=== PATIENT | male | born 1960 | race Caucasian/White ===

== ENCOUNTER → 2023-08-11 10:42 | Outpatient (REF) | payer MEDICARE, OTHER, SELFPAY | LOC: RAD 10:42 | PROVIDERS: ATTENDING PHYSICIAN Surgery Vascular Surgery; FAMILY PHYSICIAN Internal Medicine | DX: I73.9 Peripheral vascular disease, unspecified (principal) | CPT/HCPCS: 93922; 93925 ==

== ENCOUNTER 2024-07-06 02:20 | Emergency (ER) | payer MEDICARE, OTHER, SELFPAY ==
[2024-07-06 02:31] VITALS: BMI 29.2
[2024-07-06 02:32] VITALS: BP 117/64
--- NOTE | 2024-07-06 02:40 | ED.GENMED ---
History of Present Illness
General
Chief Complaint: Fall
Source: patient
Exam Limitations: none
Time Seen by Provider: 07/06/24 02:38
Nursing documentation reviewed up to this point in time: agreed with
History of Present Illness
History of Present Illness:
This is a 63-year-old male with past medical history of CHF, peripheral artery disease, bipolar disorder, depression presents to emergency department today with concerns of nasal pain and mild headache following a fall a bed tonight. Patient
reports that he was going to bed and woke up in the middle of the night to grab something off of his nightstand when he was reaching for something and slipped out of bed,, hitting his head on the ground and injuring his nose and hitting his head.
He not lose consciousness. He states that he called for staff right away. He denies any neck pain. He denies any chest pain, shortness of breath, dizziness. Staff then found him and called 911. He was not on the floor for a long period of time.
Past History
Past History
ED Past Medical History: Arrthythmia (Paroxysmal atrial fibrillation), CHF, HTN, Renal failure, Other (Bipolar, schizophrenia, heart failure, peripheral arterial disease, degenerative joint disease, type 2 diabetes, cardiomyopathy, ischemic lower
extremity disease) and Other (Anemia, GI bleed, bilateral lower extremity dry gangrene)
Social History
Tobacco: Former smoker
Living: assisted
Employment: Disabled
Family History
Family History: Unable to obtain
Review of Systems
Review of Systems
All Other Systems: ROS reviewed and negative except as documented in HPI and ROS
Phy Exam
Physical Exam
Physical Exam:
General: Patient is well appearing and in no acute distress; non-toxic
Skin: 2 cm laceration noted to the bridge of the nose with active bleeding
Head: No palpable hematomas of the scalp no tenderness to palpation of the facial bones, TMJ joints intact bilaterally
Eyes: Sclera non-icteric. EOMs intact.
Neck: No tenderness palpation of the cervical spine
Cardiac: Regular rate and rhythm, no murmurs, no tenderness palpation of the chest wall
Peripheral Vascular: No lower extremity swelling or edema
Pulm: Normal respiratory effort, no wheezes, rales, or rhonchi
Musculoskeletal: No tenderness palpation of the bilateral upper and lower extremities
Neuro: CN II-XII intact, no focal neurologic deficits.
Psychiatric: Appropriate mood and affect.
Course
Orders/Labs/Results
Orders:
Orders
07/06/24 02:29
CT Cervical Spine W/o Iv Contr Urgent
Comment: incorrect order placed by Rn
Reason For Exam: fall, thinners
CT Head W/o Iv Contrast Urgent
Comment:
Reason For Exam: fall, thinners
07/06/24 03:13
Tetanus/Diphth/Acelpertussis [Adacel] 0.5 ml IM .ONCE ONE
07/06/24 04:25
Amoxicillin 875 mg/Clav 125 mg [Augmentin 875 mg/125 mg] 1 tablet PO NOW STA
Vital Signs
Initial and Last Documented VS:
Initial Vital Signs
Temp Pulse Ox
97.6 F 97
07/06/24 02:26 07/06/24 02:26
Last Documented Vital Signs
Temp Pulse Resp BP Pulse Ox
97.6 F 59 18 148/64 98
07/06/24 02:26 07/06/24 05:28 07/06/24 05:28 07/06/24 06:05 07/06/24 05:30
Procedures
Laceration Closure
nose:
Status of Wound: clean
Size of Wound in cm: 2
Description of Wound Edges: sharp
Preparation: cleaned with saline
Revision/Debridement: routine- no revision
Type of Closure: Dermabond-skin glue
MDM/Problems Addressed
Differential Diagnosis Includes:
Differentials include nasal fracture, anterior epistaxis, subdural hematoma, epidural hematoma, cervical sprain
MDM/Problems Addressed:
63-year-old male presents emergency department today after falling out of bed. Physical exam is well-appearing in no acute distress. He not was consciousness. He is a laceration to the bridge of his nose which was part of Dermabond. CT scan
reveals fracture of the nasal bone. He was started on antibiotics. Referral given for ENT. Patient is presenting. Directions provided discharge. CT shows no evidence of acute intracranial bleeding. He has no evidence of fracture within the
cervical spine no tenderness palpation of the cervical spine. Patient stable for discharge.
*Pulse Oximetry
Patient hypoxic: no
*Critical Care Note
Total Time (30-74mins, 75-104mins- exclusive of procedures): Not Applicable
Data Reviewed
Review of Other/Old Records Reveals: Records (Reviewed ER physician mentation 05/20/2020 patient seen for anterior episodic)
Source: patient and records
ED Attending Note
-
Portions of this chart may have been created with voice recognition software.� Occasional wrong word or��sound alike� substitutions may have occurred due to the inherent limitations of voice recognition software.
Discharge Plan
Departure
Patient Disposition: Home (Routine Discharge)
Date of Disposition: 07/06/24
Time of Disposition: 05:19
Patient with high blood pressure during this ER visit?: Yes
Condition: Good
Discharge Problem:
Fracture of nasal bone, Fall
Instructions: Nose fracture, Laceration Repair With Glue (DC), Preventing falls in adults
Prescriptions:
New
amoxicillin-pot clavulanate 875-125 mg tablet
1 tab PO BID 5 Days Qty: 10 0RF
No Action
ammonium lactate 1 APPLIC lotion
1 applic topical DAILY
Patient Comments:
04/30/19: b/l lower extremities - dry skin
amiodarone [Pacerone] 200 MG tablet
200 mg PO DAILY
cholecalciferol (vitamin D3) 1,000 UNITS tablet
1,000 units PO DAILY
sennosides [senna] 1 TABLET tablet
2 tab PO DAILYPRN PRN (Reason: constipation)
acetaminophen 325 MG tablet
650 mg PO Q4HPRN PRN (Reason: mild pain, temp>100.4)
atorvastatin 20 MG tablet
20 mg PO DAILY
aspirin 81 MG tablet,delayed release (DR/EC)
81 mg PO DAILY
Patient Comments:
on hold 05/20-05/21/20
bisacodyl [OneLAX Bisacodyl] 10 MG suppository
10 mg OR DAILYPRN PRN (Reason: constip. if sorbitol ineffect.)
divalproex 500 MG tablet extended release 24 hr
1,000 mg PO DAILY
benztropine 1 MG tablet
1 mg PO DAILY
sodium phosphates [Enema] 135 ML enema
135 ml OR DAILYPRN PRN (Reason: if suppository ineffective)
folic acid 1 MG tablet
1 mg PO DAILY
sorbitol 30 ML solution
30 ml PO DAILYPRN PRN (Reason: constipation)
sertraline 50 MG tablet
50 mg PO DAILY
olanzapine 20 MG tablet
20 mg PO DAILY
thiamine HCl (vitamin B1) [Vitamin B-1] 50 MG tablet
50 mg PO DAILY
chlorhexidine gluconate 1 ML mouthwash
1 dose dental DAILY
clopidogrel 75 MG tablet
75 mg PO DAILY 0RF
furosemide 20 MG tablet
20 mg PO DAILY 0RF
sodium chloride [Saline Nasal Mist] 126 ML mist
2 spray NS TID Qty: 1 0RF
Rx Instructions:
To start 05/24/20
multivitamin 1 EACH tablet
1 ea PO DAILY
metoprolol succinate [Toprol XL] 50 MG tablet extended release 24 hr
50 mg PO DAILY
clopidogrel 75 MG tablet
75 mg PO DAILY
ferrous sulfate [FeroSul] 325 MG tablet
325 mg PO DAILY
docusate sodium 100 MG capsule
100 mg PO BID
hydrocortisone 1 APPLIC cream
1 applic topical PRN PRN (Reason: .rectal irritation)
metoprolol succinate [Toprol XL] 25 MG tablet extended release 24 hr
25 mg PO DAILY
divalproex 250 MG tablet extended release 24 hr
250 mg PO DAILY
chlorhexidine gluconate 15 ML mouthwash
15 ml PO DAILY
Referrals:
Rebel López MD [Active] - Call in 1-3 days for appt
UNKNOWN - PT DOES,NOT KNOW [Family Provider] -
Activity Restrictions/Additional Instructions:
Your CT scans of your head reveals an anterior nasal bone fracture with no evidence of bleeding in the brain or fracture in the spine.
An antibiotic called Augmentin has been sent to your pharmacy. Please take 1 tablet twice daily for 5 days.
You can take Tylenol as needed for your pain. The glue will peel off on its own as the wound heals. Please keep the wound dry for 24 hours. After 24 hours, you can clean it with mild soap and water. Please do not use hydrogen peroxide or alcohol
in the wound as this will dissolve the glue.
The nasal fracture should heal on its own. Please call the attached number to schedule appointment with ENT for follow-up regarding this.
PLEASE RETURN EMERGENCY DEPARTMENT TO DEVELOP CHEST PAIN, SHORTNESS OF BREATH, PERSISTENT PAIN, HEADACHE, INTRACTABLE NAUSEA OR VOMITING, FAINTING SPELLS, DIZZINESS, OR ANY OTHER SIGNS OR SYMPTOMS WORRISOME TO YOU.
Interventions
Interventions:
*Risk Screen - Suicide Last Done: 07/06/24 02:26
*General Assessment Last Done: 07/06/24 02:26
*Neglect/Abuse Screening Last Done: 07/06/24 02:26
*ED- Fall Risk Assessment Last Done: 07/06/24 02:26
*ED COVID-19 Vaccine History Last Done: 07/06/24 02:26
*Nursing Disposition Last Done: 07/06/24 06:36
ED-Musculoskeletal Assessment Last Done: 07/06/24 02:26
ED- Neurological Assessment Last Done: 07/06/24 02:26
ED-Skin Assessment Last Done: 07/06/24 02:26
Discharge Date and Time
Print Language: PASHTO
[2024-07-06] MEDS: ADACEL 0.5 ML IM (03:46)
[2024-07-06 03:48] VITALS: BP 145/59
[2024-07-06] MEDS: AUGMENTIN 875 MG/125 MG 1 TABLET PO (05:23)
[2024-07-06 05:25] VITALS: BP 164/73
[2024-07-06 06:05] VITALS: BP 148/64
== END 2024-07-06 06:36 | disposition home or self-care (01) ==
LOC: EMR 02:20
PROVIDERS: EMERGENCY PHYSICIAN Emergency Medicine
DX: S02.2XXA Fracture of nasal bones, initial encounter for closed fracture (principal); S01.21XA Laceration without foreign body of nose, initial encounter; R51.9 Headache, unspecified; W06.XXXA Fall from bed, initial encounter; Z23 Encounter for immunization; I13.0 Hypertensive heart and chronic kidney disease with heart failure and stage 1 through stage 4 chronic kidney disease, or unspecified chronic kidney disease; E11.22 Type 2 diabetes mellitus with diabetic chronic kidney disease; N18.9 Chronic kidney disease, unspecified; I50.9 Heart failure, unspecified; I25.5 Ischemic cardiomyopathy; I73.9 Peripheral vascular disease, unspecified; F31.9 Bipolar disorder, unspecified; F32.A Depression, unspecified; F20.9 Schizophrenia, unspecified; M19.90 Unspecified osteoarthritis, unspecified site; D64.9 Anemia, unspecified; I48.0 Paroxysmal atrial fibrillation; E11.51 Type 2 diabetes mellitus with diabetic peripheral angiopathy without gangrene; Z87.891 Personal history of nicotine dependence; Z79.02 Long term (current) use of antithrombotics/antiplatelets; Z88.8 Allergy status to other drugs, medicaments and biological substances
CPT/HCPCS: 99284; 12011; 90471; 70450; 72125; 90715

== ENCOUNTER 2024-07-12 19:21 | Inpatient (IN) | payer MEDICARE, OTHER, SELFPAY ==
[2024-07-12] VITALS (15 sets, daily range): BP systolic 76–134; BP diastolic 40–87; BMI 30.3; BMI 28.3
--- NOTE | 2024-07-12 14:48 | ED.GENMED ---
History of Present Illness
General
Chief Complaint: Change in Mental Status
Source: records
Exam Limitations: clinical condition
Time Seen by Provider: 07/12/24 14:33
History of Present Illness
History of Present Illness:
63-year-old male sent for lethargy. Time course unknown. He did have a fall last week. I am trying to contact the facility to see when there was a change. At this time we have no information.
Past History
Past History
ED Past Medical History: Arrthythmia (Paroxysmal atrial fibrillation), CHF, HTN, Renal failure, Other (Bipolar, schizophrenia, heart failure, peripheral arterial disease, degenerative joint disease, type 2 diabetes, cardiomyopathy, ischemic lower
extremity disease) and Other (Anemia, GI bleed, bilateral lower extremity dry gangrene)
Social History
Tobacco: Former smoker
Living: [facility]
Employment: Disabled
Family History
Family History: Unable to obtain
Review of Systems
Review of Systems
Unable to obtain full review of systems at this time due to: due to acuity
All Other Systems: Not applicable
Phy Exam
Physical Exam
Physical Exam:
GENERAL: Lethargic. Chronically ill-appearing.
EYE: Orbits normal.
NECK: Supple, no significant adenopathy.
ENT: Pharynx without erythema. Poor dentition
CARDIAC: Regular rate and rhythm without any obvious murmurs.
LUNGS: Clear breath sounds,normal
ABDOMEN: Soft, without focal tenderness or distention
NEUROLOGICAL: Lethargic. Will at times attempt to follow very simple commands. However does not really withdraw to pain. Eyes deviated out really bilateral. Pupils relatively small but reactive
SKIN: Warm and dry
MUSCULOSKELETAL: Chronic edema
Course
Orders/Labs/Results
Orders:
Orders
07/12/24 14:30
EKG [Electrocardiogram (*1)] Urgent
Reason for Study: Fatigue / Weakness
EKG- Treatment ONCE
07/12/24 14:32
Complete Blood Count/With Diff Urgent
Comprehensive Metabolic Panel Urgent
Lactic Acid Urgent
Pro-BNP [NT-proBNP] Urgent
Troponin I Urgent
Urinalysis Reflex To Culture Urgent
Date Specimen was Collected: 07/12/24
Time Specimen was Collected: 14:29
Urine Drug Abuse Screen Urgent
Date Specimen was Collected: 07/12/24
Time Specimen was Collected: 14:29
Urine Microscopic Reflex Cult Urgent
07/12/24 14:39
CT Head W/o Iv Contrast Urgent
Comment:
Reason For Exam: lethargy. recent trauma
Bedside Glucose- Treatment ONCE
Cardiac Monitoring- Treatment ONCE
O2 Therapy [RESP] Stat
Titrate/Wean O2 to maintain O2 sat greater than (%): 93
Pulse Ox/cont/shift [RESP] Stat
Quantity: 1
07/12/24 14:40
Electrocardiogram (*1) Stat
Reason for Study: Other
Other Reason for Exam: neuro symptoms
EKG- Treatment ONCE
Ammonia Urgent
Venous Blood Gas Urgent
%Oxygen/Room Air: 94% on 6L NC
07/12/24 15:21
CT Abd/pel Without Iv Or Oral Urgent
Comment:
Reason For Exam: Unresponsive/poor p.o. intake/leukocytosis
07/12/24 15:22
Add On- LAB Urgent
Tests Added?: depakote level
07/12/24 15:27
Add On- LAB Urgent
Tests Added?: Depakane
07/12/24 16:22
CXR Port [CR Chest Portable - 1 View] Urgent
Comment:
Reason For Exam: Lethargy/hypoxia
Reason Study Needs to be Portable: Patient Unstable
07/12/24 16:49
CefTRIAXone [Rocephin] 1,000 mg IV NOW STA
07/12/24 16:53
ABG [Arterial Blood Gas] Urgent
%Oxygen/Room Air: 4l
07/12/24 17:11
Depakane Routine
Comment: DRAW ON PLAIN RED, CANNOT ADD ON
Blood Culture Q30M
[facility] Source: Blood/Venous
Specimen Description:
Blood Culture Q30M
[facility] Source: Blood/Venous
Specimen Description:
07/12/24 17:30
0.9% Sodium Chloride 1000 ml [Nss] 1,000 ml IV 500 mls/hr
07/12/24 17:31
Admit/Transfer Patient As Directed
Co-Sign Provider:
Level of Care: Inpatient admission
Assign to:: Telemetry
Physician / Group: khadar floyd
Diagnosis: enceph 2/2 LLL pna poss aspiration, eva/ckd3, transaminitis
Reason for Telemetry: Arrhythmia
Date to Stop Telemetry: 07/15/24
Time to Stop Telemetry: 11:00
Reason for Hospitalization: enceph 2/2 LLL pna poss aspiration, eva/ckd3, transaminitis
Expected length of stay greater than two midnights?: Yes
ELOS- Estimated Length of Stay in days: 5
I certify the patient meets the requirements for IP care: Yes
Code Status As Directed
Resuscitation Status: Full Code
07/12/24 17:32
Doxycycline Hyclate [Vibramycin] 100 mg 0.9% Sodium Chloride 250 ml [Nss] 250 ml IV NOW
07/12/24 17:39
Add On- LAB Urgent
Tests Added?: urine druge abuse
07/12/24 17:47
PRN Pain Medication Management As Directed
May give lesser potent ordered pain med per pt: Yes
preference::
Protocol:: Medication orders for pain may be administered in a
manner that supports deferring to patient preference
when the pt is:
- Requesting an ordered lesser potent pain medication.
Least to most potent pain medications are defined
as: acetaminophen < NSAID < tramadol < opioids
(morphine, oxycodone, hydromorphone).
- Requesting a lesser dose of the same medication IF
ORDERED.
- Requesting a less intrusive route of administration
if both routes are prescribed by the provider (PO <
IV).
07/12/24 18:04
COVID-19 Antigen Urgent
Source: Nasal Swab
Influenza A+B Rapid Molecular Urgent
[facility] Source: Nasal Swab
Specimen Description:
07/15/24 11:00
DC Protocol for Telemetry ONCE
Abnormal Lab Results
07/12/24 07/12/24 07/12/24
14:32 14:40 15:17
WBC 11.1 H 10^3/uL
(4.8-10.8)
RBC 3.13 L 10^6/uL
(4.70-6.10)
Hgb 9.6 L g/dL
(13.0-18.0)
Hct 28.9 L %
(39.0-52.0)
RDW 15.9 H %
(11.5-14.5)
Abs Immat Gran (auto) 0.1 H 10^3/uL
(0-0.05)
Absolute Neuts (auto) 8.8 H 10^3/uL
(1.4-6.5)
Absolute Lymphs (auto) 0.9 L 10^3/uL
(1.2-3.4)
Absolute Monos (auto) 1.3 H 10^3/uL
(0.1-0.6)
Neutrophils % 79.1 H %
(42.2-75.2)
Lymphocytes % 8.0 L %
(20.5-51.1)
Monocytes % 12.0 H %
(1.7-9.3)
pO2
ABG O2 Sat (Measured)
VBG pO2 69 H mmHg
(30-50)
VBG HCO3 27.8 H mmol/L
(22-27)
BUN 42 H mg/dl
(9-20)
Creatinine 2.5 H mg/dL
(0.7-1.3)
Glucose 123 H mg/dl
(70-99)
AST 86 H U/L
(17-59)
ALT 67 H U/L
(0-50)
Ammonia < 9 L umol/L
(9-30)
Total Protein 5.7 L g/dl
(6.3-8.2)
Albumin 2.8 L g/dl
(3.5-5.0)
Ur Occult Blood Reflex 1+ A
(Negative)
Urine RBC 3-6 A /HPF
(0-2)
Urine Albumin (Reflex) 2+ A
(Neg - Trace)
POC Glucose 108 H mg/dl
(70-99)
07/12/24
16:53
WBC
RBC
Hgb
Hct
RDW
Abs Immat Gran (auto)
Absolute Neuts (auto)
Absolute Lymphs (auto)
Absolute Monos (auto)
Neutrophils %
Lymphocytes %
Monocytes %
pO2 38 L* mmHg
(83-108)
ABG O2 Sat (Measured) 58.5 L %
(94-98)
VBG pO2
VBG HCO3
BUN
Creatinine
Glucose
AST
ALT
Ammonia
Total Protein
Albumin
Ur Occult Blood Reflex
Urine RBC
Urine Albumin (Reflex)
POC Glucose
07/12/24 14:32
07/12/24 14:32
Vital Signs
Initial and Last Documented VS:
Initial Vital Signs
Pulse Resp Pulse Ox
53 19 98
07/12/24 14:57 07/12/24 14:57 07/12/24 14:57
Last Documented Vital Signs
Temp Pulse Resp BP Pulse Ox
97.6 F 59 15 108/46 96
07/12/24 14:58 07/12/24 18:52 07/12/24 18:52 07/12/24 18:52 07/12/24 18:52
MDM/Problems Addressed
Differential Diagnosis Includes:
Patient very lethargic. Time course unknown although implied is being relatively recent. We are contacting the facility to get more information. Multiple potential etiologies including delayed bleed or subdural, CVA, encephalopathy, electrolyte
imbalance, medications. Workup in progress. Discussed with patient's guardian. He is full code at this time although she would reconsider. There is been talk of hospice in the past although this was held off. Immediate decision is whether to
intubate. His oxygen levels are low but reasonable. He is moving air at this time. We will hold off if possible until we gather more information
*Radiology
Radiology exam reviewed: radiology read reviewed (Probable pneumonia left lower lobe. No other acute findings. Head CT no acute findings)
*Pulse Oximetry
Patient hypoxic: yes
*EKG
Interpreted by ED Provider?: Yes
Interpretation: abnormal
Comparison EKG: changes noted
Heart Rate: 55
Rate: bradycardiac
Rhythm: sinus
[place]: left axis deviation
Interval: normal interval
QRS Pattern: left vent hypertrophy
Ischemia: non-specific ST changes
*Pressfitter Interpretation
Rate: bradycardiac
Interpretation: abnormal
Heart Rate: 56
Rhythm: sinus
*Critical Care Note
Total Time (30-74mins, 75-104mins- exclusive of procedures): 45
Data Reviewed
Review of Other/Old Records Reveals: Labs, Records and Testing
Update Note
Update Note:
1520... Multiple rechecks. Blood pressure slightly low although oxygen levels doing well. Decreased O2. IV fluids. Stressed need to go to CT [facility]. Prerenal azotemia by labs. Will add abdominal CT scan. Discussed with nursing facility. Was
slightly off this morning but was able to take his medications. Much worse prior to ER arrival.
1625.. Workup relatively unremarkable except for renal insufficiency. Patient rechecked. Still lethargic but responds somewhat better to painful stimuli will wince open his eyes slightly. Possible CVA possible med effect. Discussed with
patient's guardian who still wants full code at this time. Will admit for further care
ED Attending Note
-
Portions of this chart may have been created with voice recognition software.� Occasional wrong word or��sound alike� substitutions may have occurred due to the inherent limitations of voice recognition software.
Discharge Plan
Departure
Patient Disposition: Admit
Date of Disposition: 07/12/24
Time of Disposition: 16:51
Presentation/result/management discussed w/ accepting MD/DO: Hospitalist
Discharge Problem:
Lethargy/change in mental status, Acute renal insufficiency lethargy/jones, Probable left lower lobe pneumonia
Prescriptions:
No Action
amiodarone [Pacerone] 200 MG tablet
300 mg PO BID
cholecalciferol (vitamin D3) 1,000 UNITS tablet
1,000 units PO DAILY
sennosides [senna] 1 TABLET tablet
1 tab PO BID
acetaminophen 325 MG tablet
650 mg PO Q4HPRN PRN (Reason: mild pain, temp>100.4)
atorvastatin 20 MG tablet
60 mg PO HS
aspirin 81 MG tablet,delayed release (DR/EC)
81 mg PO DAILY
bisacodyl [OneLAX Bisacodyl] 10 MG suppository
10 mg AR DAILYPRN PRN (Reason: if no bm aftr sorbitol )
benztropine 1 MG tablet
1 mg PO DAILY
sorbitol 30 ML solution
30 ml PO DAILYPRN PRN (Reason: constipation)
sertraline 50 MG tablet
50 mg PO DAILY
olanzapine 20 MG tablet
20 mg PO DAILY
furosemide 20 MG tablet
20 mg PO DAILY 0RF
metoprolol succinate [Toprol XL] 50 MG tablet extended release 24 hr
75 mg PO DAILY
clopidogrel 75 MG tablet
75 mg PO DAILY
docusate sodium 100 MG capsule
100 mg PO BID
sennosides [senna] 8.6 mg Tablet
17.2 mg PO DAILYPRN PRN (Reason: constipation)
divalproex [Depakote] 250 mg Tablet,Delayed Release (Dr/Ec)
750 mg PO BID
polyethylene glycol 3350 [Miralax] 17 gram Powder In Packet
17 g PO DAILY
calcium carbonate [Calcium 600] 600 mg calcium (1,500 mg) Tablet
1,200 mg PO DAILY
tamsulosin [Flomax] 0.4 mg Capsule
0.8 mg PO HS
lisinopril 10 mg Tablet
15 mg PO DAILY
Fleet Enema 19-7 gram/118 mL Enema
118 ml AR DAILYPRN PRN (Reason: if no bm aftr dulcalax)
guaifenesin 600 mg Tablet Extended Release 12hr
600 mg PO BIDPRN PRN (Reason: cough)
Referrals:
UNKNOWN,NO INTERVIEW [Family Provider] -
Interventions
Interventions:
*Risk Screen - Suicide Last Done: 07/12/24 14:58
*General Assessment Last Done: 07/12/24 14:58
*Neglect/Abuse Screening Last Done: 07/12/24 14:58
*ED- Fall Risk Assessment Last Done: 07/12/24 14:58
*ED COVID-19 Vaccine History Last Done: 07/12/24 14:58
ED- Pulmonary Assessment Last Done: 07/12/24 14:58
ED-Psychological Assessment Last Done: 07/12/24 14:58
ED- Neurological Assessment Last Done: 07/12/24 14:58
ED- Cardiac Assessment Last Done: 07/12/24 14:58
ED Swallowing Screen Last Done: 07/12/24 14:58
Discharge Date and Time
Print Language: SPANISH
[2024-07-12 14:49] LABS: Venous Blood Gas B.E. 2.2 mmol/L (-4 to +4); Venous Blood Gas HCO3 27.8 mmol/L (22-27); Venous Blood Gas O2 Sat % 94.4 %; Venous Blood Gas pCO2 47 mmHg (35-48); Venous Blood Gas pH 7.38 (7.32-7.43); Venous Blood Gas pO2 69 mmHg (30-50)
[2024-07-12 14:50] LABS: Hematocrit 28.9 % (39.0-52.0); Hemoglobin 9.6 g/dL (13.0-18.0); Mean Corp Hgb Conc. 33.2 g/dL (33.0-37.0); Mean Corpuscular Hgb 30.7 pg (27.0-31.0); Mean Corpuscular Volume 92.3 fL (80.0-94.0); Mean Platelet Volume 10.4 fL (7.4-10.4); Platelet Count 155 10^3/uL (130-400); Red Blood Cell Count 3.13 10^6/uL (4.70-6.10); Red Cell Dist. Width 15.9 % (11.5-14.5); White Blood Cell Count 11.1 10^3/uL (4.8-10.8)
[2024-07-12 15:11] LABS: Lactic Acid 1.4 mmol/L (0.7-2.0)
[2024-07-12 15:13] LABS: ALT (SGPT) 67 U/L (0-50); AST (SGOT) 86 U/L (17-59); Albumin 2.8 g/dl (3.5-5.0); Alkaline Phosphatase 70 U/L (38-126); Blood Urea Nitrogen 42 mg/dl (9-20); Calcium 8.4 mg/dl (8.4-10.2); Carbon Dioxide 27 mmol/L (22-30); Chloride 106 mmol/L (98-107); Estimated Creatinine Clearance 38 ml/min; Glucose 123 mg/dl (70-99); Potassium 4.2 mmol/L (3.5-5.1); Sodium 140 mmol/L (135-145); Total Bilirubin 0.9 mg/dl (0.2-1.3); Total Protein 5.7 g/dl (6.3-8.2); Urine Albumin 2+ (Neg - Trace); Urine Bilirubin Negative (Negative); Urine Glucose Negative (Negative); Urine Ketone Negative (Negative); Urine Leukocyte Negative (Negative); Urine Nitrite Negative (Negative); Urine Occult Blood 1+ (Negative); Urine Specific Gravity 1.005 (<1.030); Urine Urobilinogen 1+ (Neg - 1+); eGFR 28.16
[2024-07-12 15:17] LABS: Urine Character Clear (Clear); Urine Color Yellow
[2024-07-12 15:17] LABS: Ammonia < 9 umol/L (9-30)
[2024-07-12 15:20] LABS: Glucose - Point of Care 108 mg/dl (70-99)
[2024-07-12 15:20] LABS: NT-proBNP 4170 pg/ml; Troponin I 0.016 ng/ml
[2024-07-12 15:27] LABS: Urine Mucus Few
[2024-07-12 15:28] LABS: Urine Amorphous Seen; Urine Squamous Cell 0-2 /LPF (Few)
[2024-07-12 15:29] LABS: Urine Granular Cast 0-2 /LPF (0); Urine Waxy Cast 0-2 /LPF
[2024-07-12 15:30] LABS: Urine White Cell 0-2 /HPF (0-5)
[2024-07-12 15:34] LABS: % Basophils 0.3 % (0-2); % Eosinophils 0.1 % (0-6); % Immature Granulocytes 0.5 % (0-0.5); % Neutrophils 79.1 % (42.2-75.2); Absolute Immature Granulocytes 0.1 10^3/uL (0-0.05); Absolute Lymphocytes 0.9 10^3/uL (1.2-3.4); Absolute Monocytes 1.3 10^3/uL (0.1-0.6); Absolute Neutrophils 8.8 10^3/uL (1.4-6.5); Nucleated Red Blood Cells % 0 % (-)
--- NOTE | 2024-07-12 16:43 | HPS.HSE ---
Family Physician
-
Family Physician: NO INTERVIEW UNKNOWN
Chief Complaint
-
Lethergy
History of Present Illness
63 year male sent for lethargy of unknown time. According to the nurse he has increased weakness over the past week, typically pivots to stands in own room feeds self, Fed Self breakfast today but Progressive decline by Lunchtime today was unable
to do anything or eat was extremely lethargic not responding. Per nursing No reported h/a, nausea, vomiting, fever, abd pain, chest pain, palpitations, cough, shortness of breath. The patient had a fall last week fracturing his nose.. According
to the nurse at [facility] he had a creatinine of 1.95 with bun of 26 on 07/08/2024 currently today he is creat is 2.5 with a bun of 42. The patient is obtunded opens eyes briefly to name then falls right back asleep. Patient has a past medical
history of CVA per CT head schizophrenia with flights of ideas talks to self, bipolar disorder, depression, cognitive impairment�slight typically knows name, place of living, paroxysmal A-fib, chronic ambulatory dysfunction pivots to stand uses
wheelchair, CKD stage III?, Chronic CHF, cardiomyopathy, chronic anemia, GI bleed, DM2, HTN, PAD, ischemia lower extremity, bilateral lower extremity dry gangrene toes, DJD, former smoker, former alcoholic, constipation
Medical History
Past Medical History
Past Medical History: Reports Other
Additional Past Medical History:
schizophrenia with flights of ideas talks to self
bipolar disorder
depression
cognitive impairment�slight typically knows name, place of living, feed self, pivots to transfer self minimal assist with bathing
Paroxysmal A-fib
CVA per CT head
chronic ambulatory dysfunction pivots to stand uses wheelchair
CKD stage III?
Chronic CHF
cardiomyopathy
chronic anemia
GI bleed
DM2
HTN
PAD
ischemia lower extremity
bilateral lower extremity dry gangrene toes
DJD
former smoker
former alcoholic
constipation
Past Surgical History: Reports Other (Hernia repair)
Social History
Tobacco: Former Smoker
Alcohol: Former
Personal: Single
Living: Longterm ([facility])
Employment: Disabled
Family History
Family History: Unable to Obtain
Allergies / Home Medications
Allergies reflects when Allergies were last updated in [employer].
Home Medications with original date entered in [employer]
Allergy/Medication List:
Allergies
Allergy/AdvReac Type Severity Reaction Status Date / Time
haloperidol Allergy Unknown Verified 07/06/24 02:26
Home Medications
acetaminophen 325 mg tablet 650 mg PO Q4HPRN PRN mild pain, temp>100.4 04/07/19
amiodarone 200 mg tablet (Pacerone) 300 mg PO BID Heart disease 04/07/19
aspirin 81 mg tablet,delayed release 81 mg PO DAILY Blood clot prevention/tx 04/07/19
atorvastatin 20 mg tablet 60 mg PO HS High cholesterol 04/07/19
benztropine 1 mg tablet 1 mg PO DAILY Neurological Condition 04/07/19
bisacodyl 10 mg rectal suppository (OneLAX Bisacodyl) 10 mg WI DAILYPRN PRN if no bm aftr sorbitol 04/07/19
cholecalciferol (vitamin D3) 25 mcg (1,000 unit) tablet 1,000 units PO DAILY Supplement 04/07/19
olanzapine 20 mg tablet 20 mg PO DAILY Mental Health/Anxiety 04/07/19
sennosides 8.6 mg tablet (senna) 1 tab PO BID 04/07/19
sertraline 50 mg tablet 50 mg PO DAILY Mental Health/Anxiety 04/07/19
sorbitol 70 % solution 30 ml PO DAILYPRN PRN constipation 04/07/19
furosemide 20 mg tablet 20 mg PO DAILY 05/17/19
clopidogrel 75 mg tablet 75 mg PO DAILY 01/16/21
docusate sodium 100 mg capsule 100 mg PO BID 01/16/21
metoprolol succinate 50 mg tablet,extended release 24 hr (Toprol XL) 75 mg PO DAILY 01/16/21
calcium carbonate (Calcium 600) 1,200 mg PO DAILY 07/12/24
divalproex 250 mg tablet,delayed release (Depakote) 750 mg PO BID 07/12/24
guaifenesin 600 mg tablet, extended release 12 hr 600 mg PO BIDPRN PRN cough 07/12/24
lisinopril 10 mg tablet 15 mg PO DAILY 07/12/24
polyethylene glycol 3350 17 gram oral powder packet (Miralax) 17 g PO DAILY 07/12/24
sennosides 8.6 mg tablet (senna) 17.2 mg PO DAILYPRN PRN constipation 07/12/24
sodium phosphates 19 gram-7 gram/118 mL enema (Fleet Enema) 118 ml WI DAILYPRN PRN if no bm aftr dulcalax 07/12/24
tamsulosin 0.4 mg capsule (Flomax) 0.8 mg PO HS 07/12/24
Review of Systems
-
History Source: Longterm ([place] female nurse at [facility])
A 12 point ROS was completed and negative except as noted: Yes
Constitutional: Reports Fatigue (Progressive over the past week); Denies Fever or Chills
EENT: Reports Other (Resolving ecchymosis bilateral lower orbits due to fall 1 week ago with nasal bone fracture); Denies Sore Throat or Runny Nose
Respiratory: Denies Cough or Trouble Breathing
Cardiac: Denies Chest Pain, Diaphoresis, Palpitations or Syncope
Abdomen/GI: Denies Abdominal Pain, Nausea, Vomiting, Diarrhea or Constipated
: Denies Dysuria, Frequency, Flank Pain or Incontinence
Musculoskeletal: Denies Joint Pain or Edema
Skin: Denies Itching or Rash
Neurological: Reports Weakness (Generalized); Denies Dizzy or Headache
Endocrine: Reports Other (Decreased oral intake over the past few days)
Psych: Reports Other (Obtunded opens eyes briefly to name then falls asleep)
Physical Exam
Vital Signs
Vital Signs
Temp Pulse Resp BP Pulse Ox
97.6 F 61 21 127/80 97
07/12/24 14:58 07/12/24 16:04 07/12/24 16:04 07/12/24 16:04 07/12/24 16:04
Physical Exam
General: Poor Appetite (Crease over the past week) and Other (Obtunded opens eyes briefly to name then falls asleep); No Fever or Chills
HEENT: NormoCephalic, Anicteric, PERRLA, Radium Conjunctivae, Oxygen and Other (Healing bruises bilateral orbits from fall 1 week ago)
Respiratory: Rhonchi (Expiratory right upper lung); No Wheezes or Rales
Cardiac: S1/S2 and Regular Rhythm; No Murmur, Rub or Gallop
Breast: Deferred by me
GI: Soft, Non Tender, Non Distended, Normal Bowel Sounds and No Hepatosplenomegaly
Rectal: Deferred by Provider
Genito-urinary: Deferred by me
Musculoskeletal: No Clubbing, No Cyanosis and No Edema
Skin: Warm and Dry; No Rash
Neuro: Other (Obtunded opens eyes briefly to name then falls asleep)
Psych: Other (Obtunded)
Laboratory Results
-
07/12/24 14:32
07/12/24 14:32
Laboratory Results
Lactic Acid 1.4 mmol/L (0.7-2.0) 07/12/24 14:32
Total Bilirubin 0.9 mg/dl (0.2-1.3) 07/12/24 14:32
AST 86 U/L (17-59) H 07/12/24 14:32
ALT 67 U/L (0-50) H 07/12/24 14:32
Alkaline Phosphatase 70 U/L (38-126) 07/12/24 14:32
Troponin I 0.016 ng/ml 07/12/24 14:32
Data Reviewed
-
CT Scan: Report Reviewed by me
Lab Data: Labs Reviewed by me
Impression/Plan
-
Impression/Plan:
Admit To telemetry
# Metabolic encephalopathy likely secondary to LLL PNA concern possible aspiration pneumonia
-97%
-O2 nasal cannula
- Iv Zosyn, doxycyline
- Check Depakote level, blood cultures x 2
- Check COVID, influenza
- Speech swallow eval
Ct abd/pelvis without IV or oral Contrast :
1. Left lower lobe consolidation highly suspicious for pneumonia. Recommend follow-up imaging to rule out underlying mass.
2. No significant acute process in the abdomen or pelvis.
#Debo on CKD 3
Decreased oral intake over the past week per nursing staff at [facility]
creat 2.5 was 1.95 with bun 26 on 07/08/2024
- IV NSS1 L now then IV NSS 60 cc an hour times additional liter
- Follow CMP
-HOLD lisinopril 15 mg daily, Lasix 20 mg daily
#Acute transaminitis likely reactive
ast 86, alt 67
- Follow CMP
- Hold atorvastatin 60 mg at bedtime
#CVA HX
Old bilateral basal ganglia infarcts redemonstrated
Ct head:
The ventricles are normal in size, configuration, and position for age. There is no intra- or extra-axial mass, hemorrhage, or fluid collection.
Old bilateral basal ganglia infarcts redemonstrated
No new suspicious areas of abnormal mass effect or attenuation are noted. Small right maxillary sinus mucus retention cyst redemonstrated.
No depressed calvarial fracture. Minimally depressed right nasal bone fracture.
#Fall last week with nasal fracture
- Healing bruises under bilateral eyes
PT/OT consult
#Bipolar Schizophrenia
#History of depression
-cont Divalproex 750 mg twice daily , cont Olanzapine 20 mg daily, Zoloft 50 mg daily
#Former alcoholic
#Mild cognitive impairment
According to nursing staff knows first and last name, knows location of his room wheels himself throughout the facility feed self transfers self with pivoting and standing is able to wash self with mild assistance
#Parox. Afib
-cont amiodarone 300 mg daily , cont Asa 81 mg daily ,cont metoprolol 25mg Daily
#Chronic Chf
#Cardiomyopathy
Bnp 4170
-Hold Lasix as patient appears dry
#Chronic anemia
hgb 9.6 Prior fluctuating prior 12.6 on 12/2020 prior 8 on 05/17/19
#GI Bleed hx
- Continue calcium carbonate 1200 mg p.o. daily
#DM2
accuchecks Q6h with SSI low, check HgbA1c
#HTN
Bp 127/80
- Hold lisinopril 15 mg daily due to DEBO, continue metoprolol succinate 75 mg daily with hold parameters
#BPH
UA negative
- Continue Flomax 0.8 mg at bedtime with hold parameters
#PAD
#Ischemia lower extremity disease
#Bilat lower extremity dry gangrene
- cont Plavix 75 mg daily
#DJD
#Constipation
- CT abdomen pelvis negative for constipation
MiraLAX 17 g daily, senna 17.2 mg p.o. daily as needed constipation, continue Colace 100 mg p.o. twice daily
#Former smoker
#Chronic ambulatory dysfunction pivots to transfer, uses walker
- PT/OT
Dvt proph
Subcu heparin
Full code per alf record patient also has guardian Yamini Tran [phone]
[2024-07-12 17:00] LABS: B.E. 0.2 mmol/L; O2 Saturation % 58.5 % (94-98); PCO2 46 mmHg (35-48); pH 7.36 (7.35-7.45)
[2024-07-12 17:01] LABS: PO2 38 mmHg (83-108)
[2024-07-12 17:35] LABS: Depakane 72.5 ug/ml (50.0-120.0)
[2024-07-12] MEDS: ROCEPHIN 1000 MG IV (17:45)
[2024-07-12] MEDS: NSS 1000 IV ×2 (17:48→23:00)
[2024-07-12] MEDS: VIBRAMYCIN 260 MG IV (17:48)
--- NOTE | 2024-07-12 18:00 | W.PN.UPDATE ---
Update Note
Progress Note Update
This is an addendum to the H&P written by Chloe Hollins on 07/12/2024. Patient seen and examined independently with SKI PATROL DIRECTOR.
63-year-old male past medical history of paroxysmal atrial fibrillation, chronic CHF, PAD, CKD 3, CVA, bipolar schizophrenia, depression, chronic anemia, GI bleeding, type 2 diabetes, hypertension, BPH, degenerative disease, constipation, former
smoker, chronic ambulatory dysfunction, presenting for weakness, failure to thrive, eating less over the past few days but all of a sudden became obtunded today after breakfast.
Vital signs unremarkable. Patient appears very clinically dry on examination.
Labs show PRESTON with creatinine of 2.5 from 1.6. Mild transaminitis. Ammonia level negative. Cardiac BNP 4100. Leukocytosis. Hemoglobin 9.6 within his normal range. ABG shows PO2 of 38, normal pH of 7.36.
CT head no acute abnormality.
CT abdomen pelvis shows left lower lobe consolidation highly suspicious for pneumonia. Chest x-ray shows bibasilar pneumonia.
Patient with metabolic encephalopathy and obtundation seems to be secondary to pneumonia possible aspiration pneumonia.
Blood cultures are pending. Check COVID and flu. IV fluids. Zosyn/doxycycline. Hold nephrotoxic medications.
[2024-07-12 18:04] LABS: Amphetamines Negative (Negative); Barbiturates Negative (Negative); Benzodiazepines Negative (Negative); Buprenorphine Negative (Negative); Cocaine Negative (Negative); Marijuana Negative (Negative); Methadone Negative (Negative); Methamphetamines Negative (Negative); Opiates Negative (Negative); Phencyclidine Negative (Negative); Tricyclic Antidepressants Negative (Negative)
[2024-07-12 18:26] LABS: COVID-19 Antigen Negative (Negative)
[2024-07-12] MEDS: PACERONE PO (23:01)
[2024-07-12] MEDS: ZOSYN 50 IV (23:02)
[2024-07-12] MEDS: SENOKOT 8.6 MG PO (23:28)
[2024-07-12] MEDS: COLACE PO ×2 (23:29→23:47)
[2024-07-12] MEDS: HEPARIN 5000 UNITS SC (23:29)
[2024-07-12] MEDS: FLOMAX PO (23:29)
[2024-07-12] MEDS: DEPAKOTE (12 HR RELEASE) PO ×2 (23:40→23:46)
[2024-07-13] VITALS (7 sets, daily range): BP systolic 104–162; BP diastolic 58–86; O2SAT 95; BMI 28.0
[2024-07-13 00:13] LABS: Glucose - Point of Care 118 mg/dl (70-99)
[2024-07-13] MEDS: ZOSYN 50 IV ×3 (04:02→16:28)
[2024-07-13] MEDS: VIBRAMYCIN 260 MG IV (05:31)
[2024-07-13 05:57] LABS: Glucose - Point of Care 105 mg/dl (70-99)
--- NOTE | 2024-07-13 08:42 | W.PN.HOSP.TC ---
Addendum entered and electronically signed by Yazan Lindquist MD 07/13/24 13:21:
updated POA today, Wanda. RAMO asked cardio evaluation.
Original Note:
Today's Communication/Plan
-
IV antibiotics.
Assessment / Plan
Assessment / Plan
Physical exam:
General: Acute on chronically ill
HEENT: Poor dentition. Normocephalic, Atraumatic and dry mucous Membranes
Respiratory: Bilateral rhonchi; Negative Wheezes, Rales
Cardiac: Regular Rhythm and S1/S2
GI: Soft, Nontender and Nondistended
Musculoskeletal: No Clubbing, No Cyanosis and No Edema
Neuro: Awake, Alert and Oriented
Psych: Calm
A/P:
Acute metabolic encephalopathy:
Related to PRESTON and pneumonia
Improving
Aspiration pneumonia:
Continue IV antibiotic--> discontinue Rocephin and doxycycline and continue with Zosyn
Monitor clinical course
PRESTON:
Improved with IV hydration
Stop IV fluid
Avoid nephrotoxic
Monitor renal function
Dysphagia:
Speech therapy recommend to start IDDSI level 6
Plan for VSE
Elevated LFTs:
Monitor trend
Continue hold statins
Check ultrasound right upper quadrant
Recent fall with nasal fracture:
Pain control
PT eval
History of schizophrenia/depression/cognitive impairment/former alcoholic:
On Depakote olanzapine and Zoloft
Obtain twelve-lead EKG
Chronic systolic CHF:
Holding diuretics due to PRESTON
On b-blockers
Paroxysmal atrial fibrillation:
Sinus bradycardia on admission EKG
On metoprolol for rate control
On amiodarone for antiarrhythmic-appears to be a high dose
Diabetes mellitus type 2:
Insulin sliding scale
BPH:
Continue
Peripheral vascular disease:
Continue antiplatelets
DVT prophylaxis:
Heparin SQ
CODE STATUS:
Full code
Total time spent on today's encounter was 52 minutes which included time spent in counseling the patient/family regarding diagnosis and treatment plan as listed above, goals of care, and symptom management. Case was discussed with nursing staff,
specialists, and care coordinators/case management. All labs and imaging personally reviewed by me. Remainder the time spent in detailed review of previous records, lab data, imaging, and other medical provider documentation.
Anticipated Discharge: > 48 hours
Subjective/Interval History
-
Date of Service: July 13, 2024
Patient more alert today. Still has some cough. Afebrile
Objective Data
-
Labs:
Laboratory Results
07/13/24
06:28
WBC Pending
Hgb Pending
Hct Pending
Plt Count Pending
Sodium Pending
Potassium Pending
Chloride Pending
Carbon Dioxide Pending
BUN Pending
Creatinine Pending
Glucose Pending
Calcium Pending
Total Bilirubin Pending
AST Pending
ALT Pending
Alkaline Phosphatase Pending
Vital Signs:
Vital Signs
Temp Pulse Resp BP Pulse Ox
99.1 F 56 22 137/59 96
07/13/24 07:00 07/13/24 07:00 07/13/24 07:00 07/13/24 07:00 07/13/24 07:00
[2024-07-13 08:44] LABS: Hematocrit 27.4 % (39.0-52.0); Hemoglobin 8.6 g/dL (13.0-18.0); Mean Corp Hgb Conc. 31.4 g/dL (33.0-37.0); Mean Corpuscular Hgb 30.4 pg (27.0-31.0); Mean Corpuscular Volume 96.8 fL (80.0-94.0); Mean Platelet Volume 10.6 fL (7.4-10.4); Platelet Count 133 10^3/uL (130-400); Red Blood Cell Count 2.83 10^6/uL (4.70-6.10); Red Cell Dist. Width 15.8 % (11.5-14.5); White Blood Cell Count 8.4 10^3/uL (4.8-10.8)
[2024-07-13 08:50] LABS: ALT (SGPT) 61 U/L (0-50); AST (SGOT) 73 U/L (17-59); Alkaline Phosphatase 60 U/L (38-126); Blood Urea Nitrogen 27 mg/dl (9-20); Calcium 6.4 mg/dl (8.4-10.2); Carbon Dioxide 21 mmol/L (22-30); Chloride 115 mmol/L (98-107); Estimated Creatinine Clearance 70 ml/min; Glucose 44 mg/dl (70-99); HDL Cholesterol 13 mg/dl; LDL Cholesterol, Calculated 29.99999 mg/dl; Magnesium 1.5 mg/dl (1.6-2.3); Potassium 3.7 mmol/L (3.5-5.1); Sodium 144 mmol/L (135-145); Total Bilirubin 0.3 mg/dl (0.2-1.3); Total Cholesterol < 50 mg/dl (50-199); Total Protein 4.7 g/dl (6.3-8.2); Triglyceride 37 mg/dl (10-149); Very Low Density Lipoprotein 7 mg/dl (0-30); eGFR > 60.00
[2024-07-13 09:21] LABS: Glycohemoglobin (HgbA1c) 5.2 % (4.0-5.6)
[2024-07-13] MEDS: DEXTROSE 50% SYRINGE 25 GRAMS IV (09:29)
--- NOTE | 2024-07-13 09:32 | PTOTSP ---
Addendum entered and electronically signed by ST Harry 07/14/24 11:50:
Full supervision
If increased signs of dysphagia/aspiration observed - please hold PO until re-evaluation.
Original Note:
Dysphagia Eval
Patient with chronic risk factors for dysphagia and aspiration complications (i.e., PMH of CVA, Schizophrenia, cognitive impairment; many missing teeth in poor condition with poor oral hygiene) and now admitted with concern for aspiration PNA.
Recommend:
1. IDDSI Level 6 Soft/Bite Sized, Thin Liquids
2. Supervision and assist as needed
3. Aspiration precautions: upright to 90 degrees, single sips/bites, slow rate, reduce distractions
4. Oral care 3x daily
5. Consider video swallow to objectively assess swallow
[2024-07-13] MEDS: CALCIUM GLUCONATE 100 IV (09:38)
--- NOTE | 2024-07-13 10:00 | PTCARENOTE ---
RN received critical lab value at 0905 today that glucose was 44. RN checked on glucometer and got BS 70. results did not appear in miscellaneous results. notified on lab value and glucometer reading. ordered received
[2024-07-13 10:08] LABS: % Basophils 0.2 % (0-2); % Eosinophils 0.7 % (0-6); % Immature Granulocytes 0.8 % (0-0.5); % Lymphocytes 9.1 % (20.5-51.1); % Monocytes 12.2 % (1.7-9.3); Absolute Eosinophils 0.1 10^3/uL (0-0.7); Absolute Immature Granulocytes 0.1 10^3/uL (0-0.05); Absolute Lymphocytes 0.8 10^3/uL (1.2-3.4); Absolute Neutrophils 6.4 10^3/uL (1.4-6.5); Nucleated Red Blood Cells % 0 % (-)
[2024-07-13] MEDS: HEPARIN 5000 UNITS SC ×2 (10:58→20:29)
[2024-07-13] MEDS: ZYPREXA 20 MG PO (10:59)
[2024-07-13] MEDS: MIRALAX 17 GRAMS PO (10:59)
[2024-07-13] MEDS: SENOKOT 8.6 MG PO ×2 (11:00→20:30)
[2024-07-13] MEDS: ASPIR LOW (ENTERIC COATED) 81 MG PO (11:00)
[2024-07-13] MEDS: DEPAKOTE (12 HR RELEASE) 750 MG PO ×2 (11:00→20:30)
[2024-07-13] MEDS: PACERONE 300 MG PO (11:01)
[2024-07-13] MEDS: PLAVIX 75 MG PO (11:01)
[2024-07-13] MEDS: OSCAL CAL 500 1000 MG PO (11:01)
[2024-07-13] MEDS: COLACE 100 MG PO ×2 (11:01→20:30)
[2024-07-13] MEDS: COGENTIN 1 MG PO (11:04)
[2024-07-13] MEDS: TOPROL XL PO (11:04)
[2024-07-13] MEDS: VITAMIN D3 (cholecalciferol) 25 MCG PO (11:04)
[2024-07-13] MEDS: ZOLOFT 50 MG PO (11:04)
[2024-07-13 11:37] LABS: Glucose - Point of Care 103 mg/dl (70-99)
[2024-07-13] MEDS: MAGNESIUM SULFATE 50 IV (13:04)
--- NOTE | 2024-07-13 14:25 | CON.CAR ---
Addendum entered and electronically signed by Chepe Lord MD 07/13/24 17:04:
I saw and examined the patient.
The Fibre Technologist's note was reviewed and I agree with the note.
Comment:
GEN: No distress, awake
HEENT: supple, anicteric, mmm
LUNGS: bilat rhonchi
CV: Reg, S1/S2, 1/6 syst LSB, no gallop
ABD: soft, BS+, NT/ND
EXT: No edema
NEURO: Gross non-focal
SKIN: No rash
Plan:
63-year-old male with past medical history of schizophrenia, bipolar disorder, paroxysmal atrial fibrillation, cardiomyopathy, chronic heart failure with mildly reduced ejection fraction, peripheral vascular disease presents with confusion, and
shortness of breath with acute on chronic renal failure. CT scan revealed bilateral pneumonia, and proBNP was mildly elevated. We are asked to evaluate him for possible acute heart failure. It is unclear whether he follows with cardiology.
By exam he is not markedly volume overloaded. I suspect he has more chronic heart failure with mildly reduced ejection fraction. I would hold on IV diuresis for now.
Check echocardiogram. Would restart Lasix in a.m. would start 40 mg p.o. daily.
Creatinine is overall improved back down to 1.3.
He currently is on high dose amiodarone. We should decrease this to 200 mg once daily and check a TSH.
Continue Toprol 75 mg daily. He remains in sinus rhythm. It remains unclear why he is not fully anticoagulated. He remains on aspirin and Plavix. We will review his records. We reasonable to consider aspirin and Eliquis if he does not have a
significant bleeding risk.
With his mental status I would continue conservative therapy for him. Would hold off on Farxiga/Jardiance for now.
Would hold on MAGDALENO/ARB/Aldactone for now with recent acute renal failure.
Will follow
Original Note:
Consultation
Consultation Request
Date/Time Consultation Performed: 07/13/24
Requesting Provider: Dr. Lindquist
Performing Provider: Emiliana Monahan PA-C for Dr. Lord
Reason for Consultation: concern for CHF
Medical History
-
Chief Complaint: lethargy
History of Present Illness:
Patient is a 63-year-old male with past medical history of schizophrenia/bipolar disorder who is a long-term resident of [facility] with past medical history of cardiogenic shock with EF of 20% in the setting of prior atrial
fibrillation with rapid ventricular response, with subsequent recovery to EF of 40%, history of stroke, chronic heart failure with reduced EF, history of PRESTON, severe PAD, who presents to [facility] due to lethargy. He was obtunded on arrival, now
somewhat improved. Noted to have evidence of bilateral pneumonia by chest x-ray/CTAP. proBNP 4170. He was noted on arrival to have PRESTON on CKD stage III. Was given a bag of normal saline with improvement in creatinine from 2.5->1.3. He is
chronically on po lasix 20mg daily. Cardiology consulted for assistance with volume mgmt.
PMH:
Chronic HFrEF
Paroxysmal atrial fibrillation/flutter
Cardiomyopathy, ischemic versus nonischemic, possibly tachycardia mediated
Severe peripheral arterial disease
Dry gangrene of toes bilaterally/leg wounds
History of right upper extremity DVT 2018 - was on Eliquis
CKD
CVA
Schizophrenia
Hyponatremia
Anemia
History of ETOH and tobacco abuse
Past Medical History
Past Medical History: Other (in HPI)
Social History
Tobacco: Former Smoker
Alcohol: Former
Living: Long-Term
Employment: Not Employed
Family History
Family History: Unable to Obtain
Allergies / Home Medications
Allergy/AdvReac Type Severity Reaction Status Date / Time
haloperidol Allergy Unknown Verified 07/06/24 02:26
�Medication �Instructions �Recorded �Confirmed �Type
acetaminophen 325 mg tablet 650 mg PO Q4HPRN PRN mild pain, 04/07/19 07/12/24 History
temp>100.4
amiodarone 200 mg tablet (Pacerone) 300 mg PO BID Heart disease 04/07/19 07/12/24 History
aspirin 81 mg tablet,delayed 81 mg PO DAILY Blood clot 04/07/19 07/12/24 History
release prevention/tx
atorvastatin 20 mg tablet 60 mg PO HS High cholesterol 04/07/19 07/12/24 History
benztropine 1 mg tablet 1 mg PO DAILY Neurological 04/07/19 07/12/24 History
Condition
bisacodyl 10 mg rectal suppository 10 mg LA DAILYPRN PRN if no bm 04/07/19 07/12/24 History
(OneLAX Bisacodyl) aftr sorbitol
cholecalciferol (vitamin D3) 25 1,000 units PO DAILY Supplement 04/07/19 07/12/24 History
mcg (1,000 unit) tablet
olanzapine 20 mg tablet 20 mg PO DAILY Mental 04/07/19 07/12/24 History
Health/Anxiety
sennosides 8.6 mg tablet (senna) 1 tab PO BID Constipation 04/07/19 07/12/24 History
sertraline 50 mg tablet 50 mg PO DAILY Mental 04/07/19 07/12/24 History
Health/Anxiety
sorbitol 70 % solution 30 ml PO DAILYPRN PRN constipation 04/07/19 07/12/24 History
furosemide 20 mg tablet 20 mg PO DAILY 05/17/19 07/12/24 Rx
clopidogrel 75 mg tablet 75 mg PO DAILY Blood Clot 01/16/21 07/12/24 History
Prevention/Tx
docusate sodium 100 mg capsule 100 mg PO BID Constipation 01/16/21 07/12/24 History
metoprolol succinate 50 mg 75 mg PO DAILY Heart 01/16/21 07/12/24 History
tablet,extended release 24 hr Disease/Condition
(Toprol XL)
calcium carbonate (Calcium 600) 1,200 mg PO DAILY Supplement 07/12/24 07/12/24 History
divalproex 250 mg tablet,delayed 750 mg PO BID Neurological 07/12/24 07/12/24 History
release (Depakote) Condition
guaifenesin 600 mg tablet, 600 mg PO BIDPRN PRN cough 07/12/24 07/12/24 History
extended release 12 hr
lisinopril 10 mg tablet 15 mg PO DAILY Blood Pressure 07/12/24 07/12/24 History
polyethylene glycol 3350 17 gram 17 g PO DAILY Constipation 07/12/24 07/12/24 History
oral powder packet (Miralax)
sennosides 8.6 mg tablet (senna) 17.2 mg PO DAILYPRN PRN 07/12/24 07/12/24 History
constipation
sodium phosphates 19 gram-7 118 ml LA DAILYPRN PRN if no bm 07/12/24 07/12/24 History
gram/118 mL enema (Fleet Enema) aftr dulcalax
tamsulosin 0.4 mg capsule (Flomax) 0.8 mg PO HS Urinary Issue 07/12/24 07/12/24 History
Review of Systems
-
History Source: Patient
All other systems: Negative unless noted
Physical Exam
Vital Signs
Temp Pulse Resp BP Pulse Ox
98.1 F 56 22 108/86 95
07/13/24 11:00 07/13/24 11:04 07/13/24 11:00 07/13/24 11:01 07/13/24 11:00
Lab Results
07/13/24 06:28
07/13/24 06:28
Troponin I 0.016 ng/ml 07/12/24 14:32
Ogd-Q-Xcodzwdebyj Pept 4170 pg/ml 07/12/24 14:32
Physical Exam
General: No Apparent Distress and Other (disheveled, on supp O2)
HEENT: Normocephalic, Anicteric and Moist Mucous Membranes
Respiratory: Other (decreased BS at bases); Negative Wheezes
Cardiac: S1/S2 and Regular Rhythm
GI: Soft, Non Tender, Non Distended and Normal Bowel Sounds
Musculoskeletal: Clubbing (of B/L toes), No Cyanosis and Edema (trace of B/L LE)
Skin: Warm and Dry
Neuro: Awake, Alert and Oriented (to self. confused)
Impression / Plan
-
Primary Infrastructure Tech: none
Assessment:
Presentation with lethargy
B/L PNA, suspected aspiration
Dysphagia
PRESTON, improving
Elevated LFTs
Recent fall with nasal fracture
Chronic HFrEF
Paroxysmal atrial fibrillation/flutter
Chronic amiodarone therapy
Cardiomyopathy, ischemic versus nonischemic, possibly tachycardia mediated
Severe peripheral arterial disease
Dry gangrene of toes bilaterally/leg wounds
History of right upper extremity DVT 2018 - was on Eliquis
CKD
CVA
Schizophrenia
Hyponatremia
Anemia
History of ETOH and tobacco abuse
ECHO 04/16/19: EF 40%, mildly dilated LV, multiple segmental wall motion abnormalities, MAC, trace MR, aortic sclerosis, normal right heart
ECHO 07/13/24: pending
Plan:
-Patient presented with lethargy and is being treated for B/L PNA noted by CXR and CTAP. Cardiology consulted as there was concern from POA that CHF could be contributing to patient's symptoms. proBNP 4170.
-he is chronically on po lasix 20mg daily as OP. he presented with PRESTON and with IVF administration, Cr improved from 2.5 to 1.3 overnight. does not appear to be grossly volume overloaded and weights trending down from admission if accurate. would
continue to hold lasix/lisinopril and likely resume in AM pending labs, daily weights
-wean supp O2 as able
-given prior CM, check echo, ordered by me. last EF was 40% in 2020 however has been as low as 20% in past.
-has history of PAF. in SB/SR on review of tele/EKG. continue amiodarone, however would consider decreasing dose to 200mg daily. listed as being on 300mg BID. continue OP toprol
-continue asa, plavix for PAD. [id number] score is 4 for CHF, PAD, history of CVA. would consider transition to OAC however is also not ideal candidate with present cognitive impairment, recent fall, anemia. would need to discuss with POA first. was
previously on eliquis for DVT.
Data Reviewed
-
EKG: Tracing Personally Visualized and interpreted
Radiology: Report Reviewed by me
CT Scan: Report Reviewed by me
Medical Tests (Nuc Med, Echo etc): Report Reviewed by me
Labs: Labs Reviewed by me
Old Records: Reviewed
--- NOTE | 2024-07-13 15:32 | CM ---
CM spoke w/ nursing staff at [facility] for PLOF. Initial assessment completed. Patient is a LTC resident at [facility]. Patient is a 63 year male sent for lethargy of unknown time. Patient has a guardian, Yamini Tran.
Per nursing staff, patient primarily mobilizes w/ wheelchair, he is able to self propel. Patient is able to ambulate w/ RW. Patient is assisted w/ showers, requires a lot of cueing and supervision as he is forgetful. Per nursing staff, patient is
not skilled often, maybe 1-2 times a year.
Therapy assessed patient and is recommending skilled rehab at d/c. Referral placed to [facility] in [facility].
PCP: Arnoldo Man
Pharmacy: [facility], [place]
Plan: Return to [facility] w/ skilled rehab
[2024-07-13 16:28] LABS: Glucose - Point of Care 111 mg/dl (70-99)
[2024-07-13] MEDS: FLOMAX PO (20:31)
[2024-07-13 21:45] LABS: Glucose - Point of Care 101 mg/dl (70-99)
[2024-07-14] MEDS: ZOSYN 50 IV ×5 (01:01→23:14)
[2024-07-14 02:58] VITALS: BP 152/68
[2024-07-14 05:51] VITALS: BMI 28.7
[2024-07-14 07:39] LABS: Glucose - Point of Care 74 mg/dl (70-99)
[2024-07-14 08:11] LABS: % Basophils 0.4 % (0-2); % Eosinophils 2.8 % (0-6); % Immature Granulocytes 0.4 % (0-0.5); % Lymphocytes 11.5 % (20.5-51.1); % Monocytes 10.1 % (1.7-9.3); % Neutrophils 74.8 % (42.2-75.2); Absolute Eosinophils 0.2 10^3/uL (0-0.7); Absolute Lymphocytes 0.8 10^3/uL (1.2-3.4); Absolute Monocytes 0.7 10^3/uL (0.1-0.6); Absolute Neutrophils 5.3 10^3/uL (1.4-6.5); Hematocrit 29.5 % (39.0-52.0); Hemoglobin 9.8 g/dL (13.0-18.0); Mean Corp Hgb Conc. 33.2 g/dL (33.0-37.0); Mean Corpuscular Hgb 30.8 pg (27.0-31.0); Mean Corpuscular Volume 92.8 fL (80.0-94.0); Mean Platelet Volume 10.6 fL (7.4-10.4); Nucleated Red Blood Cells % 0 % (-); Platelet Count 152 10^3/uL (130-400); Red Blood Cell Count 3.18 10^6/uL (4.70-6.10); Red Cell Dist. Width 15.5 % (11.5-14.5); White Blood Cell Count 7.1 10^3/uL (4.8-10.8)
[2024-07-14 09:15] LABS: ALT (SGPT) 77 U/L (0-50); AST (SGOT) 75 U/L (17-59); Albumin 2.4 g/dl (3.5-5.0); Alkaline Phosphatase 73 U/L (38-126); Blood Urea Nitrogen 29 mg/dl (9-20); Calcium 8.5 mg/dl (8.4-10.2); Carbon Dioxide 26 mmol/L (22-30); Chloride 109 mmol/L (98-107); Estimated Creatinine Clearance 60 ml/min; Glucose 81 mg/dl (70-99); Magnesium 2.2 mg/dl (1.6-2.3); Sodium 140 mmol/L (135-145); Total Bilirubin 0.6 mg/dl (0.2-1.3); Total Protein 5.3 g/dl (6.3-8.2); eGFR 51.99
--- NOTE | 2024-07-14 09:36 | W.PN.HOSP.TC ---
Today's Communication/Plan
-
Antibiotics. Cardiac adjustments.
Assessment / Plan
Assessment / Plan
Physical exam:
General: Acute on chronically ill
HEENT: Poor dentition. Normocephalic, Atraumatic and dry mucous Membranes
Respiratory: Bilateral rhonchi; Negative Wheezes, Rales
Cardiac: Regular Rhythm and S1/S2
GI: Soft, Nontender and Nondistended
Musculoskeletal: No Clubbing, No Cyanosis and No Edema
Neuro: Awake, Alert and Oriented
Psych: Calm
A/P:
Acute metabolic encephalopathy:
Related to PRESTON and pneumonia
Improving
Discussed with power of finance attorney yesterday
Aspiration pneumonia:
Continue IV antibiotic--> discontinue Rocephin and doxycycline and continue with Zosyn
Monitor clinical course
PRESTON:
Improved with IV hydration
Stopped IV fluid
Avoid nephrotoxic
Monitor renal function
Dysphagia:
Speech therapy recommend to start IDDSI level 6
Unable to do VSE
Elevated LFTs:
Monitor trend
Continue hold statins
Check ultrasound right upper quadrant and unremarkable for acute finding
Recent fall with nasal fracture:
Pain control
PT eval
History of schizophrenia/depression/cognitive impairment/former alcoholic:
On Depakote olanzapine and Zoloft
Obtained twelve-lead EKG
Chronic systolic CHF:
Holding diuretics due to PRESTON and plan to restart tomorrow
On b-blockers
Paroxysmal atrial fibrillation:
Sinus bradycardia on admission EKG
On metoprolol for rate control
On amiodarone for antiarrhythmic-appears to be a high dose and cardiology consulted and decreased doses.
Diabetes mellitus type 2:
Insulin sliding scale
BPH:
Continue
Peripheral vascular disease:
Cardiology recommended anticoagulation and discontinue antiplatelet once they discussed with vascular
DVT prophylaxis:
Heparin SQ for now but might transition to Eliquis as above
CODE STATUS:
Full code
Total time spent on today's encounter was 52 minutes which included time spent in counseling the patient/family regarding diagnosis and treatment plan as listed above, goals of care, and symptom management. Case was discussed with nursing staff,
specialists, and care coordinators/case management. All labs and imaging personally reviewed by me. Remainder the time spent in detailed review of previous records, lab data, imaging, and other medical provider documentation.
Anticipated Discharge: 24 - 48 hours
Subjective/Interval History
-
Date of Service: July 14, 2024
Patient alert but disoriented. Some shortness of breath cough. Afebrile
Objective Data
-
Labs:
Laboratory Results
07/14/24
07:06
WBC 7.1
Hgb 9.8 L
Hct 29.5 L
Plt Count 152
Sodium 140
Potassium 4.0
Chloride 109 H
Carbon Dioxide 26
BUN 29 H
Creatinine 1.5 H
Glucose 81
Calcium 8.5 D
Total Bilirubin 0.6
AST 75 H
ALT 77 H
Alkaline Phosphatase 73
Vital Signs:
Vital Signs
Temp Pulse Resp BP Pulse Ox
98.2 F 59 18 152/68 99
07/14/24 02:58 07/14/24 02:58 07/14/24 02:58 07/14/24 02:58 07/14/24 02:58
I&O
07/13/24 07/14/24 07/15/24
06:59 06:59 06:59
Intake Total 690 / 690
Balance 690 / 690
[2024-07-14 10:22] VITALS: BP 114/57
[2024-07-14] MEDS: DEPAKOTE (12 HR RELEASE) 750 MG PO ×2 (10:25→20:10)
[2024-07-14] MEDS: TOPROL XL 75 MG PO (10:25)
[2024-07-14] MEDS: VITAMIN D3 (cholecalciferol) 25 MCG PO (10:28)
[2024-07-14] MEDS: OSCAL CAL 500 1000 MG PO (10:28)
[2024-07-14] MEDS: SENOKOT 8.6 MG PO ×2 (10:28→20:10)
[2024-07-14] MEDS: COGENTIN 1 MG PO (10:28)
[2024-07-14] MEDS: ZOLOFT 50 MG PO (10:28)
[2024-07-14] MEDS: ZYPREXA 20 MG PO (10:28)
[2024-07-14] MEDS: ASPIR LOW (ENTERIC COATED) 81 MG PO (10:29)
[2024-07-14] MEDS: COLACE 100 MG PO ×2 (10:29→20:10)
[2024-07-14] MEDS: HEPARIN 5000 UNITS SC (10:29)
[2024-07-14] MEDS: MIRALAX 17 GRAMS PO (10:29)
[2024-07-14] MEDS: PLAVIX 75 MG PO (10:29)
[2024-07-14] MEDS: PACERONE 200 MG PO (10:30)
--- NOTE | 2024-07-14 11:30 | W.PN.CARDCBS ---
Addendum entered and electronically signed by Lars Gaxiola MD 07/14/24 13:27:
I saw and examined the patient.
The TRAVEL DIRECTOR or PA's note was reviewed and I agree with the note.
Comment: General: Well developed, well nourished in NAD.
Neck: Supple, no JVD, HJR, carotids +2 B/L, no bruits bilaterally.
Heart: Non displaced PMI, RRR, no murmurs, No S3, S4, no rubs.
Lungs: Scattered rhonchi with poor effort
Extremities: No clubbing, cyanosis or edema bilaterally.
Neuro: Grossly nonfocal, awake, alert and oriented x3.
[place] to be more pneumonia than CHF. Resume p.o. Lasix on 07/15. Plan is to stop Plavix and start Eliquis if okay with vascular surgery and also continue aspirin. Discussed with power of commercial real estate attorney in detail.
Original Note:
Today's Communication / Plan
-
transition to OAC + antiplatelet once discussed with vascular
resume po lasix within 24 hours
will arrange OP cardiac follow up
d/w POA
Impression / Plan
-
Primary Automotive Assembler: none
Assessment:
Presentation with lethargy
B/L PNA, suspected aspiration
Dysphagia
PRESTON, improving
Elevated LFTs
Recent fall with nasal fracture
Chronic HFrEF
Paroxysmal atrial fibrillation/flutter
Chronic amiodarone therapy
Cardiomyopathy, ischemic versus nonischemic, possibly tachycardia mediated
Severe peripheral arterial disease
Dry gangrene of toes bilaterally/leg wounds
History of right upper extremity DVT 2018 - was on Eliquis
CKD
CVA
Schizophrenia
Hyponatremia
Anemia
History of ETOH and tobacco abuse
ECHO 04/16/19: EF 40%, mildly dilated LV, multiple segmental wall motion abnormalities, MAC, trace MR, aortic sclerosis, normal right heart
ECHO 07/13/24: EF 68%, MAC, mild MR, mild with mean gradient 10 mmHg, limited Doppler prevents accurate determination of degree of , mildly dilated aortic root 4.1 cm
Plan:
-Patient presented with lethargy and is being treated for B/L PNA noted by CXR and CTAP. Cardiology consulted as there was concern from POA that CHF could be contributing to patient's symptoms. proBNP 4170.
-he is chronically on po lasix 20mg daily as OP. he presented with PRESTON and with IVF administration, Cr improved from 2.5 to 1.3 overnight. Cr 1.5 on 07/14. will plan to resume po lasix 20mg daily (outpatient dose) within next 24 hours
-wean supp O2 as able
-echo this admission with recovered CM, previously as low as 20% in past, 40% by echo in 2020, now 68%.
-has history of PAF. in SB/SR on review of tele. continue amiodarone at decreased dose of 200mg daily. continue OP toprol
-continue asa, plavix for PAD. [id number] score is 4 for CHF, PAD, history of CVA.
-called and updated POA Wanda via telephone for 6:58. we discussed results of echo as above. she is agreeable to transition patient to OAC. denies significant fall or bleeding history. will discuss regimen with vascular given DAPT is for PAD. he
previously tolerated eliquis in past for DVT, will have CM assess cost to patient.
-d/w nursing
Progress Note - Automotive Assembler
Subjective
Date of Service: July 14, 2024
no complaints. confused but pleasant
Objective
Labs:
07/14/24 07:06
07/14/24 07:06
Labs
Hgb 9.8 g/dL (13.0-18.0) L 07/14/24 07:06
Hct 29.5 % (39.0-52.0) L 07/14/24 07:06
Plt Count 152 10^3/uL (130-400) 07/14/24 07:06
Sodium 140 mmol/L (135-145) 07/14/24 07:06
Potassium 4.0 mmol/L (3.5-5.1) 07/14/24 07:06
BUN 29 mg/dl (9-20) H 07/14/24 07:06
Creatinine 1.5 mg/dL (0.7-1.3) H 07/14/24 07:06
Glucose 81 mg/dl (70-99) 07/14/24 07:06
Troponins
07/12/24
14:32
Troponin I 0.016
Vital Signs and I&O:
Vital Signs
Temp Pulse Resp BP Pulse Ox
98.2 F 58 20 114/57 98
07/14/24 10:22 07/14/24 10:25 07/14/24 10:22 07/14/24 10:25 07/14/24 10:22
Vital Signs
Temp Pulse Resp BP Pulse Ox
98.2 F 58 20 114/57 98
07/14/24 10:22 07/14/24 10:25 07/14/24 10:22 07/14/24 10:25 07/14/24 10:22
Intake & Output
07/12/24 07/13/24 07/14/24 07/15/24
07:59 07:59 07:59 07:59
Intake Total 690 / 690
Balance 690 / 690
Physical Exam
Physical Exam
GEN: No distress, awake, alert, but confused. oriented to self. on supp O2
HEENT: supple, anicteric, mmm, eomi
LUNGS: CTA B/L anterolaterally, no wheezes
CV: Reg, S1/S2, no murmur
ABD: soft, BS+, NT/ND
EXT: No cyanosis, clubbing. trace edema of B/L LE
NEURO: Gross non-focal
SKIN: Warm, pink, dry. No rash
[2024-07-14 12:28] LABS: TSH Reflex To Free T4 1.11 uIU/ml (0.47-4.68)
[2024-07-14 12:39] LABS: Glucose - Point of Care 90 mg/dl (70-99)
[2024-07-14 14:48] VITALS: BP 145/90
--- NOTE | 2024-07-14 15:50 | CM ---
sugar plantation manager reviewed patient's chart and plan is for patient to return to [facility], patient has a guardian, Yamini Tran who should be notified of discharge plans.
Plan; Patient to return to [facility], by ambulance when stable.
Report [phone]
[2024-07-14 17:09] LABS: Glucose - Point of Care 138 mg/dl (70-99)
[2024-07-14 20:03] VITALS: BP 130/65
[2024-07-14] MEDS: ELIQUIS 5 MG PO (20:10)
[2024-07-14] MEDS: FLOMAX PO (20:11)
[2024-07-14 22:01] LABS: Glucose - Point of Care 98 mg/dl (70-99)
[2024-07-14 23:10] VITALS: BP 131/65
[2024-07-15 03:23] VITALS: BP 164/81
[2024-07-15] MEDS: ZOSYN 50 IV ×4 (05:21→23:05)
[2024-07-15 05:46] VITALS: BMI 28.8
[2024-07-15 07:30] VITALS: BP 106/66
[2024-07-15 07:36] LABS: Glucose - Point of Care 118 mg/dl (70-99)
[2024-07-15 08:29] LABS: Hematocrit 29.6 % (39.0-52.0); Hemoglobin 9.8 g/dL (13.0-18.0); Mean Corp Hgb Conc. 33.1 g/dL (33.0-37.0); Mean Corpuscular Hgb 30.7 pg (27.0-31.0); Mean Corpuscular Volume 92.8 fL (80.0-94.0); Mean Platelet Volume 10.4 fL (7.4-10.4); Platelet Count 170 10^3/uL (130-400); Red Blood Cell Count 3.19 10^6/uL (4.70-6.10); Red Cell Dist. Width 15.4 % (11.5-14.5); White Blood Cell Count 7.4 10^3/uL (4.8-10.8)
--- NOTE | 2024-07-15 08:46 | W.PN.HOSP.TC ---
Today's Communication/Plan
-
Antibiotics. Oxygen. Neurology eval
Assessment / Plan
Assessment / Plan
Physical exam:
General: Acute on chronically ill
HEENT: Poor dentition. Normocephalic, Atraumatic and dry mucous Membranes
Respiratory: Bilateral rhonchi; Negative Wheezes, Rales
Cardiac: Regular Rhythm and S1/S2
GI: Soft, Nontender and Nondistended
Musculoskeletal: No Clubbing, No Cyanosis and No Edema
Neuro: Lethargic, generalized weakness, no focality on exam
Psych: Calm
A/P:
Acute metabolic encephalopathy:
Related to PRESTON and pneumonia
He was improving but today mild setback. Will get neurology involvement.
Discussed with power of gluing machine offbearer prior
Aspiration pneumonia:
Continue IV antibiotic--> discontinue Rocephin and doxycycline and continue with Zosyn
Monitor clinical course
Hypoxia:
Continue 4 L of oxygen
Titrate oxygen as able
If not able to titrate by tomorrow will repeat chest x-ray in a.m.
PRESTON:
Improved with IV hydration
Stopped IV fluid
Avoid nephrotoxic
Monitor renal function
Dysphagia:
Speech therapy recommend to start IDDSI level 6
Unable to do VSE
Elevated LFTs:
Monitor trend
Continue hold statins
Check ultrasound right upper quadrant and unremarkable for acute finding
Recent fall with nasal fracture:
Pain control
PT eval
History of schizophrenia/depression/cognitive impairment/former alcoholic:
On Depakote olanzapine and Zoloft
Obtained twelve-lead EKG
Chronic systolic CHF:
Holding diuretics due to PRESTON and plan to restart tomorrow
On b-blockers
Paroxysmal atrial fibrillation:
Sinus bradycardia on admission EKG
On metoprolol for rate control
On amiodarone for antiarrhythmic-appears to be a high dose and cardiology consulted and decreased doses.
Diabetes mellitus type 2:
Insulin sliding scale
BPH:
Continue
Peripheral vascular disease:
Cardiology recommended anticoagulation and discontinue antiplatelet once they discussed with vascular
DVT prophylaxis:
Heparin SQ for now but might transition to Eliquis as above
CODE STATUS:
Full code
Total time spent on today's encounter was 52 minutes which included time spent in counseling the patient/family regarding diagnosis and treatment plan as listed above, goals of care, and symptom management. Case was discussed with nursing staff,
specialists, and care coordinators/case management. All labs and imaging personally reviewed by me. Remainder the time spent in detailed review of previous records, lab data, imaging, and other medical provider documentation.
Anticipated Discharge: > 48 hours
Subjective/Interval History
-
Date of Service: July 15, 2024
Mildly lethargic today. Still on supplemental oxygen. Cough and shortness of breath.
Objective Data
-
Labs:
Laboratory Results
07/15/24
07:36
WBC 7.4
Hgb 9.8 L
Hct 29.6 L
Plt Count 170
Sodium Pending
Potassium Pending
Chloride Pending
Carbon Dioxide Pending
BUN Pending
Creatinine Pending
Glucose Pending
Calcium Pending
Total Bilirubin Pending
AST Pending
ALT Pending
Alkaline Phosphatase Pending
Vital Signs:
Vital Signs
Temp Pulse Resp BP Pulse Ox
98.1 F 56 18 164/81 99
07/15/24 03:23 07/15/24 03:23 07/15/24 03:23 07/15/24 03:23 07/15/24 03:23
I&O
07/14/24 07/15/24 07/16/24
06:59 06:59 06:59
Intake Total 690 / 690 580 / 580
Balance 690 / 690 580 / 580
[2024-07-15 09:01] LABS: % Basophils 0.8 % (0-2); % Eosinophils 3.5 % (0-6); % Immature Granulocytes 0.8 % (0-0.5); % Monocytes 13.7 % (1.7-9.3); % Neutrophils 67.2 % (42.2-75.2); Absolute Basophils 0.1 10^3/uL (0-0.2); Absolute Eosinophils 0.3 10^3/uL (0-0.7); Absolute Immature Granulocytes 0.1 10^3/uL (0-0.05); Nucleated Red Blood Cells % 0 % (-)
[2024-07-15 09:33] LABS: ALT (SGPT) 79 U/L (0-50); AST (SGOT) 83 U/L (17-59); Albumin 2.3 g/dl (3.5-5.0); Alkaline Phosphatase 75 U/L (38-126); Blood Urea Nitrogen 24 mg/dl (9-20); Calcium 8.2 mg/dl (8.4-10.2); Carbon Dioxide 27 mmol/L (22-30); Chloride 106 mmol/L (98-107); Estimated Creatinine Clearance 70 ml/min; Glucose 83 mg/dl (70-99); Potassium 4.1 mmol/L (3.5-5.1); Sodium 139 mmol/L (135-145); Total Bilirubin 0.6 mg/dl (0.2-1.3); Total Protein 5.4 g/dl (6.3-8.2); eGFR > 60.00
[2024-07-15] MEDS: ZYPREXA 20 MG PO (09:41)
[2024-07-15] MEDS: ASPIR LOW (ENTERIC COATED) 81 MG PO (09:41)
[2024-07-15] MEDS: TOPROL XL PO (09:42)
[2024-07-15] MEDS: DEPAKOTE (12 HR RELEASE) 750 MG PO ×2 (09:43→20:19)
[2024-07-15] MEDS: COGENTIN 1 MG PO (09:43)
[2024-07-15] MEDS: MIRALAX 17 GRAMS PO (09:43)
[2024-07-15] MEDS: OSCAL CAL 500 1000 MG PO (09:43)
[2024-07-15] MEDS: ELIQUIS 5 MG PO ×2 (09:43→20:20)
[2024-07-15] MEDS: COLACE 100 MG PO ×2 (09:43→20:20)
[2024-07-15] MEDS: VITAMIN D3 (cholecalciferol) 25 MCG PO (09:44)
[2024-07-15] MEDS: SENOKOT 8.6 MG PO ×2 (09:44→20:20)
[2024-07-15] MEDS: PACERONE 200 MG PO (09:44)
[2024-07-15] MEDS: ZOLOFT 50 MG PO (09:45)
--- NOTE | 2024-07-15 11:21 | CM ---
Patient seen bedside sleeping.
PT recommending skilled rehab
Plan: Patient to return to [facility], by ambulance when stable.
Ambulance transport forms on chart.
[facility]
Report [phone]
[2024-07-15 11:45] VITALS: BP 142/66
[2024-07-15 12:25] LABS: Glucose - Point of Care 98 mg/dl (70-99)
--- NOTE | 2024-07-15 13:11 | CON.NEURO ---
Consultation
Order
Date of Consultation: 07/15/24
Requesting Provider: Yazan Lindquist MD
Reason for Consult: encephalopathy.
Neurology Consultation Note.
HPI: This is a 63-year-old man who presented to [facility] on July 12, 2024 with lethargy and hypoxia.
Mr. Luu was started on Zosyn for bibasilar pneumonia
The patient recently sustained a fall with resultant R nasal bone fracture
EMS VS: 71/50, 61, 91%, FS 113
ER VS: 106/49-76/44, 53, afebrile, 96% on 6 L
EKG: sinus bradycardia, QTc Int : 472 ms
PDMP: none
Labs: Creatinine 2.5/1.3, WBCs 11.1�7.4, SARS-CoV-2�negative, UA�negative, valproic acid�72.5, glucose�123�44, normal ammonia, sodium, TSH.
CT head wo contrast-chronic bilateral basal ganglia infarcts, right nasal bone fracture, moderate atrophy.
MAR: started on Eliquis on 07/14/2024
PMH:PA A-Fib, bipolar disorder, PAD, COPD, DLP, HTN, DM, CKD, h/o DVT, CHF, anemia, BMI 28, vitamin D deficiency, EtOH addiction in remission, nicotine addiction
PSH: Left femoral endarterectomy
SH: Resident at [facility] and [facility] at [place], former smoker,
FH: Not contributory to current presentation.
All: Haloperidol
ROS: unable due to encephalopathy
General: In no acute distress.
Cardio: Regular rate and rhythm without murmur. Extremities are without cyanosis or edema.
Neuro:
Mental status: Lethargic, requires constant tactile stimulation to stay awake. Oriented to name, not location or age. Does not follow requests.
Cranial Nerves: Orthophoric primary gaze. Pupils are equally round and reactive to light. No nystagmus. No facial weakness. Mild dysarthria.
Motor: Drifts both arms to bed plane symmetrically. Lower extremity�withdraws to noxious stimuli within bed plane
Reflexes: 3+ throughout. Negative Antonietta's bilaterally.
Sensory: Does not localize noxious stimuli
Coordination: No tremors myoclonic movements but
Gait: deferred
Assessment and Plan:
I. Multifactorial encephalopathy (infectious, vascular, metabolic, hypoxic)
II. TBI
III.Chronic BL basal ganglia infarcts
IV. PA A-Fib
- Aspiration precautions.
- Avoid hypoxia and cerebral hypoperfusion
- Please check CK
- Start IV thiamine
- Brain MRI without kin
- Will follow
I personally reviewed all radiology and labs along with past medical records pertinent to current medical problems. Total time spent in patient care is 60 minutes.
Thank you for allowing us to participate in the care of this patient. We will continue to follow. Please do not hesitate to contact us with any questions or concerns.
Subjective/Objective
Subjective Data
Date of Service: July 15, 2024
Objective Data
Vital Signs
Temp Pulse Resp BP Pulse Ox
36.4 C 76 18 142/66 96
07/15/24 11:45 07/15/24 11:45 07/15/24 11:45 07/15/24 11:45 07/15/24 11:45
Lab Results
07/15/24 07:36
07/15/24 07:36
Sodium 139 mmol/L (135-145) 07/15/24 07:36
Potassium 4.1 mmol/L (3.5-5.1) 07/15/24 07:36
BUN 24 mg/dl (9-20) H 07/15/24 07:36
Glucose 83 mg/dl (70-99) 07/15/24 07:36
Calcium 8.2 mg/dl (8.4-10.2) L 07/15/24 07:36
Zui-V-Hgrtvqzodht Pept 4170 pg/ml 07/12/24 14:32
LDL Cholesterol, Calc 29.00907 mg/dl 07/13/24 06:28
Ur Buprenorphine Negative (Negative) 07/12/24 14:32
Patient Allergies
haloperidol Allergy (Verified 07/06/24 02:26)
Unknown
Medications
-
Active Medications
Generic Name Dose Route Start Last Admin
Trade Name Freq PRN Reason Stop Dose Admin
Acetaminophen 650 mg 07/12/24 20:50
Acetaminophen 325 Mg Tablet PO 08/09/24 20:49
Q4HPRN PRN
mild pain/[place]/temp> 100.4F
Amiodarone HCl 200 mg 07/14/24 08:00 07/15/24 09:44
Amiodarone 200 Mg Tablet PO 08/11/24 07:59 200 mg
DAILY MILLICENT Administration
Apixaban 5 mg 07/14/24 20:00 07/15/24 09:43
Apixaban (Eliquis) 5 Mg Tablet PO 08/11/24 19:59 5 mg
BID MILLICENT Administration
Aspirin 81 mg 07/13/24 08:00 07/15/24 09:41
Aspirin 81 Mg (Enteric Coated) Tablet PO 08/10/24 07:59 81 mg
DAILY MILLICENT Administration
Benztropine Mesylate 1 mg 07/13/24 08:00 07/15/24 09:43
Benztropine 1 Mg Tablet PO 08/10/24 07:59 1 mg
DAILY MILLICENT Administration
Calcium Carbonate 1,000 mg 07/13/24 08:00 07/15/24 09:43
Calcium Carbonate 500 Mg Tablet PO 08/10/24 07:59 1,000 mg
DAILY MILLICENT Administration
Cholecalciferol 25 mcg 07/13/24 08:00 07/15/24 09:44
Cholecalciferol (Vitamin D3) 25 Mcg Tablet (1,000 Units) PO 08/10/24 07:59 25 mcg
DAILY MILLICENT Administration
Dextrose 12.5 grams 07/12/24 20:50
Dextrose 50% (0.5 Grams/Ml) 50 Ml Syringe IV 08/09/24 20:49
[id number] PRN
hypoglycemia
Protocol
Divalproex Sodium 750 mg 07/12/24 20:50 07/15/24 09:43
Divalproex 250 Mg Delayed Release (12 Hr) Tablet PO 08/09/24 20:49 750 mg
BID MILLICENT Administration
Docusate Sodium 100 mg 07/12/24 20:50 07/15/24 09:43
Docusate Sodium 100 Mg Capsule PO 08/09/24 20:49 100 mg
BID MILLICENT Administration
Glucagon 1 mg 07/12/24 20:50
Glucagon 1 Mg Vial IM 08/09/24 20:49
PRN PRN
hypoglycemia
Protocol
Piperacillin Sod/Tazobactam Sod 3.375 gram in 50 mls @ 100 mls/hr 07/13/24 16:00 07/15/24 12:41
Zosyn IV 50 mls
Q6 MILLICENT Administration
Insulin Aspart 0 units 07/13/24 07:30 07/15/24 12:38
Insulin Aspart Low Resistance 300 Units/3 Ml Pen.Injctr SC 08/10/24 07:29 Not Given
AC MILLICENT
Protocol
Metoprolol Succinate 75 mg 07/13/24 08:00 07/15/24 09:42
Metoprolol 50 Mg Extended Release Tablet PO 08/10/24 07:59 Not Given
DAILY MILLICENT
Olanzapine 20 mg 07/13/24 08:00 07/15/24 09:41
Olanzapine 10 Mg Tablet PO 08/10/24 07:59 20 mg
DAILY MILLICENT Administration
Polyethylene Glycol 17 grams 07/13/24 08:00 07/15/24 09:43
Polyethylene Glycol Powder 17 Grams Packet PO 08/10/24 07:59 17 grams
DAILY MILLICENT Administration
Sennosides 17.2 mg 07/12/24 20:50
Sennosides (Senokot) 8.6 Mg Tablet PO 08/09/24 20:49
DAILYPRN PRN
constipation
Sennosides 8.6 mg 07/12/24 20:50 07/15/24 09:44
Sennosides (Senokot) 8.6 Mg Tablet PO 08/09/24 20:49 8.6 mg
BID MILLICENT Administration
Sertraline HCl 50 mg 07/13/24 08:00 07/15/24 09:45
Sertraline 50 Mg Tablet PO 08/10/24 07:59 50 mg
DAILY MILLICENT Administration
Sodium Chloride 0 flush 07/12/24 21:00
Sodium Chloride 0.9% (Flush) Syringe IV 08/09/24 20:59
PER PROTOCOL MILLICENT
Tamsulosin HCl 0.8 mg 07/12/24 22:00 07/14/24 20:11
Tamsulosin 0.4 Mg Capsule PO 08/09/24 21:59 Not Given
HS MILLICENT
Home Medications
�Medication �Instructions �Recorded
acetaminophen 325 mg tablet 650 mg PO Q4HPRN PRN mild pain, 04/07/19
temp>100.4
amiodarone 200 mg tablet (Pacerone) 300 mg PO BID Heart disease 04/07/19
aspirin 81 mg tablet,delayed 81 mg PO DAILY Blood clot 04/07/19
release prevention/tx
atorvastatin 20 mg tablet 60 mg PO HS High cholesterol 04/07/19
benztropine 1 mg tablet 1 mg PO DAILY Neurological 04/07/19
Condition
bisacodyl 10 mg rectal suppository 10 mg DC DAILYPRN PRN if no bm 04/07/19
(OneLAX Bisacodyl) aftr sorbitol
cholecalciferol (vitamin D3) 25 1,000 units PO DAILY Supplement 04/07/19
mcg (1,000 unit) tablet
olanzapine 20 mg tablet 20 mg PO DAILY Mental 04/07/19
Health/Anxiety
sennosides 8.6 mg tablet (senna) 1 tab PO BID Constipation 04/07/19
sertraline 50 mg tablet 50 mg PO DAILY Mental 04/07/19
Health/Anxiety
sorbitol 70 % solution 30 ml PO DAILYPRN PRN constipation 04/07/19
furosemide 20 mg tablet 20 mg PO DAILY 05/17/19
clopidogrel 75 mg tablet 75 mg PO DAILY Blood Clot 01/16/21
Prevention/Tx
docusate sodium 100 mg capsule 100 mg PO BID Constipation 01/16/21
metoprolol succinate 50 mg 75 mg PO DAILY Heart 01/16/21
tablet,extended release 24 hr Disease/Condition
(Toprol XL)
calcium carbonate (Calcium 600) 1,200 mg PO DAILY Supplement 07/12/24
divalproex 250 mg tablet,delayed 750 mg PO BID Neurological 07/12/24
release (Depakote) Condition
guaifenesin 600 mg tablet, 600 mg PO BIDPRN PRN cough 07/12/24
extended release 12 hr
lisinopril 10 mg tablet 15 mg PO DAILY Blood Pressure 07/12/24
polyethylene glycol 3350 17 gram 17 g PO DAILY Constipation 07/12/24
oral powder packet (Miralax)
sennosides 8.6 mg tablet (senna) 17.2 mg PO DAILYPRN PRN 07/12/24
constipation
sodium phosphates 19 gram-7 118 ml DC DAILYPRN PRN if no bm 07/12/24
gram/118 mL enema (Fleet Enema) aftr dulcalax
tamsulosin 0.4 mg capsule (Flomax) 0.8 mg PO HS Urinary Issue 07/12/24
Vital Signs and Labs
-
Vital Signs and Labs:
Vital Signs
Temp Pulse Resp BP Pulse Ox
36.8 C 54 18 143/69 95
07/15/24 15:24 07/15/24 15:27 07/15/24 15:24 07/15/24 15:27 07/15/24 15:24
Lab Results
07/15/24 07:36
07/15/24 07:36
Sodium 139 mmol/L (135-145) 07/15/24 07:36
Potassium 4.1 mmol/L (3.5-5.1) 07/15/24 07:36
BUN 24 mg/dl (9-20) H 07/15/24 07:36
Glucose 83 mg/dl (70-99) 07/15/24 07:36
Calcium 8.2 mg/dl (8.4-10.2) L 07/15/24 07:36
Dmr-C-Mdqjmipqtwz Pept 4170 pg/ml 07/12/24 14:32
LDL Cholesterol, Calc 29.86434 mg/dl 07/13/24 06:28
Ur Buprenorphine Negative (Negative) 07/12/24 14:32
Medications
-
Medications:
Generic Name Dose Route Start Last Admin
Trade Name Freq PRN Reason Stop Dose Admin
Acetaminophen 650 mg 07/12/24 20:50
Acetaminophen 325 Mg Tablet PO 08/09/24 20:49
Q4HPRN PRN
mild pain/[place]/temp> 100.4F
Amiodarone HCl 200 mg 07/14/24 08:00 07/15/24 09:44
Amiodarone 200 Mg Tablet PO 08/11/24 07:59 200 mg
DAILY MILLIECNT Administration
Apixaban 5 mg 07/14/24 20:00 07/15/24 09:43
Apixaban (Eliquis) 5 Mg Tablet PO 08/11/24 19:59 5 mg
BID MILLICENT Administration
Aspirin 81 mg 07/13/24 08:00 07/15/24 09:41
Aspirin 81 Mg (Enteric Coated) Tablet PO 08/10/24 07:59 81 mg
DAILY MILLICENT Administration
Benztropine Mesylate 1 mg 07/13/24 08:00 07/15/24 09:43
Benztropine 1 Mg Tablet PO 08/10/24 07:59 1 mg
DAILY MILLICENT Administration
Calcium Carbonate 1,000 mg 07/13/24 08:00 07/15/24 09:43
Calcium Carbonate 500 Mg Tablet PO 08/10/24 07:59 1,000 mg
DAILY MILLICENT Administration
Cholecalciferol 25 mcg 07/13/24 08:00 07/15/24 09:44
Cholecalciferol (Vitamin D3) 25 Mcg Tablet (1,000 Units) PO 08/10/24 07:59 25 mcg
DAILY MILLICENT Administration
Dextrose 12.5 grams 07/12/24 20:50
Dextrose 50% (0.5 Grams/Ml) 50 Ml Syringe IV 08/09/24 20:49
[id number] PRN
hypoglycemia
Protocol
Divalproex Sodium 750 mg 07/12/24 20:50 07/15/24 09:43
Divalproex 250 Mg Delayed Release (12 Hr) Tablet PO 08/09/24 20:49 750 mg
BID MILLICENT Administration
Docusate Sodium 100 mg 07/12/24 20:50 07/15/24 09:43
Docusate Sodium 100 Mg Capsule PO 08/09/24 20:49 100 mg
BID MILLICENT Administration
Furosemide 20 mg 07/15/24 15:00 07/15/24 15:27
Furosemide 20 Mg Tablet PO 08/12/24 14:59 20 mg
DAILY MILLICENT Administration
Glucagon 1 mg 07/12/24 20:50
Glucagon 1 Mg Vial IM 08/09/24 20:49
PRN PRN
hypoglycemia
Protocol
Piperacillin Sod/Tazobactam Sod 3.375 gram in 50 mls @ 100 mls/hr 07/13/24 16:00 07/15/24 12:41
Zosyn IV 50 mls
Q6 MILLICENT Administration
Insulin Aspart 0 units 07/13/24 07:30 07/15/24 12:38
Insulin Aspart Low Resistance 300 Units/3 Ml Pen.Injctr SC 08/10/24 07:29 Not Given
AC MILLICENT
Protocol
Metoprolol Succinate 75 mg 07/13/24 08:00 07/15/24 09:42
Metoprolol 50 Mg Extended Release Tablet PO 08/10/24 07:59 Not Given
DAILY MILLICENT
Olanzapine 20 mg 07/13/24 08:00 07/15/24 09:41
Olanzapine 10 Mg Tablet PO 08/10/24 07:59 20 mg
DAILY MILLICENT Administration
Polyethylene Glycol 17 grams 07/13/24 08:00 07/15/24 09:43
Polyethylene Glycol Powder 17 Grams Packet PO 08/10/24 07:59 17 grams
DAILY MILLICENT Administration
Sennosides 17.2 mg 07/12/24 20:50
Sennosides (Senokot) 8.6 Mg Tablet PO 08/09/24 20:49
DAILYPRN PRN
constipation
Sennosides 8.6 mg 07/12/24 20:50 07/15/24 09:44
Sennosides (Senokot) 8.6 Mg Tablet PO 08/09/24 20:49 8.6 mg
BID MILLICENT Administration
Sertraline HCl 50 mg 07/13/24 08:00 07/15/24 09:45
Sertraline 50 Mg Tablet PO 08/10/24 07:59 50 mg
DAILY MILLICENT Administration
Sodium Chloride 0 flush 07/12/24 21:00
Sodium Chloride 0.9% (Flush) Syringe IV 08/09/24 20:59
PER PROTOCOL MILLICENT
Tamsulosin HCl 0.8 mg 07/12/24 22:00 07/14/24 20:11
Tamsulosin 0.4 Mg Capsule PO 08/09/24 21:59 Not Given
HS MILLICENT
Home Medications
-
Home Medications
acetaminophen 325 mg tablet 650 mg PO Q4HPRN PRN mild pain, temp>100.4 04/07/19
amiodarone 200 mg tablet (Pacerone) 300 mg PO BID Heart disease 04/07/19
aspirin 81 mg tablet,delayed release 81 mg PO DAILY Blood clot prevention/tx 04/07/19
atorvastatin 20 mg tablet 60 mg PO HS High cholesterol 04/07/19
benztropine 1 mg tablet 1 mg PO DAILY Neurological Condition 04/07/19
bisacodyl 10 mg rectal suppository (OneLAX Bisacodyl) 10 mg DC DAILYPRN PRN if no bm aftr sorbitol 04/07/19
cholecalciferol (vitamin D3) 25 mcg (1,000 unit) tablet 1,000 units PO DAILY Supplement 04/07/19
olanzapine 20 mg tablet 20 mg PO DAILY Mental Health/Anxiety 04/07/19
sennosides 8.6 mg tablet (senna) 1 tab PO BID Constipation 04/07/19
sertraline 50 mg tablet 50 mg PO DAILY Mental Health/Anxiety 04/07/19
sorbitol 70 % solution 30 ml PO DAILYPRN PRN constipation 04/07/19
furosemide 20 mg tablet 20 mg PO DAILY 05/17/19
clopidogrel 75 mg tablet 75 mg PO DAILY Blood Clot Prevention/Tx 01/16/21
docusate sodium 100 mg capsule 100 mg PO BID Constipation 01/16/21
metoprolol succinate 50 mg tablet,extended release 24 hr (Toprol XL) 75 mg PO DAILY Heart Disease/Condition 01/16/21
calcium carbonate (Calcium 600) 1,200 mg PO DAILY Supplement 07/12/24
divalproex 250 mg tablet,delayed release (Depakote) 750 mg PO BID Neurological Condition 07/12/24
guaifenesin 600 mg tablet, extended release 12 hr 600 mg PO BIDPRN PRN cough 07/12/24
lisinopril 10 mg tablet 15 mg PO DAILY Blood Pressure 07/12/24
polyethylene glycol 3350 17 gram oral powder packet (Miralax) 17 g PO DAILY Constipation 07/12/24
sennosides 8.6 mg tablet (senna) 17.2 mg PO DAILYPRN PRN constipation 07/12/24
sodium phosphates 19 gram-7 gram/118 mL enema (Fleet Enema) 118 ml DC DAILYPRN PRN if no bm aftr dulcalax 07/12/24
tamsulosin 0.4 mg capsule (Flomax) 0.8 mg PO HS Urinary Issue 07/12/24
--- NOTE | 2024-07-15 14:04 | W.PN.CARDCBS ---
Addendum entered and electronically signed by Deja Patel PA-C 07/15/24 17:04:
Correction, the plan is for Eliquis and ASPIRIN.
Addendum entered and electronically signed by Israel Craig MD 07/15/24 16:28:
I saw and examined the patient.
The Medical Office Worker's note was reviewed and I agree with the note.
Comment: Briefly, 63-year-old man past medical history of schizophrenia presenting with lethargy and suspected aspiration pneumonia
Cardiology is consulted for history of heart failure with reduced ejection fraction and atrial fibrillation
Had been receiving IV diuretics here and appears euvolemic on exam
Would transition to oral Lasix
In regards to his atrial fibrillation would continue amiodarone 200 mg daily
Tentative plan for anticoagulation with Eliquis and Plavix as antiplatelet given history of peripheral vascular disease
Stable cardiac status, we will sign off, please recall as needed
Original Note:
Today's Communication / Plan
-
Now on Eliquis and Plavix
Cont amiodarone 200 mg daily, check ECG to eval QTc in AM
Lasix 20 mg PO daily restarted today by me
Impression / Plan
-
Primary Radiation Oncologist: none
Assessment:
Presentation with lethargy
B/L PNA, suspected aspiration
Dysphagia
PRESTON, improving
Elevated LFTs
Recent fall with nasal fracture
Chronic HFrEF
Paroxysmal atrial fibrillation/flutter
Chronic amiodarone therapy
Cardiomyopathy, ischemic versus nonischemic, possibly tachycardia mediated
Severe peripheral arterial disease
Dry gangrene of toes bilaterally/leg wounds
History of right upper extremity DVT 2019 - was on Eliquis
CKD
CVA
Schizophrenia
Hyponatremia
Anemia
History of ETOH and tobacco abuse
ECHO 04/16/19: EF 40%, mildly dilated LV, multiple segmental wall motion abnormalities, MAC, trace MR, aortic sclerosis, normal right heart
ECHO 07/13/24: EF 68%, MAC, mild MR, mild with mean gradient 10 mmHg, limited Doppler prevents accurate determination of degree of , mildly dilated aortic root 4.1 cm
Plan:
-Patient presented with lethargy and is being treated for B/L PNA noted by CXR and CTAP. Cardiology consulted as there was concern from POA that CHF could be contributing to patient's symptoms.
-proBNP 4170 on 07/12/24. Patient was not diuresed this admission due to PRESTON on admission.
-Cre as high as 2.5 on admission and improved to 1.3 on 07/15/24, labs reviewed by me. Patient received 3 L IVFs this admission.
-Outpatient dose of Lasix 20 mg PO daily has been on hold since admission, will resume 07/15/24, orders placed by me.
-he is chronically on po lasix 20mg daily as OP. he presented with PRESTON and with IVF administration, Cr improved from 2.5 to 1.3 overnight. Cr 1.5 on 07/14. will plan to resume po lasix 20mg daily (outpatient dose) within next 24 hours
-Oxygen weaned and now on RA, VS reviewed by me 07/15/24.
-EF 68% by echo 07/13/24. EF previously as low as 20% in past, 40% by echo in 2020.
-Outpatient dose of Toprol XL 75 mg daily has been continued
-Outpatient dose of lisinopril 15 mg daily remains on hold due to PRESTON on admission
-Patient with known paroxysmal Afib. Tele reviewed by me 07/15/24 and remains in SR.
-Outpatient dose of amiodarone 200 mg daily has been continued. QTc 472 ms on ECG 07/12/24, recheck ECG in AM, ordered by me.
-Case reviewed with vascular surgery 07/14/24 and plan made to stop aspirin, but continue Plavix and to add Eliquis 5 mg BID (age 63, Cre 1.3)
-[id number] score is 4 for CHF, PAD, history of CVA.
-Patient has a court-appointed POA named Wanda who was updated re:OAC on 07/14/24.
Progress Note - Radiation Oncologist
Subjective
Date of Service: July 15, 2024
No pain
Objective
Labs:
07/15/24 07:36
07/15/24 07:36
Labs
Hgb 9.8 g/dL (13.0-18.0) L 07/15/24 07:36
Hct 29.6 % (39.0-52.0) L 07/15/24 07:36
Plt Count 170 10^3/uL (130-400) 07/15/24 07:36
Sodium 139 mmol/L (135-145) 07/15/24 07:36
Potassium 4.1 mmol/L (3.5-5.1) 07/15/24 07:36
BUN 24 mg/dl (9-20) H 07/15/24 07:36
Creatinine 1.3 mg/dL (0.7-1.3) 07/15/24 07:36
Glucose 83 mg/dl (70-99) 07/15/24 07:36
Troponins
07/12/24
14:32
Troponin I 0.016
Vital Signs and I&O:
Vital Signs
Temp Pulse Resp BP Pulse Ox
97.6 F 76 18 142/66 96
07/15/24 11:45 07/15/24 11:45 07/15/24 11:45 07/15/24 11:45 07/15/24 11:45
Vital Signs
Temp Pulse Resp BP Pulse Ox
97.6 F 76 18 142/66 96
07/15/24 11:45 07/15/24 11:45 07/15/24 11:45 07/15/24 11:45 07/15/24 11:45
Intake & Output
07/13/24 07/14/24 07/15/24 07/16/24
06:59 06:59 06:59 06:59
Intake Total 690 / 690 580 / 580
Balance 690 / 690 580 / 580
Physical Exam
Physical Exam
GEN: NAD
HEENT: EOMI
LUNGS: RA
CV: SR on tele
ABD: ND
EXT: No edema B/L LE
NEURO: Gross non-focal
SKIN: No rash
[2024-07-15 15:24] VITALS: BP 143/69
[2024-07-15] MEDS: LASIX 20 MG PO (15:27)
--- NOTE | 2024-07-15 16:09 | PTOTSP ---
Dysphagia Therapy
Impression: Suspect acute on chronic oral/pharyngeal dysphagia exacerbated by lethargy and AMS. Concern for aspiration though this cannot be definitively ruled out at the bedside. Video swallow study was unable to be completed this admission due
to patient confusion/agitation.
Given worsened clinical picture today with increased lethargy, consider temporary NPO.
Recommend:
1. NPO
2. Medications via non-oral means if able
3. Oral care 3x daily
4. HOB elevation to at least 30 degrees
5. Dysphagia tx f/u at the acute level to determine if/when appropriate for instrumental swallowing testing and/or diet resumption
[2024-07-15 16:22] LABS: Glucose - Point of Care 72 mg/dl (70-99)
[2024-07-15 16:48] LABS: B.E. 2.9 mmol/L; HCO3 27.1 mmol/L (21-28); O2 Saturation % 99.9 % (94-98); PCO2 39 mmHg (35-48); PO2 134 mmHg (83-108); pH 7.45 (7.35-7.45)
[2024-07-15] MEDS: THIAMINE INJECTION 100 MG IV (17:40)
[2024-07-15 18:42] VITALS: BP 110/60
[2024-07-15] MEDS: FLOMAX PO (20:21)
[2024-07-15 23:31] LABS: Glucose - Point of Care 94 mg/dl (70-99)
[2024-07-15 23:47] VITALS: BP 113/46
[2024-07-16] VITALS (7 sets, daily range): BP systolic 91–163; BP diastolic 55–79; PULSE 54; O2SAT 94; BMI 28.2
[2024-07-16] MEDS: ZOSYN 50 IV ×4 (05:26→23:15)
[2024-07-16 05:44] LABS: Glucose - Point of Care 88 mg/dl (70-99)
[2024-07-16 07:57] LABS: Glucose - Point of Care 63 mg/dl (70-99)
[2024-07-16] MEDS: ZOLOFT 50 MG PO (08:21)
[2024-07-16] MEDS: SENOKOT 8.6 MG PO ×2 (08:21→21:03)
[2024-07-16] MEDS: ASPIR LOW (ENTERIC COATED) 81 MG PO (08:21)
[2024-07-16] MEDS: OSCAL CAL 500 1000 MG PO (08:21)
[2024-07-16] MEDS: DEPAKOTE (12 HR RELEASE) 750 MG PO ×2 (08:21→21:03)
[2024-07-16] MEDS: COLACE 100 MG PO ×2 (08:22→21:04)
[2024-07-16] MEDS: COGENTIN 1 MG PO (08:22)
[2024-07-16] MEDS: ZYPREXA 20 MG PO (08:29)
[2024-07-16] MEDS: PACERONE 200 MG PO (08:32)
[2024-07-16] MEDS: LASIX PO (08:33)
[2024-07-16] MEDS: MIRALAX PO (08:33)
[2024-07-16] MEDS: ELIQUIS 5 MG PO ×2 (08:34→21:03)
[2024-07-16] MEDS: TOPROL XL PO (08:34)
[2024-07-16] MEDS: VITAMIN D3 (cholecalciferol) 25 MCG PO (08:34)
[2024-07-16 08:39] LABS: % Basophils 0.9 % (0-2); % Eosinophils 4.2 % (0-6); % Immature Granulocytes 0.9 % (0-0.5); % Lymphocytes 18.7 % (20.5-51.1); % Monocytes 10.5 % (1.7-9.3); % Neutrophils 64.8 % (42.2-75.2); Absolute Basophils 0.1 10^3/uL (0-0.2); Absolute Eosinophils 0.3 10^3/uL (0-0.7); Absolute Immature Granulocytes 0.1 10^3/uL (0-0.05); Absolute Lymphocytes 1.2 10^3/uL (1.2-3.4); Absolute Monocytes 0.7 10^3/uL (0.1-0.6); Absolute Neutrophils 4.1 10^3/uL (1.4-6.5); Hematocrit 30.1 % (39.0-52.0); Hemoglobin 10.2 g/dL (13.0-18.0); Mean Corp Hgb Conc. 33.9 g/dL (33.0-37.0); Mean Corpuscular Volume 91.5 fL (80.0-94.0); Mean Platelet Volume 10.1 fL (7.4-10.4); Nucleated Red Blood Cells % 0 % (-); Platelet Count 170 10^3/uL (130-400); Red Blood Cell Count 3.29 10^6/uL (4.70-6.10); Red Cell Dist. Width 15.5 % (11.5-14.5); White Blood Cell Count 6.4 10^3/uL (4.8-10.8)
[2024-07-16 08:48] LABS: PT 18.4 Sec (11.4-14.6)
[2024-07-16 08:50] LABS: Ammonia < 9 umol/L (9-30)
[2024-07-16 09:13] LABS: ALT (SGPT) 110 U/L (0-50); AST (SGOT) 131 U/L (17-59); Albumin 2.3 g/dl (3.5-5.0); Alkaline Phosphatase 70 U/L (38-126); Blood Urea Nitrogen 28 mg/dl (9-20); Calcium 8.2 mg/dl (8.4-10.2); Carbon Dioxide 29 mmol/L (22-30); Chloride 106 mmol/L (98-107); Estimated Creatinine Clearance 65 ml/min; Glucose 70 mg/dl (70-99); Potassium 4.3 mmol/L (3.5-5.1); Sodium 141 mmol/L (135-145); Total Bilirubin 0.7 mg/dl (0.2-1.3); Total Protein 5.7 g/dl (6.3-8.2); eGFR 56.48
--- NOTE | 2024-07-16 09:16 | W.PN.HOSP.TC ---
Addendum entered and electronically signed by Yazan Lindquist MD 07/16/24 13:27:
Will get psychiatry on board as well to see if we can adjust psychotropic medications and further evaluation.
Original Note:
Today's Communication/Plan
-
MRI of the brain. Antibiotics. Repeat chest x-ray.
Assessment / Plan
Assessment / Plan
Physical exam:
General: Acute on chronically ill
HEENT: Poor dentition. Normocephalic, Atraumatic and dry mucous Membranes
Respiratory: Bilateral rhonchi; Negative Wheezes, Rales
Cardiac: Regular Rhythm and S1/S2
GI: Soft, Nontender and Nondistended
Musculoskeletal: No Clubbing, No Cyanosis and No Edema
Neuro: Lethargic, generalized weakness, no focality on exam
Psych: Calm
A/P:
Acute metabolic encephalopathy:
[place] to be related to PRESTON and pneumonia but neurology consulted and further workup in progress
Plan for MRI of the brain
Discussed with power of sports attorney prior
Aspiration pneumonia:
Continue IV antibiotic--> IV Zosyn
Monitor clinical course
Repeat chest x-ray today
Hypoxia:
Continue 4 L of oxygen
Titrate oxygen as able
Repeat chest x-ray today
Hypotension:
Blood pressure borderline low but has not been eating and drinking since n.p.o.
Might need to start IV fluids but concerns due to underlying heart failure.
Will also check a cortisol level
PRESTON:
Improved with IV hydration
Stopped IV fluid
Avoid nephrotoxic
Monitor renal function
Dysphagia:
Speech therapy recommend to keep him n.p.o.
Might need to consider NG tube if prolonged n.p.o. status
Unable to do VSE
Elevated LFTs:
Monitor trend
Continue hold statins
Check ultrasound right upper quadrant and unremarkable for acute finding
Recent fall with nasal fracture:
Pain control
PT eval
History of schizophrenia/depression/cognitive impairment/former alcoholic:
On Depakote olanzapine and Zoloft
Obtained twelve-lead EKG
Chronic systolic CHF:
On IV diuresis per cardiology but requires holding due to low blood pressure
On b-blockers
Paroxysmal atrial fibrillation:
Sinus bradycardia on admission EKG
On metoprolol for rate control
On amiodarone for antiarrhythmic-appears to be a high dose and cardiology consulted and decreased doses to 200 mg daily now.
Diabetes mellitus type 2:
Insulin sliding scale
BPH:
Continue
Peripheral vascular disease:
Cardiology recommended anticoagulation and discontinue antiplatelet after discussion with vascular
DVT prophylaxis:
Eliquis
CODE STATUS:
Full code
Total time spent on today's encounter was 52 minutes which included time spent in counseling the patient/family regarding diagnosis and treatment plan as listed above, goals of care, and symptom management. Case was discussed with nursing staff,
specialists, and care coordinators/case management. All labs and imaging personally reviewed by me. Remainder the time spent in detailed review of previous records, lab data, imaging, and other medical provider documentation.
Anticipated Discharge: > 48 hours
Subjective/Interval History
-
Date of Service: July 16, 2024
Patient with cough and shortness of breath. Encephalopathic although appears slightly better today. Afebrile. On supplemental oxygen
Objective Data
-
Labs:
Laboratory Results
07/16/24 07/16/24
08:16 08:17
WBC 6.4
Hgb 10.2 L
Hct 30.1 L
Plt Count 170
PT 18.4 H
INR 1.50
Sodium 141
Potassium 4.3
Chloride 106
Carbon Dioxide 29
BUN 28 H
Creatinine 1.4 H
Glucose 70 Cancelled
Calcium 8.2 L
Total Bilirubin 0.7
AST 131 H
ALT 110 H
Alkaline Phosphatase 70
Vital Signs:
Vital Signs
Temp Pulse Resp BP Pulse Ox
97.7 F 52 18 97/61 94
07/16/24 07:50 07/16/24 08:32 07/16/24 07:50 07/16/24 08:32 07/16/24 07:50
I&O
07/15/24 07/16/24 07/17/24
06:59 06:59 06:59
Intake Total 580 / 580 120 / 120
Balance 580 / 580 120 / 120
[2024-07-16 11:25] LABS: Glucose - Point of Care 88 mg/dl (70-99)
--- NOTE | 2024-07-16 14:24 | CON.MD ---
Consultation - Medical
-
patient seen chart reviewed. discussed with nursing. the patient is a 59 year old male who was seen for many many years at [facility] in the ACT program. this is the highest level of psych support that is offered. he has not been seen there since
march of 2020. he had been living at [facility] and is referred today bc inc lethargy weakness. he fell last week sustaining a fx of his nose. he has many medical issues see med hx below. he was dx with schizoaffective disorder.
current psych meds include zyprexa 20 mg daily cogentin one mg daily depakote 750 mg bid level 72 and zoloft 50 mg daily. the patient is a poor historian. it was hard to understand his speech and he kept nodding off . this consult was ordered to
consider whether some of his psych meds are contributing to lethargy and dx of tme.
past psych hx patient has been admitted to psych in the past but his hx after 2020 is not known. as stated above he had been rx in the ACT program at [facility]. nurse i spoke to is not aware of any recent psych hospitalizations. the patient told me
he was last hosp many years ago.
medical hx patient was a life long smoker as noted by dr chavira in her psych eval recorded in this chart. he was still smoking in the [place] see below recommendations section.. he has hx severe pad. he has hx chf anemia (hgb is 9.6 hx paf on
amiodarone dosage may be in the process of decrease ecg w qtc 472 hx adrenal nodule obesity htn djd dm hx gi bleed constipation bph creatinine had been elevated now improving transaminitis
fh non contributory
substance abuse none
social hx resides at [facility].
mse lethargic speech very garbled. i could not understand him for the most part. unable to assess thought process as he did not say enough. he denied thoughts of self harm. he denied hallucinations. cognition impaired insight judgment lacking.
dx tme secondary to medical illness schizoaffective d/o by history
recommendations the patient has hx of schizoaffective disorder. we do not have a great handle on his recent psych hx. i called his brother at both numbers listed in the chart. the first was disconnected. the second went to a type of busy signal.
i called [facility] and asked to speak to his nurse. they transferred me to his nurse but it was the wrong floor. i did finally talk to someone who knew him. they said he is usually alert and oriented. he has a very good appetite. he wheels himself
around the floor. he does interact. the nurse said he does talk to himself and to ' people' . most of his family are . he used to go out of the bldg and smoke. 'in order to go out and smoke you have to take yourself out down the ramp.'
his smoking privileges were taken away recently bc he couldn't hold a cig safely. she has noted he has recently been more lethargic. in trying to answer the question as to whether his psych meds are contributing to his tme, zyprexa can be sedating.
it is very anticholinergic. cogentin is very anticholinergic. anticholinergic side effects can contribute to cognitive issues dry mouth blurry vision urinary issues constipation. on the other hand cutting back on these meds could lead to
reemergence of psychosis. i think it is more likely that what we are seeing is due to medical illness as he has been taking these medications for some time. we can gingerly try to cut back on them. would cut zyprexa to 15 mg to start. no
cogwheeling. will dc cogentin. i doubt zoloft is causing sedation. re depakote this is an acceptable blood level but sometimes depakote can be very sedating will cut to 500/750 make sure b12 folate tsh vit d have all been measured. will follow
--- NOTE | 2024-07-16 14:33 | W.PN.NEURO.1 ---
Today's Communication / Plan
-
.
Subjective/Objective
Subjective Data
Date of Service: July 16, 2024
Neurology Follow up Note.
Mr. Luu reports no complaints.
PMH:PA A-Fib, bipolar disorder, PAD, COPD, DLP, HTN, DM, CKD, h/o DVT, CHF, anemia, BMI 28, vitamin D deficiency, EtOH addiction in remission, nicotine addiction
PSH: Left femoral endarterectomy
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
FH: Not contributory to current presentation.
All: Haloperidol
ROS: Negative for headache, change in vision strength.
General: In no acute distress.
Cardio: Regular rate and rhythm without murmur. Extremities are without cyanosis or edema.
Neuro:
Mental status: Awake, oriented to self, location, month, year. Impaired attention and preserved comprehension follows simple requests
Cranial Nerves: Orthophoric primary gaze. Pupils are equally round and reactive to light. No nystagmus. No facial weakness. Mild dysarthria.
Motor: All limbs are antigravity symmetrically purposefully.
Reflexes: 3+ throughout. Negative Antonietta's bilaterally.
Coordination: No dysmetria.
Gait: deferred
Assessment and Plan:
I. Multifactorial encephalopathy (infectious, vascular, metabolic, hypoxic), significantly improved
II. TBI
III.Chronic BL basal ganglia infarcts
IV. PA A-Fib
- Aspiration precautions.
- Avoid hypoxia and cerebral hypoperfusion
- Continue thiamine
- Brain MRI without kin
- Will follow
I personally reviewed all radiology and labs along with past medical records pertinent to current medical problems. Total time spent in patient care is 35 minutes.
Thank you for allowing us to participate in the care of this patient. We will continue to follow. Please do not hesitate to contact us with any questions or concerns
Objective Data
Vital Signs
Temp Pulse Resp BP Pulse Ox
36.8 C 50 20 91/69 94
07/16/24 11:28 07/16/24 11:28 07/16/24 11:28 07/16/24 11:28 07/16/24 07:50
Lab Results
07/16/24 08:16
07/16/24 08:17
PT 18.4 Sec (11.4-14.6) H 07/16/24 08:16
INR 1.50 07/16/24 08:16
Sodium 141 mmol/L (135-145) 07/16/24 08:16
Potassium 4.3 mmol/L (3.5-5.1) 07/16/24 08:16
BUN 28 mg/dl (9-20) H 07/16/24 08:16
Glucose Cancelled 07/16/24 08:17
Calcium 8.2 mg/dl (8.4-10.2) L 07/16/24 08:16
Ugw-W-Nrirgphhedi Pept 4170 pg/ml 07/12/24 14:32
LDL Cholesterol, Calc 29.13087 mg/dl 07/13/24 06:28
Ur Buprenorphine Negative (Negative) 07/12/24 14:32
Patient Allergies
haloperidol Allergy (Verified 07/06/24 02:26)
Unknown
--- NOTE | 2024-07-16 16:14 | CM ---
Patient to return to [facility] when stable.
Plan; Patient to return to [facility], by ambulance when stable.
Report [phone]
[2024-07-16 17:11] LABS: Glucose - Point of Care 77 mg/dl (70-99)
[2024-07-16] MEDS: D5/0.9% SODIUM CHLORIDE 1000 IV (18:05)
[2024-07-16] MEDS: FLOMAX 0.8 MG PO (21:03)
[2024-07-16 21:46] LABS: Glucose - Point of Care 74 mg/dl (70-99)
[2024-07-17] VITALS (7 sets, daily range): BP systolic 115–168; BP diastolic 54–83; BMI 27.6
[2024-07-17] MEDS: ZOSYN 50 IV ×2 (05:36→13:27)
[2024-07-17 06:07] LABS: Glucose - Point of Care 77 mg/dl (70-99)
[2024-07-17 07:18] LABS: Glucose - Point of Care 91 mg/dl (70-99)
[2024-07-17] MEDS: MIRALAX 17 GRAMS PO (09:05)
[2024-07-17] MEDS: COLACE 100 MG PO ×2 (09:06→21:00)
[2024-07-17] MEDS: DEPAKOTE (12 HR RELEASE) 750 MG PO (09:06)
[2024-07-17] MEDS: COGENTIN 1 MG PO (09:06)
[2024-07-17] MEDS: ASPIR LOW (ENTERIC COATED) 81 MG PO (09:06)
[2024-07-17] MEDS: SENOKOT 8.6 MG PO ×2 (09:07→21:00)
[2024-07-17] MEDS: ELIQUIS 5 MG PO ×2 (09:07→21:00)
[2024-07-17] MEDS: OSCAL CAL 500 1000 MG PO (09:07)
[2024-07-17] MEDS: PACERONE 200 MG PO (09:07)
[2024-07-17] MEDS: LASIX 20 MG PO (09:07)
[2024-07-17 09:08] LABS: % Basophils 0.9 % (0-2); % Eosinophils 6.3 % (0-6); % Immature Granulocytes 1.5 % (0-0.5); % Lymphocytes 12.6 % (20.5-51.1); % Monocytes 14.7 % (1.7-9.3); Absolute Basophils 0.1 10^3/uL (0-0.2); Absolute Eosinophils 0.4 10^3/uL (0-0.7); Absolute Immature Granulocytes 0.1 10^3/uL (0-0.05); Absolute Lymphocytes 0.7 10^3/uL (1.2-3.4); Absolute Monocytes 0.9 10^3/uL (0.1-0.6); Absolute Neutrophils 3.8 10^3/uL (1.4-6.5); Hematocrit 29.5 % (39.0-52.0); Hemoglobin 10.1 g/dL (13.0-18.0); Mean Corp Hgb Conc. 34.2 g/dL (33.0-37.0); Mean Corpuscular Hgb 31.5 pg (27.0-31.0); Mean Corpuscular Volume 91.9 fL (80.0-94.0); Mean Platelet Volume 10.6 fL (7.4-10.4); Nucleated Red Blood Cells % 0 % (-); Platelet Count 163 10^3/uL (130-400); Red Blood Cell Count 3.21 10^6/uL (4.70-6.10); Red Cell Dist. Width 15.4 % (11.5-14.5); White Blood Cell Count 5.9 10^3/uL (4.8-10.8)
[2024-07-17] MEDS: ZYPREXA 20 MG PO (09:08)
[2024-07-17] MEDS: VITAMIN D3 (cholecalciferol) 25 MCG PO (09:08)
[2024-07-17] MEDS: ZOLOFT 50 MG PO (09:08)
[2024-07-17] MEDS: TOPROL XL 75 MG PO (09:08)
[2024-07-17 09:32] LABS: ALT (SGPT) 126 U/L (0-50); AST (SGOT) 152 U/L (17-59); Albumin 2.2 g/dl (3.5-5.0); Alkaline Phosphatase 63 U/L (38-126); Blood Urea Nitrogen 26 mg/dl (9-20); Calcium 8.1 mg/dl (8.4-10.2); Carbon Dioxide 29 mmol/L (22-30); Chloride 107 mmol/L (98-107); Estimated Creatinine Clearance 70 ml/min; Glucose 73 mg/dl (70-99); Potassium 4.2 mmol/L (3.5-5.1); Sodium 140 mmol/L (135-145); Total Bilirubin 0.7 mg/dl (0.2-1.3); Total Protein 5.4 g/dl (6.3-8.2); eGFR > 60.00
[2024-07-17 09:51] LABS: Vitamin D, 25-OH*** 49.6 ng/mL (30-80)
[2024-07-17 10:04] LABS: Cortisol, Random 13.8 ug/dl; TSH Reflex To Free T4 0.61 uIU/ml (0.47-4.68)
[2024-07-17 11:44] LABS: Folate 7.2 ng/ml (2.76-20)
[2024-07-17 11:50] LABS: Vitamin B12 841 pg/ml (239-931)
--- NOTE | 2024-07-17 12:18 | PTOTSP ---
SPEECH THERAPY FOLLOW UP NOTE:
Patient continues to exhibit clinical signs of oropharyngeal dysphagia, likely ranny-sk-woastew 2/2 encephalopathy, TBI, CVA, cognitive impairment. Patient continues to exhibit signs concerning for aspiration with thin liquids. Given improvement in
mental status (less lethargic per chart review), recommend completion of VSE that was unable to be completed earlier this week for Wednesday 07/19 (given weekend schedule). Given that patient has been NPO for several days and will continue to have to
wait until VSE, would recommend either (1) Safest option for temporary non-oral means for nutrition/hydration vs. (2) trialing cautious modified diet of IDDSI Level 4 Puree, Mildly-thick liquids with strict aspiration precautions and careful
monitoring of respiratory/mental status, until VSE. Discussed with Dr. Lindquist via TT. Defer to MD for decision regarding diet recommendation prior to VSE. ST to continue to follow with additional recommendations following VSE.
RECOMMEND:
1) VSE for Wednesday 07/19 (given weekend schedule)
2) (1) Safest option for NPO/temporary non-oral means for nutrition/hydration vs. (2) trialing cautious modified diet of IDDSI Level 4 Puree, Mildly-thick liquids with strict aspiration precautions and careful monitoring of respiratory/mental
status, until VSE
3) Meds crushed in puree
4) Aggressive oral care QID
5) ST to follow pending VSE results
--- NOTE | 2024-07-17 12:21 | W.PN.UPDATE ---
Addendum entered and electronically signed by Cherie Paul MD 07/17/24 13:09:
b12 folate random cortisol vit d all nl
Original Note:
Update Note
Progress Note Update
patient seen chart reviewed. patient appears a little more alert today. he is hard to understand but still confused. even after talking to nursing at the [facility] i am still not exactly clear as to his baseline. have cut back on depakote and olanzapine
for today. depakote to be 750/500 and will change tomorrow to once daily dosing at hs 1000 mg depakote er which i could not do today as he already had am dose and olanzapine to 15 mg . have dc'ed carolyn bc no cogwheeling. will follow... noted
blood sugar down this am as he was npo bc aspiration and swallowing test to come...it is coming back up at this point as he is receiving iv's
[2024-07-17 12:30] LABS: Glucose - Point of Care 81 mg/dl (70-99)
[2024-07-17] MEDS: D5/0.9% SODIUM CHLORIDE 1000 IV (13:29)
--- NOTE | 2024-07-17 14:45 | W.PN.HOSP.TC ---
Today's Communication/Plan
-
Antibiotics. MRI of the brain.
Assessment / Plan
Assessment / Plan
Physical exam:
General: Acute on chronically ill
HEENT: Poor dentition. Normocephalic, Atraumatic and dry mucous Membranes
Respiratory: Bilateral rhonchi; Negative Wheezes, Rales
Cardiac: Regular Rhythm and S1/S2
GI: Soft, Nontender and Nondistended
Musculoskeletal: No Clubbing, No Cyanosis. Trace Edema
Neuro: Alert, disoriented, generalized weakness, no focality on exam
Psych: Calm
A/P:
Acute metabolic encephalopathy:
[place] to be related to PRESTON and pneumonia but neurology and psychiatry consulted given persistence and further workup in progress
Plan for MRI of the brain
Discussed with power of state's attorney prior
Aspiration pneumonia:
Continue IV antibiotic--> IV Zosyn changed to IV Unasyn
Monitor clinical course
Repeated chest x-ray stable
Hypoxia:
Wean oxygen as able
Hypotension:
Improved
Continue gentle hydration
Cortisol decent levels
PRESTON:
Improved with IV hydration
Stopped IV fluid
Avoid nephrotoxic
Monitor renal function
Dysphagia:
Speech therapy recommend to keep him n.p.o.
Might need to consider NG tube if prolonged n.p.o. status
Plan for VSE on Friday
Elevated LFTs:
Monitor trend
Continue hold statins
Check ultrasound right upper quadrant and unremarkable for acute finding
Recent fall with nasal fracture:
Pain control
PT eval
History of schizophrenia/depression/cognitive impairment/former alcoholic:
On Depakote olanzapine and Zoloft--> psychiatry consulted and adjusting his medications accordingly.
Chronic systolic CHF:
On diuresis but holding due to n.p.o. and hypotension. Will need to use IV Lasix every so often as indicated.
On b-blockers
Paroxysmal atrial fibrillation:
Sinus bradycardia on admission EKG
On metoprolol for rate control
On amiodarone for antiarrhythmic-appears to be a high dose and cardiology consulted and decreased doses to 200 mg daily now.
Diabetes mellitus type 2:
Insulin sliding scale
BPH:
Continue
Peripheral vascular disease:
Cardiology recommended anticoagulation and discontinue antiplatelet after discussion with vascular
DVT prophylaxis:
Eliquis
CODE STATUS:
Full code
Total time spent on today's encounter was 52 minutes which included time spent in counseling the patient/family regarding diagnosis and treatment plan as listed above, goals of care, and symptom management. Case was discussed with nursing staff,
specialists, and care coordinators/case management. All labs and imaging personally reviewed by me. Remainder the time spent in detailed review of previous records, lab data, imaging, and other medical provider documentation.
Anticipated Discharge: > 48 hours
Subjective/Interval History
-
Date of Service: July 17, 2024
Patient still encephalopathic but appears to be more alert today. Also follows some simple commands. Afebrile
Objective Data
-
Labs:
Laboratory Results
07/17/24
08:01
WBC 5.9
Hgb 10.1 L
Hct 29.5 L
Plt Count 163
Sodium 140
Potassium 4.2
Chloride 107
Carbon Dioxide 29
BUN 26 H
Creatinine 1.3
Glucose 73
Calcium 8.1 L
Total Bilirubin 0.7
AST 152 H
ALT 126 H
Alkaline Phosphatase 63
Vital Signs:
Vital Signs
Temp Pulse Resp BP Pulse Ox
97.4 F 78 22 138/60 94
07/17/24 11:30 07/17/24 11:30 07/17/24 11:30 07/17/24 11:30 07/17/24 11:30
I&O
07/16/24 07/17/24 07/18/24
06:59 06:59 06:59
Intake Total 120 / 120
Output Total 280 / 280
Balance 120 / 120 -280 / -280
--- NOTE | 2024-07-17 15:09 | PTCARENOTE ---
Pt unable to tolerate MRI yesterday. IV ativan ordered to be given prior to MRI. Spoke with MRI dept. He will get done tomorrow.
[2024-07-17 17:08] LABS: Glucose - Point of Care 91 mg/dl (70-99)
[2024-07-17] MEDS: DEPAKOTE (12 HR RELEASE) 500 MG PO (21:00)
[2024-07-17] MEDS: FLOMAX 0.8 MG PO (21:00)
[2024-07-17] MEDS: UNASYN IV (21:00)
[2024-07-17 22:00] LABS: Glucose - Point of Care 69 mg/dl (70-99)
[2024-07-18 00:34] LABS: Glucose - Point of Care 79 mg/dl (70-99)
[2024-07-18] MEDS: UNASYN IV ×4 (01:57→20:00)
[2024-07-18] MEDS: D5/0.9% SODIUM CHLORIDE 1000 IV ×2 (01:59→21:34)
[2024-07-18 03:34] VITALS: BP 94/74
[2024-07-18 06:00] VITALS: BMI 27.4
[2024-07-18 07:23] LABS: % Basophils 0.7 % (0-2); % Eosinophils 5.5 % (0-6); % Immature Granulocytes 1.8 % (0-0.5); % Lymphocytes 13.1 % (20.5-51.1); % Monocytes 14.6 % (1.7-9.3); % Neutrophils 64.3 % (42.2-75.2); Absolute Eosinophils 0.3 10^3/uL (0-0.7); Absolute Immature Granulocytes 0.1 10^3/uL (0-0.05); Absolute Lymphocytes 0.8 10^3/uL (1.2-3.4); Absolute Monocytes 0.9 10^3/uL (0.1-0.6); Absolute Neutrophils 3.9 10^3/uL (1.4-6.5); Hematocrit 29.7 % (39.0-52.0); Mean Corp Hgb Conc. 33.7 g/dL (33.0-37.0); Mean Corpuscular Hgb 31.3 pg (27.0-31.0); Mean Corpuscular Volume 92.8 fL (80.0-94.0); Mean Platelet Volume 10.4 fL (7.4-10.4); Nucleated Red Blood Cells % 0 % (-); Platelet Count 160 10^3/uL (130-400); Red Cell Dist. Width 15.4 % (11.5-14.5)
[2024-07-18 07:29] LABS: Glucose - Point of Care 66 mg/dl (70-99)
[2024-07-18 07:30] VITALS: BP 145/86
[2024-07-18] MEDS: MIRALAX PO (07:30)
[2024-07-18 07:47] LABS: Glucose - Point of Care 69 mg/dl (70-99)
[2024-07-18 07:47] LABS: ALT (SGPT) 183 U/L (0-50); AST (SGOT) 253 U/L (17-59); Albumin 2.2 g/dl (3.5-5.0); Alkaline Phosphatase 72 U/L (38-126); Blood Urea Nitrogen 22 mg/dl (9-20); Calcium 8.4 mg/dl (8.4-10.2); Carbon Dioxide 33 mmol/L (22-30); Chloride 106 mmol/L (98-107); Estimated Creatinine Clearance 70 ml/min; Glucose 84 mg/dl (70-99); Potassium 4.1 mmol/L (3.5-5.1); Sodium 141 mmol/L (135-145); Total Bilirubin 0.5 mg/dl (0.2-1.3); Total Protein 5.7 g/dl (6.3-8.2); eGFR > 60.00
[2024-07-18] MEDS: DEXTROSE 50% SYRINGE 12.5 GRAMS IV ×3 (07:50→20:01)
[2024-07-18 08:22] LABS: Glucose - Point of Care 120 mg/dl (70-99)
[2024-07-18] MEDS: ELIQUIS 5 MG PO (08:48)
[2024-07-18] MEDS: PACERONE 200 MG PO (08:48)
[2024-07-18] MEDS: ZYPREXA 15 MG PO (08:48)
[2024-07-18] MEDS: ASPIR LOW (ENTERIC COATED) 81 MG PO (08:48)
[2024-07-18] MEDS: VITAMIN D3 (cholecalciferol) 25 MCG PO (08:49)
[2024-07-18] MEDS: TOPROL XL PO (08:49)
[2024-07-18] MEDS: SENOKOT 8.6 MG PO ×2 (08:49→20:00)
[2024-07-18] MEDS: COLACE 100 MG PO ×2 (08:49→19:59)
[2024-07-18] MEDS: LASIX 20 MG PO (08:49)
[2024-07-18] MEDS: ZOLOFT 50 MG PO (08:49)
--- NOTE | 2024-07-18 09:13 | W.PN.HOSP.TC ---
Today's Communication/Plan
-
Brain MRI. VSE. Antibiotics
Assessment / Plan
Assessment / Plan
Physical exam:
General: Acute on chronically ill
HEENT: Poor dentition. Normocephalic, Atraumatic and dry mucous Membranes
Respiratory: Bilateral rhonchi; Negative Wheezes, Rales
Cardiac: Regular Rhythm and S1/S2
GI: Soft, Nontender and Nondistended
Musculoskeletal: No Clubbing, No Cyanosis. Trace Edema
Neuro: Alert, disoriented, generalized weakness, no focality on exam
Psych: Calm
A/P:
Acute metabolic encephalopathy:
[place] to be related to PRESTON and pneumonia but neurology and psychiatry consulted given persistence and further workup in progress
Plan for MRI of the brain
Discussed with power of erisa attorney prior
Aspiration pneumonia:
Continue IV antibiotic--> IV Zosyn changed to IV Unasyn
Monitor clinical course
Repeated chest x-ray stable
Hypoxia:
Wean oxygen as able
Hypotension:
Improved
Continue gentle hydration
Cortisol decent levels
PRESTON:
Improved with IV hydration
Stopped IV fluid
Avoid nephrotoxic
Monitor renal function
Dysphagia:
Speech therapy recommend to keep him n.p.o.
Might need to consider NG tube if prolonged n.p.o. status
Plan for VSE on Friday
Elevated LFTs:
Monitor trend
Continue hold statins
Check ultrasound right upper quadrant and unremarkable for acute finding
Recent fall with nasal fracture:
Pain control
PT eval
History of schizophrenia/depression/cognitive impairment/former alcoholic:
On Depakote olanzapine and Zoloft--> psychiatry consulted and adjusting his medications accordingly.
Chronic systolic CHF:
On diuresis but holding due to n.p.o. and hypotension. Will need to use IV Lasix every so often as indicated.
On b-blockers
Paroxysmal atrial fibrillation:
Sinus bradycardia on admission EKG
On metoprolol for rate control
On amiodarone for antiarrhythmic-appears to be a high dose and cardiology consulted and decreased doses to 200 mg daily now.
Diabetes mellitus type 2:
Insulin sliding scale
BPH:
Continue
Peripheral vascular disease:
Cardiology recommended anticoagulation and discontinue antiplatelet after discussion with vascular
DVT prophylaxis:
Eliquis
CODE STATUS:
Full code
Total time spent on today's encounter was 52 minutes which included time spent in counseling the patient/family regarding diagnosis and treatment plan as listed above, goals of care, and symptom management. Case was discussed with nursing staff,
specialists, and care coordinators/case management. All labs and imaging personally reviewed by me. Remainder the time spent in detailed review of previous records, lab data, imaging, and other medical provider documentation.
Anticipated Discharge: 24 - 48 hours
Subjective/Interval History
-
Date of Service: July 18, 2024
Patient more alert today but still disoriented. Denies shortness of breath. On room air today as well. Afebrile
Objective Data
-
Labs:
Laboratory Results
07/18/24
06:34
WBC 6.0
Hgb 10.0 L
Hct 29.7 L
Plt Count 160
Sodium 141
Potassium 4.1
Chloride 106
Carbon Dioxide 33 H
BUN 22 H
Creatinine 1.3
Glucose 84
Calcium 8.4
Total Bilirubin 0.5
AST 253 H
ALT 183 H
Alkaline Phosphatase 72
Vital Signs:
Vital Signs
Temp Pulse Resp BP Pulse Ox
97.8 F 53 20 94/74 96
07/18/24 03:34 07/18/24 08:49 07/18/24 03:34 07/18/24 03:34 07/18/24 03:34
I&O
07/17/24 07/18/24 07/19/24
06:59 06:59 06:59
Intake Total 2450 / 2450
Output Total 280 / 280 400 / 400
Balance -280 / -280 2049
[2024-07-18 10:35] LABS: Glucose - Point of Care 76 mg/dl (70-99)
[2024-07-18] MEDS: OSCAL CAL 500 1000 MG PO (11:16)
[2024-07-18 11:54] LABS: Glucose - Point of Care 77 mg/dl (70-99)
--- NOTE | 2024-07-18 11:56 | W.PN.UPDATE ---
Update Note
Progress Note Update
patient seen chart reviewed. discussed with nursing and with dr tello via tiger text. the patient is more alert today. his speech is also more intelligible . he would like to go home. reassured him that we would like to be able to dc him as soon
as possible but we also want him to be truly medically cleared. there are still issues with swallowing and hopefully swallowing studies will be done soon. he also is to have an mri of the brain. patient seems a bit better with the decrease in his
psych meds which i explained to him again. will follow
[2024-07-18 12:56] VITALS: BP 142/76
[2024-07-18 15:00] VITALS: BP 148/80
--- NOTE | 2024-07-18 16:41 | W.PN.NEURO.1 ---
Today's Communication / Plan
-
.
Subjective/Objective
Subjective Data
Date of Service: July 18, 2024
Neurology Follow up Note.
24-hour events: Transiently hypotensive down to 94/72, afebrile, saturating well on room air.
Olanzapine was reduced to 15 from 20. Switched from Zosyn to Unasyn.
PMH:BEATRIZ Levy, bipolar disorder, PAD, COPD, DLP, HTN, DM, CKD, h/o DVT, CHF, anemia, BMI 28, vitamin D deficiency, EtOH addiction in remission, nicotine addiction
PSH: Left femoral endarterectomy
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
FH: Not contributory to current presentation.
All: Haloperidol
ROS: Negative for headache, change in vision strength.
General: In no acute distress.
Cardio: Regular rate and rhythm without murmur. Extremities are without cyanosis or edema.
Neuro:
Mental status: Lethargic, requires verbal and tactile stimulation to stay awake. Follows simple requests.
Cranial Nerves: Orthophoric primary gaze. Pupils are equally round and reactive to light. No nystagmus. No facial weakness.
Motor: All limbs are antigravity symmetrically purposefully.
Reflexes: 3+ throughout. Negative Antonietta's bilaterally.
Coordination: No dysmetria.
Gait: deferred
Assessment and Plan:
I. Multifactorial encephalopathy (infectious, vascular, metabolic, hypoxic).
II. TBI
III.Chronic BL basal ganglia infarcts
IV. BEATRIZ Levy
- Aspiration precautions.
- Avoid cerebral hypoperfusion
- Continue thiamine
- Hold Eliquis until brain MRI is done
- Brain MRI without kin
- Will follow
I personally reviewed all radiology and labs along with past medical records pertinent to current medical problems. Total time spent in patient care is 35 minutes.
Thank you for allowing us to participate in the care of this patient. We will continue to follow. Please do not hesitate to contact us with any questions or concerns
Objective Data
Vital Signs
Temp Pulse Resp BP Pulse Ox
36.5 C 68 18 142/76 96
07/18/24 12:56 07/18/24 12:56 07/18/24 12:56 07/18/24 12:56 07/18/24 12:56
Lab Results
07/18/24 06:34
07/18/24 06:34
PT 18.4 Sec (11.4-14.6) H 07/16/24 08:16
INR 1.50 07/16/24 08:16
Sodium 141 mmol/L (135-145) 07/18/24 06:34
Potassium 4.1 mmol/L (3.5-5.1) 07/18/24 06:34
BUN 22 mg/dl (9-20) H 07/18/24 06:34
Glucose 84 mg/dl (70-99) 07/18/24 06:34
Calcium 8.4 mg/dl (8.4-10.2) 07/18/24 06:34
Lun-N-Cjpbludjcdg Pept 4170 pg/ml 07/12/24 14:32
LDL Cholesterol, Calc 29.22728 mg/dl 07/13/24 06:28
Vitamin B12 841 pg/ml (239-931) 07/17/24 08:01
Ur Buprenorphine Negative (Negative) 07/12/24 14:32
Patient Allergies
haloperidol Allergy (Verified 07/06/24 02:26)
Unknown
Vital Signs and Labs
-
Vital Signs and Labs:
Vital Signs
Temp Pulse Resp BP Pulse Ox
36.5 C 68 18 142/76 96
07/18/24 12:56 07/18/24 12:56 07/18/24 12:56 07/18/24 12:56 07/18/24 12:56
Lab Results
07/18/24 06:34
07/18/24 06:34
PT 18.4 Sec (11.4-14.6) H 07/16/24 08:16
INR 1.50 07/16/24 08:16
Sodium 141 mmol/L (135-145) 07/18/24 06:34
Potassium 4.1 mmol/L (3.5-5.1) 07/18/24 06:34
BUN 22 mg/dl (9-20) H 07/18/24 06:34
Glucose 84 mg/dl (70-99) 07/18/24 06:34
Calcium 8.4 mg/dl (8.4-10.2) 07/18/24 06:34
Llq-F-Xzyktjodwtw Pept 4170 pg/ml 07/12/24 14:32
LDL Cholesterol, Calc 29.49790 mg/dl 07/13/24 06:28
Vitamin B12 841 pg/ml (239-931) 07/17/24 08:01
Ur Buprenorphine Negative (Negative) 07/12/24 14:32
Medications
-
Medications:
Generic Name Dose Route Start Last Admin
Trade Name Freq PRN Reason Stop Dose Admin
Acetaminophen 650 mg 07/12/24 20:50
Acetaminophen 325 Mg Tablet PO 08/09/24 20:49
Q4HPRN PRN
mild pain/[place]/temp> 100.4F
Amiodarone HCl 200 mg 07/14/24 08:00 07/18/24 08:48
Amiodarone 200 Mg Tablet PO 08/11/24 07:59 200 mg
DAILY MILLICENT Administration
Apixaban 5 mg 07/14/24 20:00 07/18/24 08:48
Apixaban (Eliquis) 5 Mg Tablet PO 08/11/24 19:59 5 mg
BID MILLICENT Administration
Aspirin 81 mg 07/13/24 08:00 07/18/24 08:48
Aspirin 81 Mg (Enteric Coated) Tablet PO 08/10/24 07:59 81 mg
DAILY MILLICENT Administration
Calcium Carbonate 1,000 mg 07/13/24 08:00 07/18/24 11:16
Calcium Carbonate 500 Mg Tablet PO 08/10/24 07:59 1,000 mg
DAILY MILLICENT Administration
Cholecalciferol 25 mcg 07/13/24 08:00 07/18/24 08:49
Cholecalciferol (Vitamin D3) 25 Mcg Tablet (1,000 Units) PO 08/10/24 07:59 25 mcg
DAILY MILLICENT Administration
Dextrose 12.5 grams 07/12/24 20:50 07/18/24 07:50
Dextrose 50% (0.5 Grams/Ml) 50 Ml Syringe IV 08/09/24 20:49 12.5 grams
[id number] PRN Administration
hypoglycemia
Protocol
Divalproex Sodium 500 mg 07/17/24 22:00 07/17/24 21:00
Divalproex 500 Mg Delayed Release (12 Hr) Tablet PO 08/14/24 21:59 500 mg
HS MILLICENT Administration
Divalproex Sodium 1,000 mg 07/18/24 22:00
Divalproex 500 Mg Extended Release (24 Hr) Tablet PO 08/15/24 21:59
HS MILLICENT
Docusate Sodium 100 mg 07/12/24 20:50 07/18/24 08:49
Docusate Sodium 100 Mg Capsule PO 08/09/24 20:49 100 mg
BID MILLICENT Administration
Furosemide 20 mg 07/15/24 15:00 07/18/24 08:49
Furosemide 20 Mg Tablet PO 08/12/24 14:59 20 mg
DAILY MILLICENT Administration
Glucagon 1 mg 07/12/24 20:50
Glucagon 1 Mg Vial IM 08/09/24 20:49
PRN PRN
hypoglycemia
Protocol
Dextrose/Sodium Chloride 1,000 mls @ 65 mls/hr 07/16/24 16:00 07/18/24 01:59
D5/0.9% Sodium Chloride IV 1,000 mls
[id number] MILLICENT Administration
Ampicillin Sodium/Sulbactam 120 mls @ 240 mls/hr 07/17/24 20:00 07/18/24 13:25
Sodium 3 gm/ Sodium Chloride IV 120 mls
Q6H MILLICENT Administration
Insulin Aspart 0 units 07/16/24 00:00 07/18/24 11:19
Insulin Aspart Low Resistance 300 Units/3 Ml Pen.Injctr SC 08/13/24 00:00 Not Given
Q6 MILLICENT
Protocol
Metoprolol Succinate 75 mg 07/13/24 08:00 07/18/24 08:49
Metoprolol 50 Mg Extended Release Tablet PO 08/10/24 07:59 Not Given
DAILY MILLICENT
Olanzapine 15 mg 07/18/24 08:00 07/18/24 08:48
Olanzapine 5 Mg Tablet PO 08/15/24 07:59 15 mg
DAILY MILLICENT Administration
Polyethylene Glycol 17 grams 07/13/24 08:00 07/18/24 07:30
Polyethylene Glycol Powder 17 Grams Packet PO 08/10/24 07:59 Not Given
DAILY MILLICENT
Sennosides 17.2 mg 07/12/24 20:50
Sennosides (Senokot) 8.6 Mg Tablet PO 08/09/24 20:49
DAILYPRN PRN
constipation
Sennosides 8.6 mg 07/12/24 20:50 07/18/24 08:49
Sennosides (Senokot) 8.6 Mg Tablet PO 08/09/24 20:49 8.6 mg
BID MILLICENT Administration
Sertraline HCl 50 mg 07/13/24 08:00 07/18/24 08:49
Sertraline 50 Mg Tablet PO 08/10/24 07:59 50 mg
DAILY MILLICENT Administration
Sodium Chloride 0 flush 07/12/24 21:00
Sodium Chloride 0.9% (Flush) Syringe IV 08/09/24 20:59
PER PROTOCOL MILLICENT
Tamsulosin HCl 0.8 mg 07/12/24 22:00 07/17/24 21:00
Tamsulosin 0.4 Mg Capsule PO 08/09/24 21:59 0.8 mg
HS MILLICENT Administration
Home Medications
-
Home Medications
acetaminophen 325 mg tablet 650 mg PO Q4HPRN PRN mild pain, temp>100.4 04/07/19
amiodarone 200 mg tablet (Pacerone) 300 mg PO BID Heart disease 04/07/19
aspirin 81 mg tablet,delayed release 81 mg PO DAILY Blood clot prevention/tx 04/07/19
atorvastatin 20 mg tablet 60 mg PO HS High cholesterol 04/07/19
benztropine 1 mg tablet 1 mg PO DAILY Neurological Condition 04/07/19
bisacodyl 10 mg rectal suppository (OneLAX Bisacodyl) 10 mg NC DAILYPRN PRN if no bm aftr sorbitol 04/07/19
cholecalciferol (vitamin D3) 25 mcg (1,000 unit) tablet 1,000 units PO DAILY Supplement 04/07/19
olanzapine 20 mg tablet 20 mg PO DAILY Mental Health/Anxiety 04/07/19
sennosides 8.6 mg tablet (senna) 1 tab PO BID Constipation 04/07/19
sertraline 50 mg tablet 50 mg PO DAILY Mental Health/Anxiety 04/07/19
sorbitol 70 % solution 30 ml PO DAILYPRN PRN constipation 04/07/19
furosemide 20 mg tablet 20 mg PO DAILY 05/17/19
clopidogrel 75 mg tablet 75 mg PO DAILY Blood Clot Prevention/Tx 01/16/21
docusate sodium 100 mg capsule 100 mg PO BID Constipation 01/16/21
metoprolol succinate 50 mg tablet,extended release 24 hr (Toprol XL) 75 mg PO DAILY Heart Disease/Condition 01/16/21
calcium carbonate (Calcium 600) 1,200 mg PO DAILY Supplement 07/12/24
divalproex 250 mg tablet,delayed release (Depakote) 750 mg PO BID Neurological Condition 07/12/24
guaifenesin 600 mg tablet, extended release 12 hr 600 mg PO BIDPRN PRN cough 07/12/24
lisinopril 10 mg tablet 15 mg PO DAILY Blood Pressure 07/12/24
polyethylene glycol 3350 17 gram oral powder packet (Miralax) 17 g PO DAILY Constipation 07/12/24
sennosides 8.6 mg tablet (senna) 17.2 mg PO DAILYPRN PRN constipation 07/12/24
sodium phosphates 19 gram-7 gram/118 mL enema (Fleet Enema) 118 ml NC DAILYPRN PRN if no bm aftr dulcalax 07/12/24
tamsulosin 0.4 mg capsule (Flomax) 0.8 mg PO HS Urinary Issue 07/12/24
[2024-07-18 17:19] LABS: Glucose - Point of Care 59 mg/dl (70-99)
[2024-07-18 17:46] LABS: Glucose - Point of Care 131 mg/dl (70-99)
[2024-07-18 19:37] VITALS: BP 117/98
[2024-07-18 19:47] LABS: Glucose - Point of Care 67 mg/dl (70-99)
[2024-07-18 20:29] LABS: Glucose - Point of Care 121 mg/dl (70-99)
[2024-07-18] MEDS: FLOMAX 0.8 MG PO (21:35)
[2024-07-18 21:45] LABS: Glucose - Point of Care 86 mg/dl (70-99)
[2024-07-18] MEDS: DEPAKOTE (12 HR RELEASE) 500 MG PO (22:06)
[2024-07-18] MEDS: DEPAKOTE (12 HR RELEASE) 1000 MG PO (22:06)
[2024-07-18 23:10] VITALS: BP 111/89
[2024-07-19] MEDS: UNASYN IV ×4 (01:44→20:04)
[2024-07-19 03:33] LABS: Glucose - Point of Care 87 mg/dl (70-99)
[2024-07-19 03:38] VITALS: BP 112/68
[2024-07-19 05:42] LABS: Glucose - Point of Care 92 mg/dl (70-99)
[2024-07-19 06:00] VITALS: BMI 27.7
[2024-07-19 07:39] VITALS: BP 149/71
[2024-07-19] MEDS: COLACE 100 MG PO ×2 (08:10→20:03)
[2024-07-19] MEDS: VITAMIN D3 (cholecalciferol) 25 MCG PO (08:10)
[2024-07-19] MEDS: LASIX 20 MG PO (08:10)
[2024-07-19] MEDS: SENOKOT 8.6 MG PO ×2 (08:10→20:03)
[2024-07-19] MEDS: ASPIR LOW (ENTERIC COATED) 81 MG PO (08:10)
[2024-07-19] MEDS: ZOLOFT 50 MG PO (08:10)
[2024-07-19] MEDS: PACERONE 200 MG PO (08:10)
[2024-07-19] MEDS: ZYPREXA 15 MG PO (08:10)
[2024-07-19] MEDS: OSCAL CAL 500 1000 MG PO (08:10)
[2024-07-19] MEDS: TOPROL XL PO (08:10)
[2024-07-19] MEDS: MIRALAX PO (08:11)
--- NOTE | 2024-07-19 09:24 | W.PN.NEURO.1 ---
Documented by User: Cara Castillo NP 07/19/24 11:04
Today's Communication / Plan
-
.
Neuro Assessment/Plan
Assessment
63-year-old male with a PMH of paroxysmal Afib, bipolar disorder, schizophrenia, former alcohol, PAD, COPD, HTN, HLD, DM, CKD, h/o DVT presented to on 07/12/24 with report of a one week history of increasing weakness, lethargy, and a fall with
nose fracture.
CT Head 07/18/24: Moderate diffuse cerebral and cerebellar volume loss. 2.1 cm chronic infarct in the right basal ganglia and right caudate nucleus. Mild white matter leukoaraiosis in both cerebral hemispheres. Severe calcific atherosclerotic plaque
in the anterior intracranial circulation. 2.1 cm crescent-shaped region of high attenuation in the subcutaneous fat of the scalp posterior to the left parietal bone. Diagnostic possibilities are (1) an acute scalp soft tissue hematoma, (2) scarring
from previous traumatic injury, or (3) a soft tissue tumor (skin cancer).
Valproic acid level 07/12/24: 72.5
I. Multifactorial encephalopathy (infectious, vascular, metabolic, hypoxic).
II. TBI
III.Chronic BL basal ganglia infarcts
IV. PA A-Fib
Plan
-Okay to continue apixaban for stroke prevention now. Addition of antiplatelet medication per Cardiology/Vascular Surgery, no role for this from a Neurological standpoint.
-MRI brain noncontrast, MRA head/neck pending.
-Continue home valproic acid dosing/per psych recommendations.
-Goal normotension.
-Continue thiamine 100mg PO daily.
-LDL goal <70. LDL is 29. Atorvastatin 60mg daily is on hold due to elevated LFTs, restart when cleared by primary team.
-Goal normoglycemia, hbA1c is 5.2.
-Neurological checks per unit guidelines.
-Provide patient with a stroke education packet.
-PT/OT/ST. VSE pending.
-DVT prophylaxis.
-Will follow pending results.
Subjective/Objective
Subjective Data
Date of Service: July 19, 2024
No acute events overnight. Review of systems is limited due to confused, distracted conversation. Denies any headache.
Objective Data
Vital Signs
Temp Pulse Resp BP Pulse Ox
98.1 F 56 20 149/71 97
07/19/24 07:39 07/19/24 08:10 07/19/24 07:39 07/19/24 07:39 07/19/24 07:39
PT 18.4 Sec (11.4-14.6) H 07/16/24 08:16
INR 1.50 07/16/24 08:16
Sodium 141 mmol/L (135-145) 07/18/24 06:34
Potassium 4.1 mmol/L (3.5-5.1) 07/18/24 06:34
BUN 22 mg/dl (9-20) H 07/18/24 06:34
Glucose 84 mg/dl (70-99) 07/18/24 06:34
Calcium 8.4 mg/dl (8.4-10.2) 07/18/24 06:34
Fpo-G-Mleocssbjcu Pept 4170 pg/ml 07/12/24 14:32
LDL Cholesterol, Calc 29.55754 mg/dl 07/13/24 06:28
Vitamin B12 841 pg/ml (239-931) 07/17/24 08:01
Ur Buprenorphine Negative (Negative) 07/12/24 14:32
Patient Allergies
haloperidol Allergy (Verified 07/06/24 02:26)
Unknown
LDL Level: <70, continue statin (statin on hold due to elevated LFTs)
Review of Systems
-
Unable to obtain full review of systems at this time due to: Other (confusion/distracted conversation)
History Source: Patient
EENT: Swallowing Difficulty; Negative Decreased Vision
Neuro: Weakness; Negative Dizzy, Headache or Speech Problem
Physical Exam
-
General: No Apparent Distress
Eyes: No Ptosis and PERRLA
HEENT: Normocephalic; Negative Atraumatic (bilateral periorbital and nasal bridge ecchymosis)
Neck: Full Range of Motion
Respiratory: No Dyspnea
GI: Non-distended
Skin: Other (ecchymosis, scabbing)
Psych: Confused
Extended Neurological Exam
Mood & Affect: Mood Unremarkable and Affect Unremarkable
Attention Span & Concentration: Awake, Alert, Interactive and Severe Difficulty with 2 Step Request
Memory: Reduced (Confused, oriented to place and person only.)
Involuntary Movement: Asterixis
Speech: Quantity Unremarkable and Dysarthric; Negative Quality Unremarkable (hypophonic)
Cranial Nerve II: Left Eye: Pupillary Reactivity Unremarkable, Pupillary Size Unremarkable and Visual Bell Grossly Intact
Cranial Nerve II: Right Eye: Pupillary Reactivity Unremarkable, Pupillary Size Unremarkable and Visual Bell Grossly Intact
Cranial Nerves III, IV, : Extraocular Movement: Extraocular Movement Full in all Directions
Cranial Nerve VII: Facial Symmetry: Normal Facial Symmetry
Cranial Nerve VIII: Hearing: Unremarkable Hearing to Normal Conversational Volume
Cranial Nerve XII: Tongue Protusion: Midline
Muscle Strength, Overall: Full in Upper Extremities and Other (challenging to assess BLE due to cooperation, moves spontaneously)
Muscle Bulk & Tone: Bulk Unremarkable and Tone Unremarkable
Pronator Drift: No Drift in Upper Extremities and Unable to Assess (BLE)
Touch Sensation: Unable to Assess
Coordination: [id number] Testing Unremarkable
Gait & Station: Unable to Assess
Modified Coryell Score (MRS)
-
Modified Coryell Scale (mRS): Moderately severe disability. Unable to attend to bodily needs/walk.
Score: 4
Data Reviewed
-
CT Head: Report Reviewed and Image Reviewed
MRI Head: Pending
MRA Head: Pending
MRA Neck: Pending
Labs: Report Reviewed
Lipid Profile: Report Reviewed
HgbA1C: Report Reviewed
Reviewed with: Physician, Nurse Practioner and Patient
Medications
-
Active Medications
Generic Name Dose Route Start Last Admin
Trade Name Freq PRN Reason Stop Dose Admin
Acetaminophen 650 mg 07/12/24 20:50
Acetaminophen 325 Mg Tablet PO 08/09/24 20:49
Q4HPRN PRN
mild pain/[place]/temp> 100.4F
Amiodarone HCl 200 mg 07/14/24 08:00 07/19/24 08:10
Amiodarone 200 Mg Tablet PO 08/11/24 07:59 200 mg
DAILY MILLICENT Administration
Apixaban 5 mg 07/14/24 20:00 07/18/24 08:48
Apixaban (Eliquis) 5 Mg Tablet PO 08/11/24 19:59 5 mg
BID MILLICENT Administration
Aspirin 81 mg 07/13/24 08:00 07/19/24 08:10
Aspirin 81 Mg (Enteric Coated) Tablet PO 08/10/24 07:59 81 mg
DAILY MILLICENT Administration
Calcium Carbonate 1,000 mg 07/13/24 08:00 07/19/24 08:10
Calcium Carbonate 500 Mg Tablet PO 08/10/24 07:59 1,000 mg
DAILY MILLICENT Administration
Cholecalciferol 25 mcg 07/13/24 08:00 07/19/24 08:10
Cholecalciferol (Vitamin D3) 25 Mcg Tablet (1,000 Units) PO 08/10/24 07:59 25 mcg
DAILY MILLICENT Administration
Dextrose 12.5 grams 07/12/24 20:50 07/18/24 20:01
Dextrose 50% (0.5 Grams/Ml) 50 Ml Syringe IV 08/09/24 20:49 12.5 grams
[id number] PRN Administration
hypoglycemia
Protocol
Divalproex Sodium 500 mg 07/17/24 22:00 07/18/24 22:06
Divalproex 500 Mg Delayed Release (12 Hr) Tablet PO 08/14/24 21:59 500 mg
HS MILLICENT Administration
Divalproex Sodium 1,000 mg 07/18/24 22:00 07/18/24 22:06
Divalproex 500 Mg Delayed Release (12 Hr) Tablet PO 08/15/24 21:59 1,000 mg
HS MILLICENT Administration
Docusate Sodium 100 mg 07/12/24 20:50 07/19/24 08:10
Docusate Sodium 100 Mg Capsule PO 08/09/24 20:49 100 mg
BID MILLICENT Administration
Furosemide 20 mg 07/15/24 15:00 07/19/24 08:10
Furosemide 20 Mg Tablet PO 08/12/24 14:59 20 mg
DAILY MILLICENT Administration
Glucagon 1 mg 07/12/24 20:50
Glucagon 1 Mg Vial IM 08/09/24 20:49
PRN PRN
hypoglycemia
Protocol
Dextrose/Sodium Chloride 1,000 mls @ 65 mls/hr 07/16/24 16:00 07/18/24 21:34
D5/0.9% Sodium Chloride IV 1,000 mls
.[id number] MILLICENT Administration
Ampicillin Sodium/Sulbactam 120 mls @ 240 mls/hr 07/17/24 20:00 07/19/24 09:47
Sodium 3 gm/ Sodium Chloride IV 120 mls
Q6H MILLICENT Administration
Insulin Aspart 0 units 07/19/24 10:02
Insulin Aspart Low Resistance 300 Units/3 Ml Pen.Injctr SC 08/13/24 00:00
AC MILLICENT
Protocol
Metoprolol Succinate 75 mg 07/13/24 08:00 07/19/24 08:10
Metoprolol 50 Mg Extended Release Tablet PO 08/10/24 07:59 Not Given
DAILY MILLICENT
Olanzapine 15 mg 07/18/24 08:00 07/19/24 08:10
Olanzapine 5 Mg Tablet PO 08/15/24 07:59 15 mg
DAILY MILLICENT Administration
Polyethylene Glycol 17 grams 07/13/24 08:00 07/19/24 08:11
Polyethylene Glycol Powder 17 Grams Packet PO 08/10/24 07:59 Not Given
DAILY MILLICENT
Sennosides 17.2 mg 07/12/24 20:50
Sennosides (Senokot) 8.6 Mg Tablet PO 08/09/24 20:49
DAILYPRN PRN
constipation
Sennosides 8.6 mg 07/12/24 20:50 07/19/24 08:10
Sennosides (Senokot) 8.6 Mg Tablet PO 08/09/24 20:49 8.6 mg
BID MILLICENT Administration
Sertraline HCl 50 mg 07/13/24 08:00 07/19/24 08:10
Sertraline 50 Mg Tablet PO 08/10/24 07:59 50 mg
DAILY MILLICENT Administration
Sodium Chloride 0 flush 07/12/24 21:00
Sodium Chloride 0.9% (Flush) Syringe IV 08/09/24 20:59
PER PROTOCOL MILLICENT
Tamsulosin HCl 0.8 mg 07/12/24 22:00 07/18/24 21:35
Tamsulosin 0.4 Mg Capsule PO 08/09/24 21:59 0.8 mg
HS MILLICENT Administration
Thiamine HCl 100 mg 07/19/24 09:00 07/19/24 09:47
Thiamine 100 Mg Tablet PO 07/21/24 08:01 100 mg
DAILY MILLICENT Administration
Home Medications
�Medication �Instructions �Recorded
acetaminophen 325 mg tablet 650 mg PO Q4HPRN PRN mild pain, 04/07/19
temp>100.4
amiodarone 200 mg tablet (Pacerone) 300 mg PO BID Heart disease 04/07/19
aspirin 81 mg tablet,delayed 81 mg PO DAILY Blood clot 04/07/19
release prevention/tx
atorvastatin 20 mg tablet 60 mg PO HS High cholesterol 04/07/19
benztropine 1 mg tablet 1 mg PO DAILY Neurological 04/07/19
Condition
bisacodyl 10 mg rectal suppository [address] DAILYPRN PRN if no bm 04/07/19
(OneLAX Bisacodyl) aftr sorbitol
cholecalciferol (vitamin D3) 25 1,000 units PO DAILY Supplement 04/07/19
mcg (1,000 unit) tablet
olanzapine 20 mg tablet 20 mg PO DAILY Mental 04/07/19
Health/Anxiety
sennosides 8.6 mg tablet (senna) 1 tab PO BID Constipation 04/07/19
sertraline 50 mg tablet 50 mg PO DAILY Mental 04/07/19
Health/Anxiety
sorbitol 70 % solution 30 ml PO DAILYPRN PRN constipation 04/07/19
furosemide 20 mg tablet 20 mg PO DAILY 05/17/19
clopidogrel 75 mg tablet 75 mg PO DAILY Blood Clot 01/16/21
Prevention/Tx
docusate sodium 100 mg capsule 100 mg PO BID Constipation 01/16/21
metoprolol succinate 50 mg 75 mg PO DAILY Heart 01/16/21
tablet,extended release 24 hr Disease/Condition
(Toprol XL)
calcium carbonate (Calcium 600) 1,200 mg PO DAILY Supplement 07/12/24
divalproex 250 mg tablet,delayed 750 mg PO BID Neurological 07/12/24
release (Depakote) Condition
guaifenesin 600 mg tablet, 600 mg PO BIDPRN PRN cough 07/12/24
extended release 12 hr
lisinopril 10 mg tablet 15 mg PO DAILY Blood Pressure 07/12/24
polyethylene glycol 3350 17 gram 17 g PO DAILY Constipation 07/12/24
oral powder packet (Miralax)
sennosides 8.6 mg tablet (senna) 17.2 mg PO DAILYPRN PRN 07/12/24
constipation
sodium phosphates 19 gram-[address] DAILYPRN PRN if no bm 07/12/24
gram/118 mL enema (Fleet Enema) aftr dulcalax
tamsulosin 0.4 mg capsule (Flomax) 0.8 mg PO HS Urinary Issue 07/12/24

Documented by User: Walker Gao MD 07/19/24 15:31
Today's Communication / Plan
-
continue apixaban for stroke prevention now. Addition of antiplatelet medication per Cardiology/Vascular Surgery, no role for this from a Neurological standpoint.
-Continue home valproic acid dosing/per psych recommendations.
-Goal normotension.
-Continue thiamine 100mg PO daily.
-LDL goal <70. LDL is 29. Atorvastatin 60mg daily is on hold due to elevated LFTs, restart when cleared by primary team.
Neuro Assessment/Plan
Assessment
63-year-old male with a PMH of paroxysmal Afib, bipolar disorder, schizophrenia, former alcohol, PAD, COPD, HTN, HLD, DM, CKD, h/o DVT presented to on 07/12/24 with report of a one week history of increasing weakness, lethargy, and a fall with
nose fracture.
CT Head 07/18/24: Moderate diffuse cerebral and cerebellar volume loss. 2.1 cm chronic infarct in the right basal ganglia and right caudate nucleus. Mild white matter leukoaraiosis in both cerebral hemispheres. Severe calcific atherosclerotic plaque
in the anterior intracranial circulation. 2.1 cm crescent-shaped region of high attenuation in the subcutaneous fat of the scalp posterior to the left parietal bone. Diagnostic possibilities are (1) an acute scalp soft tissue hematoma, (2) scarring
from previous traumatic injury, or (3) a soft tissue tumor (skin cancer).
MRI of brain
1. Moderate diffuse cerebral and cerebellar volume loss.
2. 1.3 cm chronic hemorrhagic infarct or intraparenchymal hemorrhage in the right basal ganglia.
3. Moderate white matter leukoaraiosis in the parietal lobes.
4. Mild white matter leukoaraiosis in the frontal lobes.
5. Mild paranasal sinus mucosal disease.
6. 1.3 cm irregularly-shaped lesion in the scalp soft tissues posterior to the left parietal bone (probably scarring and less likely a scalp soft tissue tumor)
MRA head and neck: Very severe calcific atherosclerotic plaque throughout the intracranial internal carotid arteries.
Valproic acid level 07/12/24: 72.5
I. Multifactorial encephalopathy (infectious, vascular, metabolic, hypoxic).
II. TBI
III.Chronic basal ganglia infarct
IV. PA A-Fib
Plan
continue apixaban for stroke prevention now. Addition of antiplatelet medication per Cardiology/Vascular Surgery, no role for this from a Neurological standpoint.
-Continue home valproic acid dosing/per psych recommendations.
-Goal normotension.
-Continue thiamine 100mg PO daily.
-LDL goal <70. LDL is 29. Atorvastatin 60mg daily is on hold due to elevated LFTs, restart when cleared by primary team.
-Goal normoglycemia, hbA1c is 5.2.
-Provide patient with a stroke education packet.
-PT/OT/ST. VSE pending.
-DVT prophylaxis.
Will follow as needed
Modified Coryell Score (MRS)
-
Score: 4
Past History
Past History
ED Past Medical History: Arrthythmia (Paroxysmal atrial fibrillation), CHF, HTN, NIDDM, Renal failure, Psychiatric (Bipolar, schizophrenia), Other (peripheral arterial disease, degenerative joint disease, cardiomyopathy, ischemic lower extremity
disease) and Other (Anemia, GI bleed, bilateral lower extremity dry gangrene)
Social History
Tobacco: Former smoker
Living: [facility]
Employment: Disabled
Family History
Family History: Unable to obtain
Medications
-
Medications:
Generic Name Dose Route Start Last Admin
Trade Name Freq PRN Reason Stop Dose Admin
Acetaminophen 650 mg 07/12/24 20:50
Acetaminophen 325 Mg Tablet PO 08/09/24 20:49
Q4HPRN PRN
mild pain/[place]/temp> 100.4F
Amiodarone HCl 200 mg 07/14/24 08:00 07/19/24 08:10
Amiodarone 200 Mg Tablet PO 08/11/24 07:59 200 mg
DAILY MILLICENT Administration
Apixaban 5 mg 07/14/24 20:00 07/18/24 08:48
Apixaban (Eliquis) 5 Mg Tablet PO 08/11/24 19:59 5 mg
BID MILLICENT Administration
Aspirin 81 mg 07/13/24 08:00 07/19/24 08:10
Aspirin 81 Mg (Enteric Coated) Tablet PO 08/10/24 07:59 81 mg
DAILY MILLICENT Administration
Calcium Carbonate 1,000 mg 07/13/24 08:00 07/19/24 08:10
Calcium Carbonate 500 Mg Tablet PO 08/10/24 07:59 1,000 mg
DAILY MILLICENT Administration
Cholecalciferol 25 mcg 07/13/24 08:00 07/19/24 08:10
Cholecalciferol (Vitamin D3) 25 Mcg Tablet (1,000 Units) PO 08/10/24 07:59 25 mcg
DAILY MILLICENT Administration
Dextrose 12.5 grams 07/12/24 20:50 07/18/24 20:01
Dextrose 50% (0.5 Grams/Ml) 50 Ml Syringe IV 08/09/24 20:49 12.5 grams
[id number] PRN Administration
hypoglycemia
Protocol
Divalproex Sodium 500 mg 07/17/24 22:00 07/18/24 22:06
Divalproex 500 Mg Delayed Release (12 Hr) Tablet PO 08/14/24 21:59 500 mg
HS MILLICENT Administration
Divalproex Sodium 1,000 mg 07/18/24 22:00 07/18/24 22:06
Divalproex 500 Mg Delayed Release (12 Hr) Tablet PO 08/15/24 21:59 1,000 mg
HS MILLICENT Administration
Docusate Sodium 100 mg 07/12/24 20:50 07/19/24 08:10
Docusate Sodium 100 Mg Capsule PO 08/09/24 20:49 100 mg
BID MILLICENT Administration
Furosemide 20 mg 07/15/24 15:00 07/19/24 08:10
Furosemide 20 Mg Tablet PO 08/12/24 14:59 20 mg
DAILY MILLICENT Administration
Glucagon 1 mg 07/12/24 20:50
Glucagon 1 Mg Vial IM 08/09/24 20:49
PRN PRN
hypoglycemia
Protocol
Dextrose/Sodium Chloride 1,000 mls @ 65 mls/hr 07/16/24 16:00 07/18/24 21:34
D5/0.9% Sodium Chloride IV 1,000 mls
.[id number] MILLICENT Administration
Ampicillin Sodium/Sulbactam 120 mls @ 240 mls/hr 07/17/24 20:00 07/19/24 13:58
Sodium 3 gm/ Sodium Chloride IV 07/19/24 23:59 120 mls
Q6H MILLICENT Administration
Insulin Aspart 0 units 07/19/24 10:02 07/19/24 12:57
Insulin Aspart Low Resistance 300 Units/3 Ml Pen.Injctr SC 08/13/24 00:00 Not Given
AC MILLICENT
Protocol
Metoprolol Succinate 75 mg 07/13/24 08:00 07/19/24 08:10
Metoprolol 50 Mg Extended Release Tablet PO 08/10/24 07:59 Not Given
DAILY MILLICENT
Olanzapine 15 mg 07/18/24 08:00 07/19/24 08:10
Olanzapine 5 Mg Tablet PO 08/15/24 07:59 15 mg
DAILY MILLICENT Administration
Polyethylene Glycol 17 grams 07/13/24 08:00 07/19/24 08:11
Polyethylene Glycol Powder 17 Grams Packet PO 08/10/24 07:59 Not Given
DAILY MILLICENT
Sennosides 17.2 mg 07/12/24 20:50
Sennosides (Senokot) 8.6 Mg Tablet PO 08/09/24 20:49
DAILYPRN PRN
constipation
Sennosides 8.6 mg 07/12/24 20:50 07/19/24 08:10
Sennosides (Senokot) 8.6 Mg Tablet PO 08/09/24 20:49 8.6 mg
BID MILLICENT Administration
Sertraline HCl 50 mg 07/13/24 08:00 07/19/24 08:10
Sertraline 50 Mg Tablet PO 08/10/24 07:59 50 mg
DAILY MILLICENT Administration
Sodium Chloride 0 flush 07/12/24 21:00
Sodium Chloride 0.9% (Flush) Syringe IV 08/09/24 20:59
PER PROTOCOL MILLICENT
Tamsulosin HCl 0.8 mg 07/12/24 22:00 07/18/24 21:35
Tamsulosin 0.4 Mg Capsule PO 08/09/24 21:59 0.8 mg
HS MILLICENT Administration
Thiamine HCl 100 mg 07/19/24 09:00 07/19/24 09:47
Thiamine 100 Mg Tablet PO 07/21/24 08:01 100 mg
DAILY MILLICENT Administration
[2024-07-19] MEDS: VITAMIN B1 100 MG PO (09:47)
[2024-07-19] MEDS: ATIVAN 1 MG PO (10:34)
[2024-07-19 10:53] VITALS: BP 145/83
[2024-07-19 12:51] LABS: Glucose - Point of Care 64 mg/dl (70-99)
--- NOTE | 2024-07-19 12:58 | CM ---
Patient seen bedside eating after VSE and MRI.
PT recommending skilled rehab
Plan: Patient to return to [facility], by ambulance when stable.
Ambulance transport forms on chart.
[facility]
Report [phone]
[2024-07-19 13:21] LABS: Glucose - Point of Care 84 mg/dl (70-99)
[2024-07-19 13:45] LABS: % Basophils 0.8 % (0-2); % Eosinophils 2.5 % (0-6); % Immature Granulocytes 1.3 % (0-0.5); % Lymphocytes 16.3 % (20.5-51.1); % Monocytes 12.5 % (1.7-9.3); % Neutrophils 66.6 % (42.2-75.2); Absolute Eosinophils 0.1 10^3/uL (0-0.7); Absolute Immature Granulocytes 0.1 10^3/uL (0-0.05); Absolute Lymphocytes 0.9 10^3/uL (1.2-3.4); Absolute Monocytes 0.7 10^3/uL (0.1-0.6); Absolute Neutrophils 3.5 10^3/uL (1.4-6.5); Hematocrit 29.4 % (39.0-52.0); Mean Corpuscular Hgb 30.8 pg (27.0-31.0); Mean Corpuscular Volume 90.5 fL (80.0-94.0); Mean Platelet Volume 10.2 fL (7.4-10.4); Nucleated Red Blood Cells % 0 % (-); Platelet Count 170 10^3/uL (130-400); Red Blood Cell Count 3.25 10^6/uL (4.70-6.10); Red Cell Dist. Width 15.9 % (11.5-14.5); White Blood Cell Count 5.3 10^3/uL (4.8-10.8)
--- NOTE | 2024-07-19 13:53 | PTOTSP ---
Videofluoroscopic swallow study
Mild oral, mild-moderate pharyngeal dysphagia.
+ Silent aspiration of thin via tsp.
Given patient behaviors (i.e., talking while eating/drinking, and limited natural dentition in poor condition) begin with modified diet below.
Recommend:
1. IDDSI level 5 minced/moist, thin liquids
2. medications in puree
3. strategies: full supervision/assistance, single sips, slow rate, ensure patient swallows before next bite, reflux precautions
4. oral care 3-5x daily with suctioning
5. hold aspiration risk hydration protocol given cognitive status
6. dysphagia tx at the acute care level for caregiver instruction, determination re: solid advancement
[2024-07-19 14:03] LABS: INR 1.88; PT 21.8 Sec (11.4-14.6)
[2024-07-19 14:06] LABS: ALT (SGPT) 228 U/L (0-50); AST (SGOT) 311 U/L (17-59); Albumin 2.2 g/dl (3.5-5.0); Alkaline Phosphatase 80 U/L (38-126); Blood Urea Nitrogen 28 mg/dl (9-20); Calcium 8.4 mg/dl (8.4-10.2); Carbon Dioxide 27 mmol/L (22-30); Chloride 110 mmol/L (98-107); Estimated Creatinine Clearance 65 ml/min; Glucose 92 mg/dl (70-99); Sodium 140 mmol/L (135-145); Total Bilirubin 0.6 mg/dl (0.2-1.3); Total Protein 5.8 g/dl (6.3-8.2); eGFR 56.48
--- NOTE | 2024-07-19 14:26 | W.PN.HOSP.TC ---
Today's Communication/Plan
-
GI consult
ACTH stimulation test
Assessment / Plan
Assessment / Plan
Gen-sedated but arousable
HEENT-NC, AT, anicteric, clear oral mm
Neck-supple
CV-reg, no M, +S1/S2
Lungs-clear B/L
Abd-soft, NT, ND
Ext-no edema
Musculoskeletal-no cyanosis, clubbing
Skin-warm and dry
Acute encephalopathy -likely multifactorial etiology including PRESTON, pneumonia, intermittent hypoglycemia. Brain MRI completed and shows 1.3 cm chronic hemorrhagic infarct or ICH in the right basal ganglia. Not sure this is contributing to his
sedation and altered mental status. Moderate diffuse cerebral/cerebellar volume loss noted. MRA head and neck noted.
Apparently he has also had intermittent bouts of hypoglycemia. Nursing notes that mental status improves with correction of hypoglycemia. Will check ACTH stimulation test. A.m. cortisol several days ago was 13.
Aspiration pneumonia -left lower lobe consolidation noted on CT abdomen/pelvis. Today is day 7 of antibiotics.
Acute hypoxic respiratory insufficiency -due to aspiration pneumonia. Oxygenation improved, now on room air.
Hypotension: Resolved. Likely due to volume depletion.
PRESTON on CKD 3 AA -PRESTON improved. Suspect volume depletion.
Dysphagia -completed video swallowing study. Minced/moist diet with mildly thickened liquids recommended by speech therapy. GI consulted for slow esophageal transit.
Elevated LFTs: Characterized by elevated transaminases. Bilirubin and alkaline phosphatase normal. Atorvastatin on hold. Ultrasound shows no evidence of cholelithiasis, cholecystitis or biliary ductal dilation. Liver echogenicity appears normal
with no evidence of a focal lesion.
Recent fall with nasal fracture:
Pain control
PT eval
History of schizophrenia/depression/cognitive impairment/former alcoholic:
On Depakote olanzapine and Zoloft--> psychiatry consulted and adjusting his medications accordingly.
Chronic systolic CHF:
On diuresis but holding due to n.p.o. and hypotension. Continue po furosemide.
On b-blockers
Paroxysmal atrial fibrillation:
Sinus bradycardia on admission EKG
Continue Eliquis, aspirin per cardiology.
On amiodarone for antiarrhythmic-appears to be a high dose and cardiology consulted and decreased doses to 200 mg daily now.
DM2 with hypoglycemia -hemoglobin A1c 5.2%. Has had intermittent bouts of hypoglycemia in the hospital. ACTH stimulation test ordered as above.
BPH
PAD -stable.
DVT prophylaxis:
Eliquis
CODE STATUS:
Full code
Anticipated Discharge: 24 - 48 hours
Subjective/Interval History
-
Date of Service: July 19, 2024
Patient seen and examined. Sleepy but arousable. No complaints.
Objective Data
-
Labs:
Laboratory Results
07/19/24
13:38
WBC 5.3
Hgb 10.0 L
Hct 29.4 L
Plt Count 170
PT 21.8 H
INR 1.88
Sodium 140
Potassium 4.0
Chloride 110 H
Carbon Dioxide 27
BUN 28 H
Creatinine 1.4 H
Glucose 92
Calcium 8.4
Total Bilirubin 0.6
AST 311 H
ALT 228 H
Alkaline Phosphatase 80
Vital Signs:
Vital Signs
Temp Pulse Resp BP Pulse Ox
98.3 F 83 18 145/83 99
07/19/24 10:53 07/19/24 10:53 07/19/24 10:53 07/19/24 10:53 07/19/24 10:53
I&O
07/18/24 07/19/24 07/20/24
06:59 06:59 06:59
Intake Total 2450 / 2450 2039 / 2039
Output Total 400 / 400 1325 / 1325
Balance 2049 715 / 715
Review of Systems
-
History Source: Patient
All other systems: Reviewed and negative
[2024-07-19 15:10] VITALS: BP 147/86
[2024-07-19 15:25] LABS: Glucose - Point of Care 98 mg/dl (70-99)
--- NOTE | 2024-07-19 15:58 | CON.GI ---
Consultation
-
Date/Time Consultation Requested: 07/19/2024
Date/Time Consultation Performed: 07/19/2024
Requesting Provider: Dr. Suresh
Performing Provider: Dr. Jose
Reason for Consultation: Dysphagia, requested by speech therapy
Medical History
Chief Complaint / HPI
History of Present Illness:
Theodore is a 63-year-old male with multiple medical issues including A-fib on Eliquis, significant psychiatric disorders, peripheral arterial disease with multiple vascular interventions, active tobacco use comes in from a [facility] halfway
on 07/12/2024 with significant lethargy, PRESTON, metabolic encephalopathy from multiple sources. He fell the week before admission fracturing his nose. He has significant psychiatric disorders with schizoaffective disorder and has not been seen by
psych since 2020 at baseline he is usually alert and oriented with a good appetite according to the chart and [facility] home but over the past week or so he has become more lethargic.
Today, patient is somnolent, arousable and answers one-word but goes back to sleep. According to the nurse he has been this way since admission
He is on multi anticholinergics including Zyprexa and Cogentin which can worsen dry mouth as well as cognitive issues and constipation. He has been on these medications for very long time.
Currently being treated for aspiration pneumonia and multifocal encephalopathy from multiple sources including PRESTON, pneumonia, intermittent hypoglycemia. Brain MRI shows a chronic hemorrhagic infarct. According to the notes his mental status
improves when his hypoglycemia gets corrected. He is undergoing an ACTH stimulation test.
On CT scan he has a left lower pulmonary lobe consolidation and is on day 7 of antibiotics. His acute hypoxic respiratory failure has improved now on room air. Hypotension also improved after volume repletion. PRESTON improved.
Patient was seen by speech therapy on 07/19/2024. Repeat imaging of the thoracic esophagus demonstrates moderate esophageal retention but no fluoroscopic evidence of airway aspiration.
Review of his blood work shows chronic anemia the hemoglobin stable during this admission. Looking back in 2019 hemoglobins were around 7-9, platelets 170,, creatinine 1.4 which is close to his baseline, on admission was 2.5, BUN 28, potassium 4,
sodium 140, AST 311, ALT 228, total bilirubin 0.6, alkaline phosphatase 80, albumin 2.2
Patient also has a hepatocellular injury with AST of 311, on admission 86, last checked in 2019 was normal. ALT 228, on admission 67, previously in 2020 normal. Normal total bilirubin and alkaline phosphatase
Patient was hypotensive on admission 76/44, currently normotensive at 147/86, now on room air
Past Medical History
Past Medical History: Other (schizophrenia, bipolar disorder, paroxysmal atrial fibrillation, cardiomyopathy, chronic heart failure with mildly reduced ejection fraction, peripheral vascular disease upper extremity DVT, type 2 diabetes,
wheelchair-bound, hypertension)
Past Surgical History: Other (Left femoral endarterectomy in 2019, left iliac stent multiple arterial/vascular studies)
Social History
Tobacco: Smoker
Alcohol: Former (Former alcoholic)
Drug: None
Personal: Single
Living: [facility]
Employment: Disabled
Family History
Family History: CAD
Allergies / Home Medications
Allergy/AdvReac Type Severity Reaction Status Date / Time
haloperidol Allergy Unknown Verified 07/06/24 02:26
�Medication �Instructions �Recorded
acetaminophen 325 mg tablet 650 mg PO Q4HPRN PRN mild pain, 04/07/19
temp>100.4
amiodarone 200 mg tablet (Pacerone) 300 mg PO BID Heart disease 04/07/19
aspirin 81 mg tablet,delayed 81 mg PO DAILY Blood clot 04/07/19
release prevention/tx
atorvastatin 20 mg tablet 60 mg PO HS High cholesterol 04/07/19
benztropine 1 mg tablet 1 mg PO DAILY Neurological 04/07/19
Condition
bisacodyl 10 mg rectal suppository 10 mg DC DAILYPRN PRN if no bm 04/07/19
(OneLAX Bisacodyl) aftr sorbitol
cholecalciferol (vitamin D3) 25 1,000 units PO DAILY Supplement 04/07/19
mcg (1,000 unit) tablet
olanzapine 20 mg tablet 20 mg PO DAILY Mental 04/07/19
Health/Anxiety
sennosides 8.6 mg tablet (senna) 1 tab PO BID Constipation 04/07/19
sertraline 50 mg tablet 50 mg PO DAILY Mental 04/07/19
Health/Anxiety
sorbitol 70 % solution 30 ml PO DAILYPRN PRN constipation 04/07/19
furosemide 20 mg tablet 20 mg PO DAILY 05/17/19
clopidogrel 75 mg tablet 75 mg PO DAILY Blood Clot 01/16/21
Prevention/Tx
docusate sodium 100 mg capsule 100 mg PO BID Constipation 01/16/21
metoprolol succinate 50 mg 75 mg PO DAILY Heart 01/16/21
tablet,extended release 24 hr Disease/Condition
(Toprol XL)
calcium carbonate (Calcium 600) 1,200 mg PO DAILY Supplement 07/12/24
divalproex 250 mg tablet,delayed 750 mg PO BID Neurological 07/12/24
release (Depakote) Condition
guaifenesin 600 mg tablet, 600 mg PO BIDPRN PRN cough 07/12/24
extended release 12 hr
lisinopril 10 mg tablet 15 mg PO DAILY Blood Pressure 07/12/24
polyethylene glycol 3350 17 gram 17 g PO DAILY Constipation 07/12/24
oral powder packet (Miralax)
sennosides 8.6 mg tablet (senna) 17.2 mg PO DAILYPRN PRN 07/12/24
constipation
sodium phosphates 19 gram-7 118 ml DC DAILYPRN PRN if no bm 07/12/24
gram/118 mL enema (Fleet Enema) aftr dulcalax
tamsulosin 0.4 mg capsule (Flomax) 0.8 mg PO HS Urinary Issue 07/12/24
Review of Systems
Vital Signs
Temp Pulse Resp BP Pulse Ox
98.9 F 88 18 147/86 93
07/19/24 15:10 07/19/24 15:10 07/19/24 15:10 07/19/24 15:10 07/19/24 15:10
Physical Exam
Exam
General: Other (Unkempt, somnolent, arousable with occasional one-word answer)
HEENT: Anicteric
GI: Soft and Non Tender
Musculoskeletal: Other (Multiple well-healed surgical scars over his legs and toes with history of amputations of his toes)
Neuro: Other (Somnolent but arousable with one-word answers)
Psych: Calm
Results
WBC 5.3 10^3/uL (4.8-10.8) 07/19/24 13:38
Hgb 10.0 g/dL (13.0-18.0) L 07/19/24 13:38
Hct 29.4 % (39.0-52.0) L 07/19/24 13:38
MCV 90.5 fL (80.0-94.0) 07/19/24 13:38
Plt Count 170 10^3/uL (130-400) 07/19/24 13:38
Absolute Neuts (auto) 3.5 10^3/uL (1.4-6.5) 07/19/24 13:38
PT 21.8 Sec (11.4-14.6) H 07/19/24 13:38
INR 1.88 07/19/24 13:38
Sodium 140 mmol/L (135-145) 07/19/24 13:38
Potassium 4.0 mmol/L (3.5-5.1) 07/19/24 13:38
Chloride 110 mmol/L (98-107) H 07/19/24 13:38
Carbon Dioxide 27 mmol/L (22-30) 07/19/24 13:38
BUN 28 mg/dl (9-20) H 07/19/24 13:38
Creatinine 1.4 mg/dL (0.7-1.3) H 07/19/24 13:38
Calcium 8.4 mg/dl (8.4-10.2) 07/19/24 13:38
Total Bilirubin 0.6 mg/dl (0.2-1.3) 07/19/24 13:38
AST 311 U/L (17-59) H 07/19/24 13:38
ALT 228 U/L (0-50) H 07/19/24 13:38
Alkaline Phosphatase 80 U/L (38-126) 07/19/24 13:38
Diagnostic Image Results:
-- Review of abdominal ultrasound from 07/14/2024 was unremarkable with no evidence of focal hepatic lesion normal gallbladder, normal bile ducts, normal liver echogenicity
--Review of CT scan from 07/12/2024 without IV contrast. Liver was unremarkable on that study. There is a left lower lobe pulmonary consolidation highly suspicious for pneumonia and recommended follow-up imaging to rule out mass. No other
significant process in the abdomen or pelvis.
Prior GI Procedures: NONE
EGD:
Colonoscopy:
Assessment / Plan
-
# Encephalopathy -multiple sources including medications, infections, psychiatry and neurology are following as well
# Aspiration pneumonia concern for dysphagia with esophageal retention on speech swallowing brief imaging
-- Patient has multiple medications that can induce slow esophageal emptying including multiple anticholinergics including Zyprexa, Cogentin which has been stopped
-- No prior endoscopy
--Today and according to the nurse this has been his baseline since admission. He is somnolent and not awake and alert enough to participate in a conversation and unlikely safe to eat until he is more alert. Again this is a moment in time and
please reassess regularly
-- Patient is currently on Eliquis
-- When he is more awake alert, I would reassess. Could start with a barium esophagram versus going to an EGD pending a conversation with him after he becomes more alert.
# Hepatocellular injury -potentially drug-induced liver injury versus hepatitis versus ischemic
07/19/24: AST 311, ALT 228, total bilirubin 0.6, alkaline phosphatase 80, albumin 2.2
AST of 311, on admission 86, last checked in 2019 was normal. ALT 228, on admission 67, previously in 2020 normal. Normal total bilirubin and alkaline phosphatase
Patient was hypotensive on admission 76/44, currently normotensive at 147/86
Patient is still on amiodarone which at this level of liver injury should be held, also on ampicillin-sulbactam which can cause liver injury. Looks like his last dose is today so hopefully that has stopped. Statin has been held
-- Review of abdominal ultrasound from 07/14/2024 was unremarkable with no evidence of focal hepatic lesion normal gallbladder, normal bile ducts, normal liver echogenicity
--Review of CT scan from 07/12/2024 without IV contrast. Liver was unremarkable on that study. There is a left lower lobe pulmonary consolidation highly suspicious for pneumonia and recommended follow-up imaging to rule out mass. No other
significant process in the abdomen or pelvis.
-- trend and avoid hepatotoxins - d/c tylenol prn order
Data Reviewed
-
CT Scan: Report Reviewed by me
Ultrasound: Report Reviewed by me
Old Records: Reviewed
-
-
Thank you for consultation and allowing me to participate in the patient's care. Please call the food and nutrition teacher GI physician during the after hours with any questions or concerns.
[2024-07-19 16:40] LABS: ACTH Stim Cortisol 0 Min 20.8 ug/dl
[2024-07-19] MEDS: CORTROSYN 0.25 MG IV (16:47)
[2024-07-19 17:31] LABS: Glucose - Point of Care 104 mg/dl (70-99)
[2024-07-19 18:14] LABS: ACTH Stim Cortisol 30 Min 24.2 ug/dl
[2024-07-19 19:16] LABS: ACTH Stim Cortisol 60 Min 31.9 ug/dl
[2024-07-19 20:01] VITALS: BP 132/89
[2024-07-19] MEDS: D5/0.9% SODIUM CHLORIDE 1000 IV (20:02)
[2024-07-19] MEDS: ELIQUIS 5 MG PO (20:04)
[2024-07-19] MEDS: DEPAKOTE (12 HR RELEASE) 500 MG PO (21:34)
[2024-07-19] MEDS: FLOMAX 0.8 MG PO (21:34)
[2024-07-19] MEDS: DEPAKOTE (12 HR RELEASE) 1000 MG PO (21:35)
[2024-07-19 22:43] LABS: Glucose - Point of Care 106 mg/dl (70-99)
[2024-07-19 23:29] VITALS: BP 111/75
[2024-07-20 06:00] VITALS: BMI 27.3
[2024-07-20 07:21] LABS: Glucose - Point of Care 97 mg/dl (70-99)
[2024-07-20 07:29] VITALS: BP 106/72
--- NOTE | 2024-07-20 07:34 | W.PN.NEURO.1 ---
Today's Communication / Plan
-
continue apixaban for stroke prevention now. Addition of antiplatelet medication per Cardiology/Vascular Surgery, no role for this from a Neurological standpoint.
-Continue home valproic acid dosing
-LDL goal <70. LDL is 29. Atorvastatin 60mg daily is on hold due to elevated LFTs, restart when cleared by primary team.
Neuro Assessment/Plan
Assessment
63-year-old male with a one week history of increasing weakness, lethargy, and a fall with nose fracture.
CT Head 07/18/24: Moderate diffuse cerebral and cerebellar volume loss. 2.1 cm chronic infarct in the right basal ganglia and right caudate nucleus. Mild white matter leukoaraiosis in both cerebral hemispheres. Severe calcific atherosclerotic plaque
in the anterior intracranial circulation. 2.1 cm crescent-shaped region of high attenuation in the subcutaneous fat of the scalp posterior to the left parietal bone. Diagnostic possibilities are (1) an acute scalp soft tissue hematoma, (2) scarring
from previous traumatic injury, or (3) a soft tissue tumor (skin cancer).
MRI of brain
1. Moderate diffuse cerebral and cerebellar volume loss.
2. 1.3 cm chronic hemorrhagic infarct or intraparenchymal hemorrhage in the right basal ganglia.
3. Moderate white matter leukoaraiosis in the parietal lobes.
4. Mild white matter leukoaraiosis in the frontal lobes.
5. Mild paranasal sinus mucosal disease.
6. 1.3 cm irregularly-shaped lesion in the scalp soft tissues posterior to the left parietal bone (probably scarring and less likely a scalp soft tissue tumor)
MRA head and neck: Very severe calcific atherosclerotic plaque throughout the intracranial internal carotid arteries.
Valproic acid level 07/12/24: 72.5
I. Multifactorial encephalopathy (infectious, vascular, metabolic, hypoxic).
II. TBI
III.Chronic right basal ganglia infarct
IV. PA A-Fib
Plan
continue apixaban for stroke prevention now. Addition of antiplatelet medication per Cardiology/Vascular Surgery, no role for this from a Neurological standpoint.
-Continue home valproic acid dosing
-LDL goal <70. LDL is 29. Atorvastatin 60mg daily is on hold due to elevated LFTs, restart when cleared by primary team.
-Continue thiamine 100mg PO daily.
-Provide patient with a stroke education packet.
-PT/OT/ST. VSE pending.
-DVT prophylaxis.
Will follow as needed
Subjective/Objective
Subjective Data
Date of Service: July 20, 2024
Objective Data
Vital Signs
Temp Pulse Resp BP Pulse Ox
36.8 C 61 20 106/72 93
07/20/24 07:29 07/20/24 07:29 07/20/24 07:29 07/20/24 07:29 07/20/24 07:29
Lab Results
07/19/24 13:38
07/19/24 13:38
PT 21.8 Sec (11.4-14.6) H 07/19/24 13:38
INR 1.88 07/19/24 13:38
Sodium 140 mmol/L (135-145) 07/19/24 13:38
Potassium 4.0 mmol/L (3.5-5.1) 07/19/24 13:38
BUN 28 mg/dl (9-20) H 07/19/24 13:38
Glucose 92 mg/dl (70-99) 07/19/24 13:38
Calcium 8.4 mg/dl (8.4-10.2) 07/19/24 13:38
Mpm-R-Kxocjssnlax Pept 4170 pg/ml 07/12/24 14:32
LDL Cholesterol, Calc 29.37071 mg/dl 07/13/24 06:28
Vitamin B12 841 pg/ml (239-931) 07/17/24 08:01
Ur Buprenorphine Negative (Negative) 07/12/24 14:32
Patient Allergies
haloperidol Allergy (Verified 07/06/24 02:26)
Unknown
Past History
Past History
ED Past Medical History: Arrthythmia (Paroxysmal atrial fibrillation), CHF, COPD, HTN, NIDDM, Renal failure, Psychiatric (Bipolar, schizophrenia), Other (peripheral arterial disease, degenerative joint disease, cardiomyopathy, ischemic lower
extremity disease) and Other (Anemia, GI bleed, bilateral lower extremity dry gangrene)
ED Past Surgical History: Other (Right femoral [id number] bypass)
Social History
Tobacco: Former smoker
Alcohol: Chronic alcoholic
Personal: Single
Living: [facility]
Employment: Disabled
Family History
Family History: Unable to obtain
Medications
-
Medications:
Generic Name Dose Route Start Last Admin
Trade Name Freq PRN Reason Stop Dose Admin
Amiodarone HCl 200 mg 07/14/24 08:00 07/19/24 08:10
Amiodarone 200 Mg Tablet PO 08/11/24 07:59 200 mg
DAILY MILLICENT Administration
Apixaban 5 mg 07/14/24 20:00 07/19/24 20:04
Apixaban (Eliquis) 5 Mg Tablet PO 08/11/24 19:59 5 mg
BID MILLICENT Administration
Aspirin 81 mg 07/13/24 08:00 07/19/24 08:10
Aspirin 81 Mg (Enteric Coated) Tablet PO 08/10/24 07:59 81 mg
DAILY MILLICENT Administration
Calcium Carbonate 1,000 mg 07/13/24 08:00 07/19/24 08:10
Calcium Carbonate 500 Mg Tablet PO 08/10/24 07:59 1,000 mg
DAILY MILLICENT Administration
Cholecalciferol 25 mcg 07/13/24 08:00 07/19/24 08:10
Cholecalciferol (Vitamin D3) 25 Mcg Tablet (1,000 Units) PO 08/10/24 07:59 25 mcg
DAILY MILLICENT Administration
Dextrose 12.5 grams 07/12/24 20:50 07/18/24 20:01
Dextrose 50% (0.5 Grams/Ml) 50 Ml Syringe IV 08/09/24 20:49 12.5 grams
[id number] PRN Administration
hypoglycemia
Protocol
Divalproex Sodium 500 mg 07/17/24 22:00 07/19/24 21:34
Divalproex 500 Mg Delayed Release (12 Hr) Tablet PO 08/14/24 21:59 500 mg
HS MILLICENT Administration
Divalproex Sodium 1,000 mg 07/18/24 22:00 07/19/24 21:35
Divalproex 500 Mg Delayed Release (12 Hr) Tablet PO 08/15/24 21:59 1,000 mg
HS MILLICENT Administration
Docusate Sodium 100 mg 07/12/24 20:50 07/19/24 20:03
Docusate Sodium 100 Mg Capsule PO 08/09/24 20:49 100 mg
BID MILLICENT Administration
Furosemide 20 mg 07/15/24 15:00 07/19/24 08:10
Furosemide 20 Mg Tablet PO 08/12/24 14:59 20 mg
DAILY MILLICENT Administration
Glucagon 1 mg 07/12/24 20:50
Glucagon 1 Mg Vial IM 08/09/24 20:49
PRN PRN
hypoglycemia
Protocol
Insulin Aspart 0 units 07/19/24 10:02 07/19/24 17:32
Insulin Aspart Low Resistance 300 Units/3 Ml Pen.Injctr SC 08/13/24 00:00 Not Given
AC MILLICENT
Protocol
Metoprolol Succinate 75 mg 07/13/24 08:00 07/19/24 08:10
Metoprolol 50 Mg Extended Release Tablet PO 08/10/24 07:59 Not Given
DAILY MILLICENT
Olanzapine 15 mg 07/18/24 08:00 07/19/24 08:10
Olanzapine 5 Mg Tablet PO 08/15/24 07:59 15 mg
DAILY MILLICENT Administration
Polyethylene Glycol 17 grams 07/13/24 08:00 07/19/24 08:11
Polyethylene Glycol Powder 17 Grams Packet PO 08/10/24 07:59 Not Given
DAILY MILLICENT
Sennosides 17.2 mg 07/12/24 20:50
Sennosides (Senokot) 8.6 Mg Tablet PO 08/09/24 20:49
DAILYPRN PRN
constipation
Sennosides 8.6 mg 07/12/24 20:50 07/19/24 20:03
Sennosides (Senokot) 8.6 Mg Tablet PO 08/09/24 20:49 8.6 mg
BID MILLICENT Administration
Sertraline HCl 50 mg 07/13/24 08:00 07/19/24 08:10
Sertraline 50 Mg Tablet PO 08/10/24 07:59 50 mg
DAILY MILLICENT Administration
Sodium Chloride 0 flush 07/12/24 21:00
Sodium Chloride 0.9% (Flush) Syringe IV 08/09/24 20:59
PER PROTOCOL MILLICENT
Tamsulosin HCl 0.8 mg 07/12/24 22:00 07/19/24 21:34
Tamsulosin 0.4 Mg Capsule PO 08/09/24 21:59 0.8 mg
HS MILLICENT Administration
Thiamine HCl 100 mg 07/19/24 09:00 07/19/24 09:47
Thiamine 100 Mg Tablet PO 07/21/24 08:01 100 mg
DAILY MILLICENT Administration
[2024-07-20] MEDS: MIRALAX 17 GRAMS PO (07:41)
[2024-07-20] MEDS: COLACE 100 MG PO (07:41)
[2024-07-20] MEDS: ELIQUIS 5 MG PO (07:41)
[2024-07-20] MEDS: ASPIR LOW (ENTERIC COATED) 81 MG PO (07:41)
[2024-07-20] MEDS: SENOKOT 8.6 MG PO (07:42)
[2024-07-20] MEDS: VITAMIN D3 (cholecalciferol) 25 MCG PO (07:42)
[2024-07-20] MEDS: OSCAL CAL 500 1000 MG PO (07:43)
[2024-07-20] MEDS: LASIX 20 MG PO (07:43)
[2024-07-20] MEDS: VITAMIN B1 100 MG PO (07:45)
[2024-07-20] MEDS: ZOLOFT 50 MG PO (07:45)
[2024-07-20] MEDS: TOPROL XL PO (07:45)
[2024-07-20 09:22] LABS: ALT (SGPT) 215 U/L (0-50); AST (SGOT) 242 U/L (17-59); Albumin 2.2 g/dl (3.5-5.0); Alkaline Phosphatase 90 U/L (38-126); Direct Bilirubin 0.4 mg/dl (0.0-0.4); Total Bilirubin 0.6 mg/dl (0.2-1.3); Total Protein 5.7 g/dl (6.3-8.2)
--- NOTE | 2024-07-20 09:50 | W.PN.HOSP.TC ---
Today's Communication/Plan
-
Discharge
Assessment / Plan
Assessment / Plan
Gen-awake, alert, oriented to year and month, not day of the week.
HEENT-NC, AT, anicteric, clear oral mm
Neck-supple
CV-reg, no M, +S1/S2
Lungs-clear B/L
Abd-soft, NT, ND
Ext-no edema
Musculoskeletal-no cyanosis, clubbing
Skin-warm and dry
Acute encephalopathy -likely multifactorial etiology including PRESTON, pneumonia, intermittent hypoglycemia, medications. Brain MRI completed and shows 1.3 cm chronic hemorrhagic infarct or ICH in the right basal ganglia. Not sure this is
contributing to his sedation and altered mental status. Moderate diffuse cerebral/cerebellar volume loss noted. MRA head and neck noted.
Much more awake and alert today. Zyprexa dose held this morning. Will discuss with psychiatry moving forward if we can reduce the dose. Yesterday he was sedated but also received a dose of Ativan.
Aspiration pneumonia -left lower lobe consolidation noted on CT abdomen/pelvis. Completed 7 days of antibiotics.
Acute hypoxic respiratory insufficiency -due to aspiration pneumonia. Oxygenation improved, now on room air.
Hypotension: Resolved. Likely due to volume depletion.
Intermittent hypoglycemia -this has been a chronic issue apparently. No evidence of adrenal insufficiency. ACTH stimulation test was normal.
PRESTON on CKD 3 AA -PRESTON improved. Suspect volume depletion.
Dysphagia -completed video swallowing study. Minced/moist diet with mildly thickened liquids recommended by speech therapy. GI recommends outpatient evaluation. Spoke with Dr. Kay.
Elevated LFTs: Characterized by elevated transaminases. Bilirubin and alkaline phosphatase normal. Atorvastatin on hold. Ultrasound shows no evidence of cholelithiasis, cholecystitis or biliary ductal dilation. Liver echogenicity appears normal
with no evidence of a focal lesion. Transaminases starting to trend down. Etiology of elevation unclear but could be medication induced. Completed course of Unasyn. Recommend repeat CMP in 1 week as an outpatient. Can resume amiodarone on
discharge.
Recent fall with nasal fracture:
Pain control
PT eval
History of schizophrenia/depression/cognitive impairment/former alcoholic:
On Depakote olanzapine and Zoloft--> psychiatry consulted and adjusting his medications accordingly. Psychiatry to comment on discharge dose of olanzapine, as the dose has already been reduced from 20 mg daily to 15. Dose this morning was held due
to concerns of oversedation.
Chronic systolic CHF:
On diuresis but holding due to n.p.o. and hypotension. Continue po furosemide.
On b-blockers
Paroxysmal atrial fibrillation:
Sinus bradycardia on admission EKG
Continue Eliquis, aspirin per cardiology.
On amiodarone for antiarrhythmic-appears to be a high dose and cardiology consulted and decreased doses to 200 mg daily now.
DM2 with hypoglycemia -hemoglobin A1c 5.2%. Has had intermittent bouts of hypoglycemia in the hospital. ACTH stimulation test ordered as above.
BPH
PAD -stable.
DVT prophylaxis:
Eliquis
CODE STATUS:
Full code
Dispo - stable for discharge back to [facility] today. Case management aware. Will need outpatient follow-up with GI to evaluate for esophageal dysmotility.
I left a voicemail for patient's guardian Yamini Tran to call me back with any questions.
I did try to reach patient's brother Nasir but could not connect via his home number or cell phone. Unable to leave a message.
32 minutes spent in discharge process.
Anticipated Discharge: Today
Subjective/Interval History
-
Date of Service: July 20, 2024
Patient seen and examined. Awake, alert today. No complaints.
Objective Data
-
Labs:
Laboratory Results
07/20/24
08:39
Total Bilirubin 0.6
AST 242 H
ALT 215 H
Alkaline Phosphatase 90
Vital Signs:
Vital Signs
Temp Pulse Resp BP Pulse Ox
98.3 F 61 20 107/72 93
07/20/24 07:29 07/20/24 07:29 07/20/24 07:29 07/20/24 07:45 07/20/24 07:29
I&O
07/19/24 07/20/24 07/21/24
06:59 06:59 06:59
Intake Total 2039 1675 / 1675
Output Total 1325 / 1325 760 / 760
Balance 715 / 715 915 / 915
Review of Systems
-
History Source: Patient
All other systems: Reviewed and negative
[2024-07-20 09:54] LABS: Hepatitis B Surface Antigen Negative (Negative)
[2024-07-20 10:12] LABS: Hepatitis B Core Ab, Total Negative (Negative); Hepatitis C Antibody Negative (Negative)
[2024-07-20 11:09] LABS: Hepatitis A IgM Antibody Negative (Negative)
[2024-07-20 11:26] LABS: Glucose - Point of Care 122 mg/dl (70-99)
[2024-07-20 11:30] VITALS: BP 118/61
--- NOTE | 2024-07-20 11:33 | W.DS.TRANS ---
DC Summary - Analytical Data [employer]er
-
Discharge Instructions:
Discharge Diagnosis/Procedures Aspiration pneumonia, acute kidney injury,
dysphagia, elevated liver enzymes, hypoglycemia
Diet Other diet
Additional Diets Minced and moist diet, mildly thick nectar
liquids
Activity With assistance,As tolerated
Driving Restrictions No driving
Bathing Restrictions None
Instructions:
Stand-Alone Forms:
Changes to Home Medications: Yes
Discharge Medications:
DC Medications w/original date entered in [facility]
acetaminophen 325 mg tablet 650 mg PO Q4HPRN PRN mild pain, temp>100.4 04/07/19
aspirin 81 mg tablet,delayed release 81 mg PO DAILY Blood clot prevention/tx 04/07/19
atorvastatin 20 mg tablet 60 mg PO HS High cholesterol 04/07/19
bisacodyl 10 mg rectal suppository (OneLAX Bisacodyl) 10 mg AL DAILYPRN PRN if no bm aftr sorbitol 04/07/19
cholecalciferol (vitamin D3) 25 mcg (1,000 unit) tablet 1,000 units PO DAILY Supplement 04/07/19
sennosides 8.6 mg tablet (senna) 1 tab PO BID Constipation 04/07/19
sertraline 50 mg tablet 50 mg PO DAILY Mental Health/Anxiety 04/07/19
sorbitol 70 % solution 30 ml PO DAILYPRN PRN constipation 04/07/19
furosemide 20 mg tablet 20 mg PO DAILY 05/17/19
docusate sodium 100 mg capsule 100 mg PO BID Constipation 01/16/21
metoprolol succinate 50 mg tablet,extended release 24 hr (Toprol XL) 75 mg PO DAILY Heart Disease/Condition 01/16/21
calcium carbonate (Calcium 600) 1,200 mg PO DAILY Supplement 07/12/24
guaifenesin 600 mg tablet, extended release 12 hr 600 mg PO BIDPRN PRN cough 07/12/24
polyethylene glycol 3350 17 gram oral powder packet (Miralax) 17 g PO DAILY Constipation 07/12/24
sodium phosphates 19 gram-7 gram/118 mL enema (Fleet Enema) 118 ml AL DAILYPRN PRN if no bm aftr dulcalax 07/12/24
tamsulosin 0.4 mg capsule (Flomax) 0.8 mg PO HS Urinary Issue 07/12/24
amiodarone 200 mg tablet 200 mg PO DAILY #0 tabs 07/20/24
apixaban 5 mg tablet (Eliquis) 5 mg PO BID #0 tabs 07/20/24
divalproex 500 mg tablet,delayed release 1,000 mg (2 x 500 mg) PO HS #0 tabs 07/20/24
divalproex 500 mg tablet,delayed release 500 mg PO HS #0 tabs 07/20/24
olanzapine 5 mg tablet 15 mg (3 x 5 mg) PO DAILY #0 tabs 07/20/24
thiamine mononitrate (vit B1) 100 mg tablet 100 mg PO DAILY #0 tabs 07/20/24
Home Medication Changes
Olanzapine dose reduced to 15 mg daily.
Pending Results: No
--- NOTE | 2024-07-20 13:34 | CM ---
Chart reviewed and patient has been cleared for discharge today, plan is for patient to return to [facility], disease case manager rn reached out to patient's guardian Yamini Tran and faxed discharge summary .
Plan; Patient to transfer to [facility] today at 3pm.
Report [phone]
== END 2024-07-20 14:51 | DRG 177 ==
LOC: 4 WEST ACU 19:21
PROVIDERS: Clinical Nurse Specialist Family Health; Emergency Medicine; Hospitalist; Internal Medicine; ADMITTING PHYSICIAN Hospitalist; ATTENDING PHYSICIAN Hospitalist; CONSULT PHYSICIAN Internal Medicine Cardiovascular Disease; CONSULT PHYSICIAN Internal Medicine Gastroenterology; CONSULT PHYSICIAN Psychiatry & Neurology Neurology; CONSULT PHYSICIAN Psychiatry & Neurology Psychiatry; EMERGENCY PHYSICIAN Emergency Medicine
DX: J69.0 Pneumonitis due to inhalation of food and vomit (principal); G93.41 Metabolic encephalopathy; I61.8 Other nontraumatic intracerebral hemorrhage; I13.0 Hypertensive heart and chronic kidney disease with heart failure and stage 1 through stage 4 chronic kidney disease, or unspecified chronic kidney disease; I50.22 Chronic systolic (congestive) heart failure; N17.9 Acute kidney failure, unspecified; R13.10 Dysphagia, unspecified; N18.31 Chronic kidney disease, stage 3a; E11.22 Type 2 diabetes mellitus with diabetic chronic kidney disease; E11.649 Type 2 diabetes mellitus with hypoglycemia without coma; I48.0 Paroxysmal atrial fibrillation; I25.5 Ischemic cardiomyopathy; K71.9 Toxic liver disease, unspecified
CPT/HCPCS: 36600; 70450; 70544; 70547; 70551; 71045; 71046; 74176; 74230; 76700; 80053; 80061; 80076; 80164; 80306; 81003; 81015; 82140; 82306; 82533; 82607; 82746; 82805; 82962; 83036; 83605; 83735; 83880; 84443; 84484; 85025; 85610; 86704; 86709; 86803; 87040; 87070; 87340; 87502; 87811; 92526; 92610; 92611; 93005; 93306; 97163; 97530; 97550; 99291; Q9950

== ENCOUNTER 2024-07-23 18:39 | Inpatient (IN) | payer MEDICARE, OTHER, SELFPAY ==
[2024-07-23 15:03] VITALS: BP 88/55
[2024-07-23 15:08] VITALS: BP 88/55
[2024-07-23 15:21] VITALS: BMI 31.5
--- NOTE | 2024-07-23 15:25 | ED.GENMED ---
History of Present Illness
General
Chief Complaint: Pneumonia Symptoms
Source: patient
Exam Limitations: none
Time Seen by Provider: 07/23/24 15:18
History of Present Illness
History of Present Illness:
See MDM
Past History
Past History
ED Past Medical History: Arrthythmia (Paroxysmal atrial fibrillation), CHF, COPD, HTN, NIDDM, Renal failure, Psychiatric (Bipolar, schizophrenia), Other (peripheral arterial disease, degenerative joint disease, cardiomyopathy, ischemic lower
extremity disease) and Other (Anemia, GI bleed, bilateral lower extremity dry gangrene)
ED Past Surgical History: Other (Right femoral toegv-avb-cxil bypass)
Social History
Tobacco: Former smoker
Alcohol: Chronic alcoholic
Personal: Single
Living: [facility]
Employment: Disabled
Family History
Family History: Unable to obtain
Phy Exam
Physical Exam
Physical Exam:
See MDM
Course
Orders/Labs/Results
Orders:
Orders
07/23/24
Electrocardiogram (*1) Stat
Reason for Study: Shortness of Breath
07/23/24 15:00
CR Chest - 2 Views Urgent
Comment:
Reason For Exam: shortness of breath
07/23/24 15:02
EKG- Treatment ONCE
07/23/24 15:45
COVID-19 Antigen Urgent
Source: Nasal Swab
Complete Blood Count/With Diff Urgent
Lactic Acid Urgent
Influenza A+B Rapid Molecular Urgent
[facility] Source: Nasal Swab
Specimen Description:
07/23/24 17:06
Comprehensive Metabolic Panel Urgent
07/23/24 17:46
0.9% Sodium Chloride 500 ml [Nss] 500 ml IV BOLUS
Piperacillin/Tazo 3.375 Gram [Zosyn] 3.375 gram in 50 ml IV NOW
Vancomycin [Vancocin] 2,000 mg 0.9% Sodium Chloride 500 ml [Nss] 500 ml IV NOW
Abnormal Lab Results
07/23/24 07/23/24
15:45 17:06
RBC 2.99 L 10^6/uL
(4.70-6.10)
Hgb 9.2 L g/dL
(13.0-18.0)
Hct 27.3 L %
(39.0-52.0)
RDW 16.8 H %
(11.5-14.5)
MPV 10.7 H fL
(7.4-10.4)
Abs Immat Gran (auto) 0.1 H 10^3/uL
(0-0.05)
Absolute Monos (auto) 0.9 H 10^3/uL
(0.1-0.6)
Immature Gran % 1.2 H %
(0-0.5)
Lymphocytes % 18.3 L %
(20.5-51.1)
Chloride 110 H mmol/L
(98-107)
BUN 61 H mg/dl
(9-20)
Creatinine 3.1 H mg/dL
(0.7-1.3)
Calcium 8.2 L mg/dl
(8.4-10.2)
AST 364 H U/L
(17-59)
ALT 227 H U/L
(0-50)
Total Protein 5.7 L g/dl
(6.3-8.2)
Albumin 2.2 L g/dl
(3.5-5.0)
07/23/24 15:45
07/23/24 17:06
Vital Signs
Initial and Last Documented VS:
Initial Vital Signs
Resp Pulse Ox
19 82
07/23/24 14:59 07/23/24 14:59
Last Documented Vital Signs
Temp Pulse Resp BP Pulse Ox
98.3 F 57 16 108/89 92
07/23/24 15:03 07/23/24 16:45 07/23/24 16:45 07/23/24 16:00 07/23/24 17:00
MDM/Problems Addressed
Differential Diagnosis Includes:
HPI and MDM Narrative:
63-year-old male presenting for evaluation of hypoxia and low blood pressure. Per EMS, his nursing facility called because patient is not improving. He was recently admitted for altered mental status which was believed to be multifactorial related
to PRESTON, hypoxia and aspiration pneumonia. On exam, patient is sitting in bed comfortably. He does not want coarse breath sounds. He does not complain of shortness of breath but pulse ox is in mid to low 80s despite being on 2 L nasal cannula.
Will increase to 4 L. Will repeat chest x-ray and obtain basic blood work
Physical exam
General: Well appearing and non-toxic
HEENT: protecting airway. Dry mucous membranes. Poor dentition
Neck: appears supple
CV: No evidence of cyanosis. Bradycardic
Resp: No accessory muscle use. Rhonchorous breath sounds
Abd: Non-distended
Extremities: No deformities. No leg edema
Neuro: alert
Psych: Normal affect
Skin: Intact
Problems Addressed including Acute and Chronic Conditions affecting care:
1. Hypoxic
Acuity: acute
Prognosis: unstable
Details: Supplemental oxygen increased. Will repeat chest x-ray
Updates
X-ray confirms pneumonia. Given the worsening hypoxia, will start antibiotics and admit. Patient also found to have an PRETSON. Will start fluid
Differential Diagnosis (but not limited to): Aspiration pneumonia, viral syndrome, pulmonary embolus
Testing considered: CT PE but records indicate that he is on Eliquis
Drug therapy (if applicable): OTC meds, please see d/c instruction regarding Rx drugs
Amount and/or Complexity of Data Reviewed
Clinical info obtained from: Patient
External data reviewed: N/A
Labs I independently reviewed (but not limited to): Elevated creatinine
Radiology: X-ray independently reviewed: Bibasilar pneumonia on chest x-ray
Pulse Ox: hypoxic
EKG independently reviewed: Sinus bradycardia, left axis, no STEMI
Material Control Specialist: Sinus rhythm
Critical Care: N/A
Risk of Complication:
Social Determinants of health: Good social support
Discussed with other providers: Hospitalist
Escalation of Care includes Admit/Obs: Given the persistent pneumonia and worsening hypoxia and PRESTON, will admit
Occasional wrong word or 'sound a like' substitutions may have occurred due to the inherent limitations of voice recognition software. Read the chart carefully and recognize, using context, where substitutions have occurred.
*Critical Care Note
Total Time (30-74mins, 75-104mins- exclusive of procedures): Not Applicable
ED Attending Note
-
Portions of this chart may have been created with voice recognition software.� Occasional wrong word or��sound alike� substitutions may have occurred due to the inherent limitations of voice recognition software.
Discharge Plan
Departure
Patient Disposition: Admit
Date of Disposition: 07/23/24
Time of Disposition: 17:57
Admit to: Med/Surg
Presentation/result/management discussed w/ accepting MD/DO: Hospitalist
Discharge Problem:
PNA (pneumonia), PRESTON (acute kidney injury), Hypoxia
Prescriptions:
No Action
cholecalciferol (vitamin D3) 1,000 UNITS tablet
1,000 units PO DAILY
sennosides [senna] 1 TABLET tablet
1 tab PO BID
acetaminophen 325 MG tablet
650 mg PO Q4HPRN PRN (Reason: mild pain, temp>100.4)
atorvastatin 20 MG tablet
60 mg PO HS
aspirin 81 MG tablet,delayed release (DR/EC)
81 mg PO DAILY
bisacodyl [OneLAX Bisacodyl] 10 MG suppository
10 mg CO DAILYPRN PRN (Reason: if no bm aftr sorbitol )
sorbitol 30 ML solution
30 ml PO DAILYPRN PRN (Reason: constipation)
sertraline 50 MG tablet
50 mg PO DAILY
furosemide 20 MG tablet
20 mg PO DAILY 0RF
metoprolol succinate [Toprol XL] 50 MG tablet extended release 24 hr
75 mg PO DAILY
docusate sodium 100 MG capsule
100 mg PO BID
polyethylene glycol 3350 [Miralax] 17 gram Powder In Packet
17 g PO DAILY
calcium carbonate [Calcium 600] 600 mg calcium (1,500 mg) Tablet
1,200 mg PO DAILY
tamsulosin [Flomax] 0.4 mg Capsule
0.8 mg PO HS
Fleet Enema 19-7 gram/118 mL Enema
118 ml CO DAILYPRN PRN (Reason: if no bm aftr dulcalax)
guaifenesin 600 mg Tablet Extended Release 12hr
600 mg PO BIDPRN PRN (Reason: cough)
divalproex 500 mg Tablet,Delayed Release (Dr/Ec)
500 mg PO HS Qty: 0 0RF
divalproex 500 mg Tablet,Delayed Release (Dr/Ec)
1,000 mg PO HS Qty: 0 0RF
Eliquis 5 mg Tablet
5 mg PO BID Qty: 0 0RF
amiodarone 200 mg Tablet
200 mg PO DAILY Qty: 0 0RF
thiamine mononitrate (vit B1) 100 mg Tablet
100 mg PO DAILY Qty: 0 0RF
olanzapine 5 mg Tablet
15 mg PO DAILY Qty: 0 0RF
Referrals:
Arnoldo Man DO [Family Provider] -
Interventions
Interventions:
*Risk Screen - Suicide Last Done: 07/23/24 15:03
*General Assessment Last Done: 07/23/24 15:03
*Neglect/Abuse Screening Last Done: 07/23/24 15:03
*ED- Fall Risk Assessment Last Done: 07/23/24 15:22
*ED COVID-19 Vaccine History Last Done: 07/23/24 15:22
ED- Cardiac Assessment Last Done: 07/23/24 16:13
ED- Pulmonary Assessment Last Done: 07/23/24 16:13
Discharge Date and Time
Print Language: ALBANIAN
[2024-07-23 16:00] VITALS: BP 108/89
[2024-07-23 16:03] LABS: % Basophils 0.6 % (0-2); % Eosinophils 1.2 % (0-6); % Immature Granulocytes 1.2 % (0-0.5); % Lymphocytes 18.3 % (20.5-51.1); % Monocytes 9.3 % (1.7-9.3); % Neutrophils 69.4 % (42.2-75.2); Absolute Basophils 0.1 10^3/uL (0-0.2); Absolute Eosinophils 0.1 10^3/uL (0-0.7); Absolute Immature Granulocytes 0.1 10^3/uL (0-0.05); Absolute Lymphocytes 1.7 10^3/uL (1.2-3.4); Absolute Monocytes 0.9 10^3/uL (0.1-0.6); Absolute Neutrophils 6.5 10^3/uL (1.4-6.5); Hematocrit 27.3 % (39.0-52.0); Hemoglobin 9.2 g/dL (13.0-18.0); Mean Corp Hgb Conc. 33.7 g/dL (33.0-37.0); Mean Corpuscular Hgb 30.8 pg (27.0-31.0); Mean Corpuscular Volume 91.3 fL (80.0-94.0); Mean Platelet Volume 10.7 fL (7.4-10.4); Nucleated Red Blood Cells % 0 % (-); Platelet Count 244 10^3/uL (130-400); Red Blood Cell Count 2.99 10^6/uL (4.70-6.10); Red Cell Dist. Width 16.8 % (11.5-14.5); White Blood Cell Count 9.4 10^3/uL (4.8-10.8)
[2024-07-23 16:29] LABS: COVID-19 Antigen Negative (Negative)
[2024-07-23 17:00] LABS: Lactic Acid 0.9 mmol/L (0.7-2.0)
[2024-07-23 17:40] LABS: ALT (SGPT) 227 U/L (0-50); AST (SGOT) 364 U/L (17-59); Albumin 2.2 g/dl (3.5-5.0); Alkaline Phosphatase 122 U/L (38-126); Blood Urea Nitrogen 61 mg/dl (9-20); Calcium 8.2 mg/dl (8.4-10.2); Carbon Dioxide 25 mmol/L (22-30); Chloride 110 mmol/L (98-107); Glucose 73 mg/dl (70-99); Potassium 4.5 mmol/L (3.5-5.1); Sodium 142 mmol/L (135-145); Total Bilirubin 1.3 mg/dl (0.2-1.3); Total Protein 5.7 g/dl (6.3-8.2); eGFR 21.76
[2024-07-23 18:00] VITALS: BP 107/93
[2024-07-23] MEDS: NSS 500 IV (18:03)
[2024-07-23] MEDS: ZOSYN 50 IV (18:03)
--- NOTE | 2024-07-23 18:16 | HPS.HSE ---
Family Physician
-
Family Physician: Arnoldo Man, DO
Chief Complaint
-
Weakness
History of Present Illness
63-year-old male with multiple medical problems transferred back to the hospital again from his long-term for weakness and possible aspiration.
Noted to be hypoxic in the emergency room requiring 4 L nasal cannula.
Patient cannot provide any details of history due to underlying cognitive impairment and schizophrenia.
He was just hospitalized and discharged July 20 with a diagnosis of aspiration pneumonia, PRESTON on CKD, acute encephalopathy, and dysphagia.
Medical History
Past Medical History
Past Medical History: Reports Other
Additional Past Medical History:
Dysphagia
Aspiration pneumonia
Intermittent hypoglycemia
CKD 3a
Chronic heart failure with reduced EF
Paroxysmal atrial fibrillation
DM2
BPH
PAD
Nasal fracture
Schizophrenia
Depression
Cognitive impairment
Former alcoholic
Past Surgical History: Reports Other
Additional Past Surgical History:
Hernia repair
Social History
Tobacco: Former Smoker
Alcohol: Former
Drug: None
Living: Detention
Employment: Not Employed
Family History
Family History: Not pertinent
Allergies / Home Medications
Allergies reflects when Allergies were last updated in [facility].
Home Medications with original date entered in [facility]
Allergy/Medication List:
Allergies
Allergy/AdvReac Type Severity Reaction Status Date / Time
haloperidol Allergy Unknown Verified 07/23/24 14:58
Home Medications
acetaminophen 325 mg tablet 650 mg PO Q4HPRN PRN mild pain, temp>100.4 04/07/19
aspirin 81 mg tablet,delayed release 81 mg PO DAILY Blood clot prevention/tx 04/07/19
atorvastatin 20 mg tablet 60 mg PO HS High cholesterol 04/07/19
bisacodyl 10 mg rectal suppository (OneLAX Bisacodyl) 10 mg LA DAILYPRN PRN if no bm aftr sorbitol 04/07/19
cholecalciferol (vitamin D3) 25 mcg (1,000 unit) tablet 1,000 units PO DAILY Supplement 04/07/19
sennosides 8.6 mg tablet (senna) 1 tab PO BID Constipation 04/07/19
sertraline 50 mg tablet 50 mg PO DAILY Mental Health/Anxiety 04/07/19
sorbitol 70 % solution 30 ml PO DAILYPRN PRN constipation 04/07/19
furosemide 20 mg tablet 20 mg PO DAILY 05/17/19
docusate sodium 100 mg capsule 100 mg PO BID Constipation 01/16/21
metoprolol succinate 50 mg tablet,extended release 24 hr (Toprol XL) 75 mg PO DAILY Heart Disease/Condition 01/16/21
calcium carbonate (Calcium 600) 1,200 mg PO DAILY Supplement 07/12/24
guaifenesin 600 mg tablet, extended release 12 hr 600 mg PO BIDPRN PRN cough 07/12/24
polyethylene glycol 3350 17 gram oral powder packet (Miralax) 17 g PO DAILY Constipation 07/12/24
sodium phosphates 19 gram-7 gram/118 mL enema (Fleet Enema) 118 ml LA DAILYPRN PRN if no bm aftr dulcalax 07/12/24
tamsulosin 0.4 mg capsule (Flomax) 0.8 mg PO HS Urinary Issue 07/12/24
amiodarone 200 mg tablet 200 mg PO DAILY #0 tabs 07/20/24
apixaban 5 mg tablet (Eliquis) 5 mg PO BID #0 tabs 07/20/24
divalproex 500 mg tablet,delayed release 1,000 mg (2 x 500 mg) PO HS #0 tabs 07/20/24
divalproex 500 mg tablet,delayed release 500 mg PO HS #0 tabs 07/20/24
olanzapine 5 mg tablet 15 mg (3 x 5 mg) PO DAILY #0 tabs 07/20/24
thiamine mononitrate (vit B1) 100 mg tablet 100 mg PO DAILY #0 tabs 07/20/24
Review of Systems
-
History Source: Patient
A 12 point ROS was completed and negative except as noted: Yes
Physical Exam
Vital Signs
Vital Signs
Temp Pulse Resp BP Pulse Ox
98.3 F 59 19 107/93 95
07/23/24 15:03 07/23/24 18:00 07/23/24 18:00 07/23/24 18:00 07/23/24 18:00
Physical Exam
General: Well Developed, Well Nourished, No Apparent Distress and Comfortable
HEENT: NormoCephalic, Anicteric and Moist mucous membranes
Respiratory: Rhonchi
Cardiac: S1/S2 and Regular Rhythm
GI: Soft, Non Tender and Non Distended
Musculoskeletal: No Clubbing, No Cyanosis, Edema, Left Lower Extremity and Edema, Right Lower Extremity
Skin: Warm and Dry
Neuro: Awake and Alert
Hematologic/Lymphatic: No Lymphadenopathy
Psych: Calm
Laboratory Results
-
07/23/24 15:45
07/23/24 17:06
Laboratory Results
Lactic Acid 0.9 mmol/L (0.7-2.0) 07/23/24 15:45
Total Bilirubin 1.3 mg/dl (0.2-1.3) 07/23/24 17:06
AST 364 U/L (17-59) H 07/23/24 17:06
ALT 227 U/L (0-50) H 07/23/24 17:06
Alkaline Phosphatase 122 U/L (38-126) 07/23/24 17:06
Impression/Plan
-
Acute hypoxic respiratory insufficiency -likely due to recurrent aspiration pneumonitis. Clinically doubt pneumonia as he is nontoxic, WBC count normal, afebrile. Stable 4 L nasal Oxygen.
Admit to MedSurg.
Recurrent aspiration pneumonitis -due to chronic dysphagia. N.p.o. until evaluated by speech therapy. Had video swallowing study last admission.
PRESTON on CKD 3a -suspect due to volume depletion. Continue IV fluid administration. Hold diuretics.
Chronic heart failure reduced EF -stable.
Paroxysmal atrial fibrillation -on Eliquis, amiodarone.
Schizophrenia
Obesity due to excess calories
DNR -confirmed with RAMO Kc. We spoke about goals of care and I recommend hospice given his recurrent hospitalizations, recurrent admissions, inability to thrive. RAMO agrees and we can consult hospice on discharge.
Recommend against feeding tube placement due to ongoing risk of aspiration, and his mental health will interfere with taking care of the tube. I anticipate he will likely pull out the tube which would cause significant injury.
RAMO agrees with holding off on feeding tube placement.
[2024-07-23] MEDS: VANCOCIN 540 MG IV (19:11)
[2024-07-23 21:00] VITALS: BP 110/60; BMI 27.3
[2024-07-23] MEDS: NSS 1000 IV (21:30)
[2024-07-23 22:11] LABS: Urine Albumin 1+ (Neg - Trace); Urine Bilirubin Negative (Negative); Urine Character Clear (Clear); Urine Color Yellow; Urine Glucose Negative (Negative); Urine Ketone Negative (Negative); Urine Leukocyte 1+ (Negative); Urine Nitrite Negative (Negative); Urine Occult Blood 4+ (Negative); Urine Specific Gravity 1.015 (<1.030); Urine Urobilinogen Negative (Neg - 1+)
[2024-07-23 22:19] LABS: Urine Granular Cast 0-2 /LPF (0)
[2024-07-23 22:20] LABS: Urine Bacteria Few (Negative)
[2024-07-23 22:43] VITALS: BMI 27.3
[2024-07-23 23:37] VITALS: BP 110/80
[2024-07-24 06:23] LABS: Blood Urea Nitrogen 55 mg/dl (9-20); Calcium 7.8 mg/dl (8.4-10.2); Carbon Dioxide 28 mmol/L (22-30); Chloride 110 mmol/L (98-107); Estimated Creatinine Clearance 35 ml/min; Glucose 71 mg/dl (70-99); Potassium 4.1 mmol/L (3.5-5.1); Sodium 145 mmol/L (135-145); eGFR 26.87
[2024-07-24 07:30] VITALS: BP 150/109
[2024-07-24 10:58] VITALS: BP 117/84
--- NOTE | 2024-07-24 11:02 | W.PN.HOSP.TC ---
Today's Communication/Plan
-
Continue IV fluids
Assessment / Plan
Assessment / Plan
Gen-AAOx3, NAD
HEENT-NC, AT, anicteric, clear oral mm
Neck-supple
CV-reg, no M, +S1/S2
Lungs-mild rhonchi
Abd-soft, NT, ND
Ext-no edema
Musculoskeletal-no cyanosis, clubbing
Skin-warm and dry
Neuro-grossly non-focal
Psych-calm, cooperative
Acute hypoxic respiratory insufficiency -likely due to recurrent aspiration pneumonitis. Clinically doubt pneumonia as he is nontoxic, WBC count normal, afebrile. Stable 4 L nasal Oxygen. Wean down oxygen as able.
Recurrent aspiration pneumonitis -due to chronic dysphagia. N.p.o. until evaluated by speech therapy. Had video swallowing study last admission.
PRESTON on CKD 3a -suspect due to volume depletion. Continue IV fluid administration. Hold diuretics. PRESTON improving.
Chronic heart failure reduced EF -stable.
Elevated transaminases -unclear etiology. Differential diagnosis includes adverse drug reaction versus other. On ultrasound liver looks unremarkable, 07/14/2024.
Paroxysmal atrial fibrillation -on Eliquis, amiodarone.
Schizophrenia -stable.
Obesity due to excess calories
DNR -confirmed with RAMO Kc, she is court appointed.
Dispo -anticipate discharge back to alf with plans for hospice. RAMO agrees. Updated case management.
Anticipated Discharge: Within 24 hours
Subjective/Interval History
-
Date of Service: July 24, 2024
Patient seen and examined. No complaints.
Objective Data
-
Labs:
Laboratory Results
07/24/24
05:27
Sodium 145
Potassium 4.1
Chloride 110 H
Carbon Dioxide 28
BUN 55 H
Creatinine 2.6 H
Glucose 71
Calcium 7.8 L
Vital Signs:
Vital Signs
Temp Pulse Resp BP Pulse Ox
97.7 F 90 20 117/84 96
07/24/24 07:30 07/24/24 07:30 07/24/24 07:30 07/24/24 10:58 07/24/24 07:30
I&O
07/23/24 07/24/24 07/25/24
06:59 06:59 06:59
Output Total 1450 / 1450
Balance -1450 / -1450
Review of Systems
-
History Source: Patient
All other systems: Reviewed and negative
[2024-07-24] MEDS: LR 1000 IV (11:21)
[2024-07-24] MEDS: NSS IV (11:26)
[2024-07-24 11:27] VITALS: BMI 27.3
--- NOTE | 2024-07-24 12:11 | CM ---
Patient seen at bedside.
IA completed
Spoke with Monika at [facility]
Patient resides LTC at [facility] in [place]
PLOF: Wheelchair, self propels, assist of 1 w/transfer to toilet/bed
DME: Wheelchair
Denies VN/Rehab
tt from hospitalist-patient can return to facility today & I spoke with Monika they will initiate hospice at facility
PCP: Arnoldo Man
Pharmacy: [facility]
PLAN: [facility] & they will initiate hospice at the facility
Report #: [phone] 3rd floor nursing
Fax #: [phone]
--- NOTE | 2024-07-24 12:24 | W.DS.TRANS ---
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
-
Discharge Instructions:
Sleep Apnea Risk Low
Discharge Diagnosis/Procedures Recurrent aspiration, dysphagia
Diet Other diet
Additional Diets pleasure feeds on hospice
Other Services Hospice
Instructions:
Stand-Alone Forms:
Changes to Home Medications: No
Discharge Medications:
DC Medications w/original date entered in [facility]
acetaminophen 325 mg tablet 650 mg PO Q4HPRN PRN mild pain, temp>100.4 04/07/19
sertraline 50 mg tablet 50 mg PO DAILY Mental Health/Anxiety 04/07/19
sodium phosphates 19 gram-7 gram/118 mL enema (Fleet Enema) 118 ml [place] DAILYPRN PRN if no bm aftr dulcalax 07/12/24
divalproex 500 mg tablet,delayed release 1,000 mg (2 x 500 mg) PO HS #0 tabs 07/20/24
olanzapine 5 mg tablet 15 mg (3 x 5 mg) PO DAILY #0 tabs 07/20/24
benztropine 1 mg tablet 1 mg PO DAILY 07/23/24
sennosides 8.6 mg tablet (senna) 8.6 mg PO BID 07/23/24
Home Medication Changes
Pending Results: No
--- NOTE | 2024-07-24 12:52 | PTOTSP ---
Speech therapy
Presentation: Patient was oriented to self. Patient was confused and required redirection throughout the session. Patient had difficulty following commands and continuing conversation topics.
07/19/24 VSE: [employer] recommended IDDSI 5 and mildly thick liquids without ARHP due to cognition.
Swallowing Function: [employer] observed patient with several individual presentations of ice chips, tsp of thins, tsp of mildly thick liquids, and tsp of puree solids in which patient demonstrated wet coughing, wet/ weak vocal quality, and delayed
coughing throughout the session.
Given patient's clinical presentation, hx of dysphagia/ dysphagia diet, and CXR, recommend NPO at this time. [employer] will trial PO at a later time in hopes to advance patient.
Recommendations:
1) NPO at this time
2) Patient is not appropriate for ARHP at this time due to cognition
3) Medications not by mouth if possible
4) Consideration of VSE
Plan: [employer] will continue to follow for dysphagia therapy; pending hospitalization.
[2024-07-24 15:30] VITALS: BP 106/50
== END 2024-07-24 16:28 | DRG 178 ==
LOC: 3 WEST ACU 18:39
PROVIDERS: ADMITTING PHYSICIAN Hospitalist; EMERGENCY PHYSICIAN Student in an Organized Health Care Education/Training Program; FAMILY PHYSICIAN Internal Medicine
DX: J69.0 Pneumonitis due to inhalation of food and vomit (principal); I13.0 Hypertensive heart and chronic kidney disease with heart failure and stage 1 through stage 4 chronic kidney disease, or unspecified chronic kidney disease; N17.9 Acute kidney failure, unspecified; I50.22 Chronic systolic (congestive) heart failure; R09.02 Hypoxemia; R13.10 Dysphagia, unspecified; N18.31 Chronic kidney disease, stage 3a; E11.22 Type 2 diabetes mellitus with diabetic chronic kidney disease; F20.9 Schizophrenia, unspecified; I48.0 Paroxysmal atrial fibrillation; Z66 Do not resuscitate; F10.21 Alcohol dependence, in remission; Z87.891 Personal history of nicotine dependence
CPT/HCPCS: 71046; 80048; 80053; 81003; 81015; 83605; 85025; 87502; 87811; 92610; 93005; 96374; 96375; 99285